=== PATIENT | female | born 1990 | race Caucasian/White ===

== ENCOUNTER → 2016-06-03 | Outpatient (CLI) | payer OTHER ==
--- NOTE | 2016-06-03 14:53 | US ---
Sonography Limited to the Right Upper Quadrant of the Abdomen Clinical History: 25-year-old female with right upper quadrant pain for 5 weeks, worsening after eati ng. The patient has a history of type 1 diabetes mellitus. ICD10 Diagnostic Code: R10.11. Technique: A curvilinear 5 MHz transducer was used to sonographically evaluate the right upper quadra nt of the abdomen. A linear 9 MHz transducer was used to evaluate the hepatic contour. A cine clip wa s acquired through the gallbladder, with the patient in a left lateral decubitus position. Color Dopp ler is used. Comparison study: None. Findings: The pancreas is seen in a limited fashion, and the visualized aspects appear normal. The ab dominal aorta is normal in size, and tapers normally. The visualized IVC is normal in caliber. The ma in portal vein is patent. There is no ascites or right pleural effusion. The liver measures 14.4 cm a long right midaxillary line. There is no focal hepatic mass. There is no intra- or extrahepatic bile duct dilatation. The common bile duct measures 2.9 mm. The gallbladder is moderately distended, with no stones, sludge, wall thickening, pericholecystic fluid, or sonographic Kim sign. The wall thick ness is 2.5 mm. The right kidney is at the lower limits of normal in size (given the patient's body h abitus), and measures 8.3 x 4.4 x 5.0 cm with a normal renal cortical thickness of 1.1 cm. There is n o hydronephrosis or focal renal mass. Impression: There is no sonographic explanation for the patient's postprandial right upper quadrant p ain. If there is further clinical concern regarding possible gallbladder dyskinesia, a nuclear medicine he patobiliary scan with gallbladder ejection fraction could be considered.
== END ==
LOC: BRMIMAGING 13:02
DX: R10.11 Right upper quadrant pain (principal)
CPT/HCPCS: 76705-PO

== ENCOUNTER → 2016-06-18 | Outpatient (CLI) | payer OTHER ==
[~2016-06-18] MED LIST: SINCALIDE 5 MCG VIAL IJ ONE
--- NOTE | 2016-06-18 11:40 | NM ---
Nuclear Medicine Hepatobiliary Scan with ejection fraction. Clinical Indications: Right upper quadrant pain. Comparison: Abdominal ultrasound June 03, 2016. Technique: The patient received 5.4 mCi technetium 99m Choletec intravenously and images of the abdo men were obtained immediately and then at 1 minute intervals through 30 minutes. Supplemental images were taken in multiple projections. At 30 minutes 50.7 grams of fat in Nepro was administered and dy namic imaging was performed over the gallbladder for 30 minutes. A time-activity curve was generated. Findings: Clearance of activity by the liver is normal. Activity promptly reaches the biliary ducts and duodenum. The gallbladder shows prompt uptake at 10 minutes, with no evidence of obstruction of the cystic duct. Activity is present in the small bowel. Following administration of fat and Nepro there is normal emptying of the gallbladder with the ejecti on fraction calculated at 69 % (normal is 35 to 75%). Impression: Normal study with no evidence for cystic or common duct obstruction.
== END ==
LOC: FIMAGING 08:15
DX: R10.11 Right upper quadrant pain (principal)
CPT/HCPCS: 78227; A9537

== ENCOUNTER 2017-11-28 13:34 | Inpatient (IN) | payer OTHER ==
--- NOTE | 2017-11-28 13:50 | EDPHY ---
H & P Stated Complaint: severe pain s/p port placement - Personal History LMP (Females 10-55): 1-7 Days Ago Current Tetanus Diphtheria and Acellular Pertussis (TDAP): Unsure - Medical/Surgical History Hx Asthma: No Hx Chronic Respiratory Disease: No Hx Diabetes: No Hx Cardiac Disease: No Hx Renal Disease: No Hx Cirrhosis: No Hx Alcoholism: No Hx HIV/AIDS: No Hx Splenectomy or Spleen Trauma: No Other PMH: DMI hypothyroid, stomach ca, chemo - Social History Smoking Status: Never smoked Time Seen by Provider: 11/28/17 13:49 Constitutional: Initial Vital Signs Temperature (C) 36.7 C 11/28/17 13:35 Respiratory Rate 18 11/28/17 13:35 Blood Pressure 106/69 11/28/17 13:35 O2 Delivery Mode Room Air Allergies/Adverse Reactions: ondansetron [From Zofran] Allergy (Verified 11/28/17 20:55) Other-Enter Comments Home Medications: Medication Instructions Recorded Control 1 tab PO HS 11/28/17 Chemo 1 dose IV Q14D 11/28/17 Citalopram [CeleXA] 20 mg PO HS 11/28/17 Insulin Pump, Patient Own 1 ea MISC AD 11/28/17 Levothyroxine [Synthroid 125 mcg 125 mcg PO DAILY06 11/28/17 (*)] Liothyronine Sodium [Cytomel 5 mcg 5 mcg PO DAILY 11/28/17 (*)] Melatonin [Melatonin 3 MG (*)] 3 mg PO HS 11/28/17 Medical Decision Making - Diagnostics Imaging Results: Imaging Impressions Extremity Venous Study 11/28/17 13:54 Impression: No evidence of vein thrombosis or loculated fluid collection in the right arm or neck. Results called and discussed with Mariano Cabello MD, at 11/28/2017 16:[address] 11/28/17 16:58 Impression: Negative targeted CT of the neck with attention to the tunneled catheter at the site of patient's symptomatology with no abscess or other abnormality identified. There is no evidence for vascular obstruction. Results called and discussed with Mariano Cabello MD on 11/28/2017 at 18:37. ED Course/Re-evaluation: CHIEF COMPLAINT: Port site pain HISTORY OF PRESENT ILLNESS: The patient is a 27 y/o female with a history of a right internal jugular power port placement and stomach cancer complaining of severe pain at the site where the incised the right IJ. On 11/17/17, 1.5 weeks ago, she had the right IJ power port placed. She initially had mild tenderness at the site of the port, but this was to be expected. 1 week ago she had another round of chemotherapy without complications. Over the last several days she developed pain at the site of the right IJ incision. She tried applying heat and taking pain medications, including Percocet, without relief of symptoms. Today the pain exacerbated, so she decided to present to the emergency department. Patient reports that Fentanyl and Dilaudid work well for her pain. Denies chest pain, shortness of breath, numbness, paresthesias, headache. REVIEW OF SYSTEMS: A 10 point review of systems was performed and is negative with the exception of the elements mentioned in the history of present illness. PHYSICAL EXAM: HR, BP, O2 Sat, RR. Temp noted General Appearance: Alert, well hydrated, appropriate, and non-toxic appearing. Head: Atraumatic without scalp tenderness or obvious injury Eyes: Pupils equal, round, reactive to light and accommodation, EOMI, no trauma , no injection. Ears: Clear bilaterally, no perforation, normal landmarks Nose: Atraumatic, no rhinorrhea, clear. Throat: There is no erythema or exudates, no lesions, normal tonsils, mucus membranes moist. Neck: Severe tenderness of the right internal jugular at site of incision to place the port. Supple, no lymphadenopathy. Respiratory: No retractions, no distress, no wheezes, and no accessory muscle use. Lungs are clear to auscultation bilaterally. Cardiovascular: Regular rate and rhythm, no murmurs, rubs, or gallops. Bilateral carotid, radial, dorsalis pedis, and posterior tibial pulses intact. Good capillary refill all extremities. Gastrointestinal: Abdomen is soft, nontender, non-distended, no masses, no rebound, no guarding, no peritoneal signs. Musculoskeletal: Normal active ROM of all extremities, atraumatic. Neurological: Alert, appropriate, and interactive. Non-focal neuro. Skin: No rashes, good turgor, no nodules on palpation. Past medical history: DMI, hypothyroid, stomach cancer on chemo Past surgical history: Right IJ power port placement Family history: Denies Social history: Mother at bedside, single, employed DIAGNOSTICS/PROCEDURES/CRITICAL CARE TIME: Soft tissue neck US: Pending at time of shift change DIFFERENTIAL DIAGNOSIS: The differential diagnosis for the patient's neck pain included but was not limited to power port placement complication, blood clot, fluid collection, musculoskeletal pain, abscess. MEDICAL DECISION MAKING: The patient is a 27 y/o female with a history of a right internal jugular power port placement and stomach cancer presenting with severe pain at the site where right IJ was incised. On exam she has severe tenderness of the right internal jugular at site of incision to place the port. Soft tissue neck US ordered; 1 mg IV Dilaudid and 4 mg IV Zofran given. Laboratory studies are not indicated at this time. 1500: Patient care turned over to Dr. Cabello at shift change. Ultrasound studies still pending. (Nayan Zuñiga) Other Provider: Received signout from Zara at 1500. Patient with pain in R neck after recent port placement. Plan to obtain US results and likely discharge home. 1550: US called to me as normal. On re-assessment of patient, she still complains of severe pain in to proximal right neck, no chest pain. I will expand workup to include labs and likely CT of neck as etiology of pain is unclear. 1815: Patient noted to be neutropenic and now spiking a fever. I have ordered lactate, blood cultures, empiric antibiotics. Clearly patient will need to be admitted - family is unsure if they want to be admitted here vs. transfer to [facility] where her oncologist is. I have asked doc line to be paged. 1835: Limited CT-chest called to me as negative for abnormality, per Dr. Kohli. 1900: Patient comfortable with admission here at [facility]. I spoke with [facility] oncologist on-call and they agree with plan. Venous lactate <2 so no signs of septic shock. Patient treated with IV cefepime after blood cultures drawn and IV NS. On re-evaluation she feels improved. Etiology of pain in right proximal neck currently unknown. (Mariano Cabello) - Data Points Laboratory Results: Laboratory Results 11/28/17 16:45 11/28/17 11/28/17 11/28/17 18:20 16:57 16:45 WBC 0.10 10^3/uL L* 10^3/uL (3.80-9.50) RBC 4.36 10^6/uL 10^6/uL (4.18-5.33) Hgb 13.2 g/dL g/dL (12.6-16.3) POC Hgb 13.9 gm/dL gm/dL (12.6-16.3) Hct 38.9 % % (38.0-47.0) POC Hct 41 % % (38-47) MCV 89.2 fL fL (81.5-99.8) MCH 30.3 pg pg (27.9-34.1) MCHC 33.9 g/dL g/dL (32.4-36.7) RDW 13.0 % % (11.5-15.2) Plt Count 121 10^3/uL L 10^3/uL (150-400) MPV 10.5 fL fL (8.7-11.7) Neut % (Auto) ARCHITECTURE INSTRUCTOR Lymph % (Auto) ARCHITECTURE INSTRUCTOR [place] % (Auto) ARCHITECTURE INSTRUCTOR Eos % (Auto) ARCHITECTURE INSTRUCTOR Baso % (Auto) ARCHITECTURE INSTRUCTOR Nucleat RBC Rel Count ARCHITECTURE INSTRUCTOR Absolute Neuts (auto) ARCHITECTURE INSTRUCTOR Absolute Lymphs (auto) ARCHITECTURE INSTRUCTOR Absolute Monos (auto) ARCHITECTURE INSTRUCTOR Absolute Eos (auto) ARCHITECTURE INSTRUCTOR Absolute Basos (auto) ARCHITECTURE INSTRUCTOR Absolute Nucleated RBC ARCHITECTURE INSTRUCTOR Immature Gran % ARCHITECTURE INSTRUCTOR Seg Neutrophils % 1 % % Band Neutrophils % 1 % % Lymphocytes % 91 % % Monocytes % 2 % % Eosinophils % 3 % % Basophils % 2 % % Immature Gran # ARCHITECTURE INSTRUCTOR RBC/WBC/PLT Morphology NORMAL (NORMAL) Platelet Estimate DECREASED L (ADEQ) Smear Review By Pending VBG Lactic Acid 1.7 mmol/L mmol/L (0.7-2.1) POC Sodium 137 mEq/L mEq/L (135-145) POC Potassium 4.3 mEq/L mEq/L (3.3-5.0) POC Chloride 101 mEq/L mEq/L (97-110) POC BUN 11 mg/dL mg/dL (7-23) POC Creatinine 0.7 mg/dL mg/dL (0.6-1.0) POC Glucose 235 mg/dL H mg/dL (70-100) Medications Given: Hydromorphone HCl (Dilaudid) 0.2 - 1 mg IVP Q2 PRN PRN Reason: Pain, Severe Unable to Take PO Stop: 12/08/17 19:25 Last Admin: 11/28/17 21:15 Dose: 1 mg Sodium Chloride (Ns) 1,000 mls @ 150 mls/hr IV CONT JLUIS Stop: 05/27/18 19:29 Last Admin: 11/28/17 20:58 Dose: 1,000 mls Discontinued Medications Acetaminophen (Tylenol Rectal) 650 mg OK EDNOW ONE Stop: 11/28/17 18:31 Last Admin: 11/28/17 18:39 Dose: 650 mg Hydromorphone HCl (Dilaudid) 1 mg IVP EDNOW ONE Stop: 11/28/17 13:54 Last Admin: 11/28/17 14:20 Dose: 1 mg Hydromorphone HCl (Dilaudid) 1 mg IVP EDNOW ONE Stop: 11/28/17 16:03 Last Admin: 11/28/17 16:05 Dose: 1 mg Hydromorphone HCl (Dilaudid) 1 mg IVP EDNOW ONE Stop: 11/28/17 18:32 Last Admin: 11/28/17 18:35 Dose: 1 mg Sodium Chloride (Ns) 1,000 mls @ 0 mls/hr IV EDNOW ONE; Wide Open PRN Reason: Protocol Stop: 11/28/17 18:16 Last Admin: 11/28/17 18:39 Dose: 1,000 mls Cefepime HCl 2 gm/ Sodium (Chloride) 100 mls @ 200 mls/hr IV EDNOW ONE PRN Reason: Protocol Stop: 11/28/17 19:06 Last Admin: 11/28/17 19:45 Dose: 100 mls Sodium Chloride (Ns) 2,900 mls @ 5,800 mls/hr 30 ml/kg infuse over 30 min ( 2900 ml) IV EDNOW ONE PRN Reason: Protocol Stop: 11/28/17 19:06 Last Admin: 11/28/17 19:46 Dose: 2,900 mls Promethazine HCl (Phenergan) 12.5 mg IVP ONCE ONE Stop: 11/28/17 14:15 Last Admin: 11/28/17 14:20 Dose: 12.5 mg Promethazine HCl (Phenergan) 12.5 mg IVP ONCE ONE Stop: 11/28/17 18:31 Last Admin: 11/28/17 18:34 Dose: 12.5 mg Point of Care Test Results: Chemistry 11/28/17 16:57 POC Sodium 137 mEq/L mEq/L (135-145) POC Potassium 4.3 mEq/L mEq/L (3.3-5.0) POC Chloride 101 mEq/L mEq/L (97-110) POC BUN 11 mg/dL mg/dL (7-23) POC Creatinine 0.7 mg/dL mg/dL (0.6-1.0) POC Glucose 235 mg/dL H mg/dL (70-100) ISTAT H&H 11/28/17 16:57 POC Hgb 13.9 gm/dL gm/dL (12.6-16.3) POC Hct 41 % % (38-47) Departure - Departure Disposition: [facility] In[facility] Acute Report Scribed for: Nayan Zuñiga Report Scribed by: Cokoie Stanton Date of Report: 11/28/17 Time of Report: 13:51
[2017-11-28] MEDS ORDERED: HYDROmorphONE/DILAUDID 2 MG/ML INJ IVP ONE ×3 (13:53→18:31)
[2017-11-28] MEDS ORDERED: ONDANSETRON 4 MG/2 ML VIAL IVP ONE (13:53)
[2017-11-28] MEDS ORDERED: PROMETHAZINE HCL 25 MG/ML INJ IVP ONE ×2 (14:14→18:30)
[2017-11-28] MEDS ORDERED: PROMETHAZINE HCL 25 MG/ML INJ ONE (14:15)
[2017-11-28] MEDS ORDERED: HYDROmorphONE/DILAUDID 1 MG/ML INJ ONE (16:03)
[2017-11-28] MEDS ORDERED: IOPAMIDOL (ISOVUE-300) 100 ML BTL ONE (17:14)
[2017-11-28 17:36] LABS: PLATELET COUNT 121 10^3/uL (150-400)
[2017-11-28] MEDS ORDERED: NS 1,000 ML IV ONE ×2 (18:15→22:08)
[2017-11-28] MEDS ORDERED: ACETAMINOPHEN 650 MG SUPP PR ONE (18:30)
[2017-11-28] MEDS ORDERED: CEFEPIME HCL 2 GM in NS 100 ML IV ONE (18:37)
[2017-11-28] MEDS ORDERED: NS 2,900 ML IV ONE (18:37)
[2017-11-28] MEDS ORDERED: ONDANSETRON DISINTEGRATING 4 MG TAB PO PRN (19:26)
[2017-11-28] MEDS ORDERED: ONDANSETRON 4 MG/2 ML VIAL IVP PRN (19:26)
[2017-11-28] MEDS: NS 1,000 ML IV SCH ×2 (20:58→23:01)
[2017-11-28] MEDS ORDERED: LOW OGESTREL PO SCH (21:00)
[2017-11-28] MEDS ORDERED: BIRTH CONTROL PO SCH (21:00)
[2017-11-28] MEDS: HYDROmorphONE/DILAUDID 1 MG/ML INJ IVP PRN (21:15)
[2017-11-28] MEDS ORDERED: NON-FORMULARY NEW DRUG (Insulin Pump, Patient Own 1 EA) MISC SCH (21:30)
[2017-11-28] MEDS ORDERED: D50W 25 GM/50 ML VIAL IVP PRN (21:42)
[2017-11-28] MEDS ORDERED: INSULIN PUMP, PATIENT OWN 1 EA MISC SCH (21:45)
[2017-11-28] MEDS: PROMETHAZINE HCL 25 MG/ML INJ IVP PRN (22:02)
[2017-11-28] MEDS: ACETAMINOPHEN 325 MG TAB PO PRN (22:06)
--- NOTE | 2017-11-28 22:13 | PDGENHP ---
History and Physical - Chief Complaint Acute neck pain - History of Present Illness Primary oncologist: Dr. Danny Roth at [facility] HPI: 27-year-old female presenting with acute neck pain characterized as an aching pain located in her right neck/right upper chest directly at the port cath incision site with associated fever, erythema, flushing, generalized fatigue. Patient reports the onset of the pain was several days prior, and duration has been persistent thereafter. The other symptoms including fever and fatigue began on the evening of presentation. Her pain has been somewhat alleviated by fentanyl and Dilaudid received in the emergency department. She otherwise denies any GI symptoms, reports that she has been eating and drinking normally, has been taking all of her home medications as prescribed. The patient received chemotherapy every 14 days, and her most recent dosage of Neulasta was 5 days prior. She reports that the Neulasta patch was leaking, they contacted the oncology coverage, and they were told that this was nothing to worry about. She subsequently received her most recent dosage of chemotherapy 1 day prior to this presentation. She reports that she has never experienced febrile neutropenia in the past. The patient also underwent right-sided IJ port placement on 11/17/2017, and at that time, the patient was experiencing what she felt was a URI. She was experiencing sore throat and sinus congestion. The port placement initially felt fine, but then several days prior to this presentation, the incision site in the right upper chest began to ache, as mentioned above. History Information - Allergies/Home Medication List Allergies/Adverse Reactions: ondansetron [From Zofran] Allergy (Verified 11/28/17 20:55) Other-Enter Comments Home Medications: Control 1 tab PO HS 11/28/17 [Last Taken 11/27/17 21:00] Chemo 1 dose IV Q14D 11/28/17 [Last Taken 11/21/17] Citalopram [CeleXA] 20 mg PO HS 11/28/17 [Last Taken 11/27/17 21:00] Insulin Pump, Patient Own 1 ea MISC AD 11/28/17 [Last Taken 11/28/17] Levothyroxine [Synthroid 125 mcg (*)] 125 mcg PO DAILY06 11/28/17 [Last Taken 08:00] Liothyronine Sodium [Cytomel 5 mcg (*)] 5 mcg PO DAILY 11/28/17 [Last Taken 07/17 08:00] Melatonin [Melatonin 3 MG (*)] 3 mg PO HS 11/28/17 [Last Taken 11/27/17 21:00] I have personally reviewed and updated: family history, medical history, social history, surgical history - Past Medical History Additional medical history: Rhabdomyosarcoma of the abdominal wall diagnosed in 2010, status post 11 months of treatment beginning at [facility], and then subsequent remission until September of 2017, when the area was noted in her right mid abdomen subcutaneous tissue, and she began receiving chemotherapy at [facility]. Retinopathy. Diabetes mellitus type 1. Hypothyroidism - Surgical History Additional surgical history: 11/17/2017 right IJ port placement. No previous bowel surgeries - Family History Additional family history: Sister with URI several days prior - Social History Smoking Status: Never smoked Alcohol Use: None Drug Use: None Additional social history: Independent in ADLs Review of Systems Review of Systems: ROS: 10pt was reviewed & negative except for what was stated in HPI & below Constitutional: Reports: fever, weakness EENMT: Reports: nose congestion, sore throat, other (Right neck pain) Physical Exam Physical Exam: Temp Pulse Resp BP Pulse Ox 38.6 C H 125 H 20 109/57 L 95 11/28/17 20:25 11/28/17 20:25 11/28/17 20:25 11/28/17 20:25 11/28/17 20:25 Constitutional: no apparent distress, chronically ill appearing, uncomfortable, No not in pain (Mild right neck pain) Eyes: PERRL, anicteric sclera, EOMI Ears, Nose, Mouth, Throat: hearing normal, other (Tacky mucous membranes) Cardiovascular: tachycardia, No systolic murmur, No irregularly irregular, No edema Respiratory: no respiratory distress, no rales or rhonchi, clear to auscultation Gastrointestinal: normoactive bowel sounds, soft, non-tender abdomen, no palpable masses, No distension Genitourinary: no bladder fullness, no bladder tenderness Skin: other (Blanchable erythema at the incision site along her lower right neck /right upper chest with a healed incision site, very mildly indurated, not fluctuant, port catheter is palpable in the subcutaneous tissue) Musculoskeletal: other (Painful antral flexion of the neck at the previous IJ site, but no meningismus) Neurologic: AAOx3, sensation intact bilaterally, No weakness Psychiatric: interacting appropriately, not anxious, not encephalopathic, thought process linear Lymph, Heme, Immunologic: other (No tender or enlarged submandibular or anterior cervical lymph nodes, mildly tender posterior cervical chain) Lab Data & Imaging Review 11/28/17 16:45 WBC 0.10 10^3/uL (3.80-9.50) L* 11/28/17 16:45 RBC 4.36 10^6/uL (4.18-5.33) 11/28/17 16:45 Hgb 13.2 g/dL (12.6-16.3) 11/28/17 16:45 POC Hgb 13.9 gm/dL (12.6-16.3) 11/28/17 16:57 Hct 38.9 % (38.0-47.0) 11/28/17 16:45 POC Hct 41 % (38-47) 11/28/17 16:57 MCV 89.2 fL (81.5-99.8) 11/28/17 16:45 MCH 30.3 pg (27.9-34.1) 11/28/17 16:45 MCHC 33.9 g/dL (32.4-36.7) 11/28/17 16:45 RDW 13.0 % (11.5-15.2) 11/28/17 16:45 Plt Count 121 10^3/uL (150-400) L 11/28/17 16:45 MPV 10.5 fL (8.7-11.7) 11/28/17 16:45 Neut % (Auto) HEAD START ASSISTANT TEACHER 11/28/17 16:45 Lymph % (Auto) HEAD START ASSISTANT TEACHER 11/28/17 16:45 [place] % (Auto) HEAD START ASSISTANT TEACHER 11/28/17 16:45 Eos % (Auto) HEAD START ASSISTANT TEACHER 11/28/17 16:45 Baso % (Auto) HEAD START ASSISTANT TEACHER 11/28/17 16:45 Nucleat RBC Rel Count HEAD START ASSISTANT TEACHER 11/28/17 16:45 Absolute Neuts (auto) HEAD START ASSISTANT TEACHER 11/28/17 16:45 Absolute Lymphs (auto) HEAD START ASSISTANT TEACHER 11/28/17 16:45 Absolute Monos (auto) HEAD START ASSISTANT TEACHER 11/28/17 16:45 Absolute Eos (auto) HEAD START ASSISTANT TEACHER 11/28/17 16:45 Absolute Basos (auto) HEAD START ASSISTANT TEACHER 11/28/17 16:45 Absolute Nucleated RBC HEAD START ASSISTANT TEACHER 11/28/17 16:45 Immature Gran % HEAD START ASSISTANT TEACHER 11/28/17 16:45 Seg Neutrophils % 1 % 11/28/17 16:45 Band Neutrophils % 1 % 11/28/17 16:45 Lymphocytes % 91 % 11/28/17 16:45 Monocytes % 2 % 11/28/17 16:45 Eosinophils % 3 % 11/28/17 16:45 Basophils % 2 % 11/28/17 16:45 Immature Gran # HEAD START ASSISTANT TEACHER 11/28/17 16:45 RBC/WBC/PLT Morphology NORMAL (NORMAL) 11/28/17 16:45 Platelet Estimate DECREASED (ADEQ) L 11/28/17 16:45 VBG Lactic Acid 1.7 mmol/L (0.7-2.1) 11/28/17 18:20 POC Sodium 137 mEq/L (135-145) 11/28/17 16:57 POC Potassium 4.3 mEq/L (3.3-5.0) 11/28/17 16:57 POC Chloride 101 mEq/L (97-110) 11/28/17 16:57 POC BUN 11 mg/dL (7-23) 11/28/17 16:57 POC Creatinine 0.7 mg/dL (0.6-1.0) 11/28/17 16:57 POC Glucose 235 mg/dL (70-100) H 11/28/17 16:57 Visualized and Interpreted Chest x-ray results: Yes Chest X-Ray results: no infiltrate Visualized and Interpreted imaging results: Yes Interpretation: CT of the neck without any pathologically enlarged lymph nodes, no abscess Assessment & Plan Assessment: 27-year-old female presents with neutropenic fever most likely secondary to surgical incision site cellulitis Plan: 1. Neutropenic fever. Acute, new problem this provider, further workup indicated. Evidenced by fever of 39.2 degrees F, heart rate in the 130s, currently not hypotensive, ANC undetectable with a total white blood cell count of 100 -suspect that her neutropenia may be secondary to poor absorption and uptake of Neulasta administered 5 days ago with ongoing chemotherapy -will get oncology consultation, order outside records from [facility] -I suspect that the site of infection is her incision site cellulitis, and will broaden antibiotics at this time with IV vancomycin, continue IV cefepime -check lactic acid level -give 1 L normal saline bolus given her ongoing tachycardia, and then normal saline 150 an hour maintenance -check respiratory viral panel, check urinalysis 2. Rhabdomyosarcoma. Recurrent September of 2017, currently receiving chemotherapy, will get the outside records from her primary oncology office 3. Pancytopenia secondary to chemotherapy. Continue monitor CBC 4. Diabetes mellitus type 1 with hyperglycemia. Continue home insulin pump, continue monitor electrolytes to ensure no development of DKA and will recheck at this time given worsening tachycardia Diet. Regular Prophylaxis. High risk patient, hold pharmacologic to ensure platelet count is not actively dropping, placed on SCDs, consider Lovenox 40 tomorrow depending on platelet count Code. Full Disposition. Anticipated discharge uncertain this time, anticipated length stay is greater than 48 hr for reasonable medical necessity including acute neutropenic fever which has yet to be clinically controlled with other high risk diabetes mellitus type 1 and pancytopenia. I have discussed patient's presentation with Dr. Mariano Cabello, he reports to me the patient's development of neutropenic fever since she has been in the emergency department, he relates to me the patient has had neck imaging demonstrating no evidence of underlying abscess or clot in the right IJ.
[2017-11-28] MEDS ORDERED: VANCOMYCIN 1.5 GM in D5W 250 ML IV SCH (22:30)
[2017-11-28] MEDS ORDERED: VANCOMYCIN 1.5 GM in NS 250 ML IV SCH (22:30)
[2017-11-28] MEDS: HYDROmorphONE/DILAUDID 2 MG TAB PO PRN (22:56)
[2017-11-28] MEDS: CITALOPRAM 20 MG TAB PO SCH (22:56)
[2017-11-28] MEDS: MELATONIN 3 MG TAB PO SCH (22:56)
[2017-11-28] MEDS: NORGESTREL ETHINYL ESTRADIOL PO SCH (23:00)
[2017-11-29] MEDS: ACETAMINOPHEN 325 MG TAB PO PRN ×4 (01:46→18:15)
[2017-11-29] MEDS: PROMETHAZINE HCL 25 MG TAB PO PRN ×2 (03:53→10:30)
[2017-11-29] MEDS: HYDROmorphONE/DILAUDID 2 MG TAB PO PRN ×2 (03:53→08:25)
[2017-11-29] MEDS ORDERED: CEFEPIME HCL 2 GM in NS 100 ML IV SCH (04:00)
[2017-11-29 05:03] LABS: PLATELET COUNT 59 10^3/uL (150-400)
[2017-11-29] MEDS: LEVOTHYROXINE 125 MCG TAB PO SCH (06:11)
[2017-11-29] MEDS: NS 1,000 ML IV SCH ×2 (08:21→18:07)
[2017-11-29] MEDS: LIOTHYRONINE SODIUM 5 MCG TAB PO SCH (08:31)
--- NOTE | 2017-11-29 08:47 | HOSPPROG ---
Hospitalist Progress Note Assessment/Plan: # neutropenic fever - d/t MSSA bacteremia - will d.w onc whether she will need neupogen # MSSA bacteremia - suspect source is recent port placement - cont abx, taper per ID - will need port removed # recurrent rhabdomyosarcoma s/p recent VAC/IE, had neupogen patch which may have been ineffective # pancytopenia d/t chemo # DM1 - continue home insulin pump Subjective: still with chills; slight cough Objective: Vital Signs Temp Pulse Resp BP Pulse Ox 36.6 C 106 H 16 119/69 98 11/29/17 08:00 11/29/17 08:00 11/29/17 08:00 11/29/17 08:00 11/29/17 08:00 Microbiology 11/28/17 22:28 Respiratory Panel (PCR) - Final Nasal, Sinus - Swab Human Rhinovirus/Enterovirus Laboratory Results 11/29/17 04:17 11/29/17 04:17 11/28/17 11/29/17 11/30/17 05:59 05:59 05:59 Intake Total 5487 Output Total 600 Balance 4887 PET IMPRESSION: 1. FDG-avid mass in the subcutaneous fat of the right anterior abdominal wall highly suspicious for metastatic rhabdomyosarcoma. 2. Right level 2A lymph node demonstrates low-level FDG uptake and is minimally increased in size when compared to 2011. Additionally, there is a mildly prominent left level 2A lymph node also with low-level FDG uptake. These are favored to be reactive given FDG uptake in the bilateral tonsils. Recommend attention at follow-up. 3. Focal increased FDG uptake within the left anterior tibialis muscle without CT correlate is likely physiologic and may be due to regional trauma/muscle strain. Recommend clinical correlation with patient's history and attention at follow-up. 4. Intense homogenous FDG uptake throughout the thyroid which may be due to patient's thyroid hormone medication. Correlate with thyroid function tests. If you are a health care provider and have any questions regarding this or any other Nuclear Medicine report please call: [phone]. The Nuclear Medicine reading room location is: [address] We are staffed 8 AM to 5 PM Tuesday through Tuesday. For urgent matters after hours or on weekends please call [phone]. If you are a patient and have questions about your report please contact your health care provider. ECHO The left ventricle is normal in size, thickness and function. No regional wall motion abnormalities noted. EF 60-65% The right ventricle is normal in size, thickness and function. The left atrium is normal in size. The right atrium is normal in size. The mitral valve leaflets appear normal. There is no evidence of stenosis or prolapse. The tricuspid valve leaflets are thin and pliable and the valve motion is normal. The aortic valve is tri-leaflet with thin, pliable leaflets that move normally. The aortic root is normal. The proximal ascending aorta is normal in size. There is no evidence of a pericardial effusion. There is no comparison study available. MR Face IMPRESSION: 1. Stable enhancing soft tissue within the left pterygopalatine fossa, extending into the pterygomaxillary fissure and foramen rotundum, unchanged since 10/06/2016 outside MRI of the face. Findings remain suggestive of treatment change; no evidence of locally recurrent tumor. 2. 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 Onc History ONCOLOGY HISTORY: 1m h/o left facial numbness ? seen by PCP who ordered CT scan which revealed a Left nasal cavity mass. 02/23/2011 ? MRI Inner auditory canals - hypoenhancing mass centered in left nasal cavity, erosion of left turbinate, extension into left pterygopalatine fossa, sphenoid sinus, left nasopharynx and ethmoid air cells. 03/01/2011 ? Biopsy of Left nasal mass (Dr. Wells, ENT) PATH : Rhabdomyosarcoma with FKHR rearrangement, + CD56 AND Myogen. 03/11/2011 ? PET CT - left nasal cavity mass with increased uptake- destruction of left maxillary sinus wall. No LAD, No lung nodules, No liver lesions. 03/19/2011 ? Started Chemotherapy Treatment - Cyclophosphamide/mesna, vincristine, and dactinomycin. Completed 40 weeks. 03/2011-04/2011 - Completed radiation therapy at [facility] 02/08/2012 - Consult Dr. Urbina (Opthomology) ? Radiation retinopathy. Avastin every 6 weeks. 01/2012-09/2016 ? Surveillance MRI face and Chest CT ? no evidence of recurrence 09/2017 ? Patient noted new pain in right abdomen, initially thought from insulin infusion site but didn?t improve 09/30/17 US umbilicus - 3.8 x 3.7 x 2.5cm heterogenous hypoechoic region in deep subcutaneous tissue right of midline. Also noted tiny fat only reducible hernia. 09/30/17 CT Abdomen ? 3.7 x 3.2cm multilobulated soft tissue mass within deep subcutaneous tissues near umbilicus. 10/11/[address] Samuel ([facility]) - periumbilical tenderness with fullness and pain just lateral to umbilicus. Recommend US drainage. 10/18/17 CT AP - 3.7 x 3.4cm abdominal wall mass right of midline. No liver lesions, bases of lungs normal. 10/18/17 ? US Biopsy Right abdominal Wall mass ([facility])? 3.1 x 2.8 x 4.4cm mass present just right of umbilicus. PATH: rhabdomyosarcoma likely embryonal 11/03/17 CT Chest ? 3mm nodule on Right middle lobe lung, 9mm lesion indeterminate lesion within left lobe of liver. Reviewed at [facility] 11/07/17 - nodule next to vessel, very small and indeterminate recommend monitoring during surveillance CTs. 11/03/17 MRI Face - Stable ill-defined enhancement in the left pterygopalatine fossa and soft tissue thickening extending through foramen rotundum and along pterygomaxillary fissure. No change from previous MRI. 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 Onc Plan: Rhabdomyosarcoma: Recurrent. Metastatic No disease outside her primary recurrence in her abdominal wall. I will plan to implement treatment with VAC/ IE ( Ewings regimen) a bit more aggressive than her primary therapy. Will go to surgery after 4 cycles of chemo. Depending on tolerance would then consider following up for total of 10 doses. There is also good data on continuation of therapy with low dose vinorelbine + oral CTX which improved long-term outcomes. We will discuss this with the patient. Admit today. Modified her nausea regimen as she was intolerant of Zofran previously. RTC in 2 weeks with admission for IE. Path: Comment: A history of prior Rhabdomyosarcoma was provided. Based on the history , this tumor is most-likely recurrent. Ancillary molecular testing was not performed for subclassification (and may not be necessary) in-view of the known histsory. Please contact the lab if molecular testing is indicated for treatment related reasons. The light microscopic (histologic) features favor Embryonal rhabdomyosarcoma. - Physical Exam Constitutional: uncomfortable (shivering) Cardiovascular: regular rate and rhythym, no murmur, rub, or gallop Respiratory: no respiratory distress, no rales or rhonchi, clear to auscultation Gastrointestinal: normoactive bowel sounds, soft, non-tender abdomen, other ( small subcutaneous mass RUQ) Musculoskeletal: other (R chest with port; some erythema at IJ insertion site, very TTP) ICD10 Worksheet Patient Problems: Problems Problem Status Onset Neutropenic fever Acute
[2017-11-29] MEDS: HYDROmorphONE/DILAUDID 1 MG/ML INJ IVP PRN ×8 (09:16→23:06)
--- NOTE | 2017-11-29 09:35 | PDMN ---
Medical Necessity Medical necessity: [facility] [place] M87: chemotherapy A-2 days; neutropenic fever with cellulitis at incision site of IJ port placement, pancytopenia, in pt with hx of rhabdomyosarcoma - recurrent -currently on chemo, DM1 with hyperglycemia, Onc. consult pending, anticipate > 2 midnights ongoing med nec care
--- NOTE | 2017-11-29 10:46 | GCON ---
[f rep st] CONSULTATION INFECTIOUS DISEASES CONSULTATION DATE OF CONSULTATION: 11/29/2017 REFERRING PHYSICIAN: Willie Owens MD REASON FOR CONSULTATION: Neutropenic fever with bacteremia. HISTORY OF PRESENT ILLNESS: The patient is a 27-year-old female with a past medical history of rhabdomyosarcoma, who recently re-initiated chemotherapy last week via a right sided port. The patient had her port placed at the [facility] on 11/17/2017, in anticipation of chemotherapy. She was initiated on treatment with vincristine, Adriamycin, and doxorubicin with use of transcutaneous Neulasta. The patient notes there was some leaking with use of her Neulasta. After port placement, she notes that she had discomfort in bilateral trapezius regions. Over the last 2 days, she developed pain in her right anterior chest and neck, which subsequently was followed by the development of fever and chills. She also was noted to have profound neutropenia. Her maximal temperature yesterday evening was 39.8. Blood cultures were obtained at the time of admission and both sets are now showing growth of MSSA. She was started on vancomycin and cefepime, based on her presentation. She also had recent contact with her sister, who had a respiratory illness and does [employer] for young children, also who had respiratory illness. Respiratory pathogen panel by PCR revealed positivity for human rhinovirus/enterovirus. The patient does not have significant respiratory symptoms, other than dyspnea with going up the stairs. As part of her evaluation, the patient underwent ultrasound of the right upper extremity, which showed no evidence of DVT with normally compressible internal jugular vein. Subsequently, CT scan of the neck was performed, which did not show evidence of venous obstruction or abscess. The patient does not have nausea, vomiting or diarrhea. She does not have arthralgias in other locations, other than her neck. She does describe having rigors overnight. No urinary symptoms other than mild dysuria, which she believes is chemotherapy associated. The patient did travel to [place] post port placement. She also obtained a new puppy which has been diagnosed with Giardia and is on therapy. She notes that she has maintained hand hygiene after handling the dog. Given the above findings, I am now asked to assist in her ongoing management. PAST MEDICAL HISTORY: Rhabdomyosarcoma as outlined above, type 1 diabetes with insulin pump, hypothyroidism, retinopathy associated with prior radiation. PAST SURGICAL HISTORY: Right IJ port placement on 11/17/2017, cataract surgery. CURRENT MEDICATIONS: Vancomycin 1.5 g IV q.12 hours, cefepime 2 g IV q.8 hours , Synthroid 125 mcg p.o. daily, Celexa 20 mg p.o. at bedtime, Dilaudid as needed for pain, Cytomel 5 mcg p.o. daily, melatonin 3 mg p.o. at bedtime, insulin pump, oral contraceptive daily. ALLERGIES: Zofran, associated with headache. SOCIAL HISTORY: Patient does not smoke or drink alcohol. Recent acquisition of new puppy who was positive for Giardia. 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 Ill contacts as outlined above. FAMILY HISTORY: Mother with asthma. REVIEW OF SYSTEMS: Outside that noted in the HPI, the remainder of 10-system review is unremarkable. PHYSICAL EXAMINATION: VITAL SIGNS: Temperature maximum 39.8, temperature current 36.6, heart rate 106, respiratory rate 16, blood pressure 119/69, oxygen saturation 98% on room air. GENERAL: Patient is an obese female in no acute distress. She appears nontoxic. She appears fatigued. HEENT: There is no scleral icterus, conjunctival injection, or conjunctival petechiae. Oropharynx shows dry mucous membranes. There are no other lesions noted. There is no nasal discharge. There is no tenderness over the frontal, maxillary , or mastoid area. NECK: There is tenderness anteriorly at site of prior puncture for port placement, with surrounding erythema; there is no palpable fluctuance or expressible drainage. There is no tenderness over the port itself , but erythema extends toward the port site and to the central chest. There are no areas of crepitus or fluctuance. There is no point tenderness over the cervical spine. CHEST: Clear to auscultation bilaterally without adventitious sounds. Respiratory effort is normal. CARDIOVASCULAR: Tachycardic, without murmurs, gallops, or rubs. ABDOMEN: Obese, nontender, nondistended. Subcutaneous insulin pump without surrounding erythema or tenderness. There is no palpable organomegaly. MUSCULOSKELETAL: There is no cyanosis, clubbing, or edema. SKIN: See neck exam for details. There are no stigmata of endocarditis. The skin is warm and dry to touch. NEUROLOGIC: The patient is alert and interacts appropriately with examiner. Cranial nerves 2-12 are grossly intact. Sensation is grossly intact. Muscle tone and bulk are normal. LYMPHATICS: No cervical or supraclavicular nodes noted. LABORATORY DATA: White blood cell count less than 0.1, hematocrit 30.7, platelets 59, neutrophils 0%. Serum creatinine is 0.7, glucose 246, AST 13, ALT 35, bilirubin 0.9, alkaline phosphatase 48, albumin 2.5. Venous lactate is 1.5. Urinalysis shows 1-3 red blood cells and 1-3 white blood cells. Blood cultures with 2 of 2 sets positive for gram-positive cocci in clusters, which by PCR are identified as MSSA. Respiratory panel by PCR shows positivity for rhinovirus/enterovirus. Chest x-ray shows no infiltrates. Ultrasound and neck CT as outlined above. IMPRESSION: 1. Neutropenic fever with methicillin-sensitive Staphylococcus aureus bacteremia associated with port infection: Clinical findings are compatible with port infection and concomitant MSSA bacteremia. This will necessitate removal of port as a component of her therapy. Will change vancomycin and cefepime to nafcillin for targeted therapy against MSSA, based on clinical findings and low likelihood that she would have other contributing bacterial pathogens typically associated with neutropenic fever. Will obtain transthoracic echocardiogram to assess for endocarditis. 2. Rhinovirus/enteroviral infection: No significant respiratory symptoms currently. Patients with neutropenia can shed for prolonged periods. No specific therapy available for treatment of this entity. Will require droplet precautions while hospitalized. 3. Giardia exposure: New puppy with Giardia. Observe for symptoms of Giardia. RECOMMENDATIONS: 1. Nafcillin 2 g IV q.4 hours until bacteremia clears, with anticipation of completing therapy with cefazolin based on improved side effect profile. 2. Discontinue vancomycin and cefepime. 3. Repeat blood cultures tomorrow to assess for clearing of bacteremia. 4. Surgical consultation for port removal. 5. Transthoracic echocardiogram. 6. Droplet precautions. Thank you for this consultation. We will continue to follow the patient with you. /[id number]/MODL MTDD
[2017-11-29] MEDS: NAFCILLIN SODIUM 2 GM in D5W 100 ML IV SCH ×4 (11:03→23:06)
[2017-11-29] MEDS: PROMETHAZINE HCL 25 MG/ML INJ IVP PRN ×2 (11:09→17:47)
--- NOTE | 2017-11-29 11:51 | GCON ---
[f rep st] CONSULTATION ONCOLOGY CONSULTATION REASON FOR CONSULTATION: Febrile neutropenia in patient with sarcoma. HISTORY OF PRESENT ILLNESS: The patient is a 27-year-old woman who is diagnosed with a left nasal ca vity rhabdomyosarcoma in 2010. She started on chemotherapy in February 2011, with cyclophosphamide, v incristine, and Adriamycin, and was treated for 40 weeks. She then underwent proton beam radiation t herapy actually in March through April 2011 at [facility]. She went into a complete remission , was doing well, although she does have radiation retinopathy and is followed by Ophthalmology. In September of this year, she noted new pain in the right abdomen, initially thought to be related to the ins ulin infusion site, but was not improving. An ultrasound revealed a 3.8 cm mass in the deep subcutan eous tissue at the right midline and this was confirmed on CT scan at 3.7 x 3.2 cm. A biopsy of the mass revealed a rhabdomyosarcoma. She had a couple of indeterminate small lesions in the lung and on e in the liver. She was reviewed at the [facility] in October and he plan was to treat her with neoadjuvant chemotherapy since there was not any obvious sites of disea se and then completely resect the mass. It was recommended by Dr. Roth to receive VAC/IE, whic h is more an Mercado's regimen, but treatment is given every 14 days with a plan to go to surgery after 4 total cycles. She started chemotherapy on November 21 with the vincristine, Adriamycin, cyclophosph amide portion. She had a Neulasta OnPro device placed on her arm the next day and injected. Injects over 45 minutes and she reports that during injection, there was a small amount of fluid that seeped out. It was enough to get the adhesive wet, but not enough to get her shirt wet. She had had growt h factor before with her previous chemotherapy, and typically had had body aches. She did not get conrad dy aches from the Neulasta. She had a port placed on November 17 prior to starting chemotherapy. She started noticing pain in her neck and upper right chest where the port is located since Tuesday. Roseann use of the pain, she came to the emergency room, and then, she developed chills and associated fever. Cultures were drawn and blood count revealed that she was severely neutropenic. She was started on antibiotics. The cultures have returned to methicillin sensitive Staph aureus and she has been eval uated by Infectious Disease who has recommended removal of the port. She had some chills this mornin g and she did have a temperature to 38 degrees at about 4 a.m. She is also having some soreness in he r mouth, but no ulcerative lesions. She denies any diarrhea or cough. ALLERGIES: She is allergic to ondansetron. HOME MEDICATION: Reported as EstroGel control, melatonin, Cytomel, levothyroxine, citalopram, and insulin pump. CHRONIC ILLNESSES: Include: 1. Rhabdomyosarcoma as per HPI. 2. Type 1 diabetes. 3. Retinopathy from previous radiation. 4. Hypothyroidism. PAST SURGICAL HISTORY: Really unremarkable. FAMILY HISTORY: Unremarkable. SOCIAL HISTORY: Nonsmoker, nondrinker. REVIEW OF SYSTEMS: 10-point review of systems performed. Pertinent positives as per HPI, otherwise negative. PHYSICAL EXAMINATION: VITAL SIGNS: Current temperature is 36.6, pulse 106, blood pressure is 119/69 . In the ER, she spiked a fever 39.2 with heart rate 131 and blood pressure 135/83. GENERAL: She i s ill-appearing, but in no distress. HEENT: Oral mucosa is dry, but no thrush or mucositis. LUNGS: Clear. CARDIAC: Tachycardic, but regular. ABDOMEN: Soft. I cannot really feel the mass at this time, but she feels like it is still present. LYMPHATIC: Elin exam reveals no peripheral lymphade nopathy. NEURO: Grossly intact. LABORATORY/IMAGING: Yesterday, white count 0.1, today, it is even lower, hemoglobin is 10.2, platele t count 59,000. ANC is 0. Lactic acid was normal. Chemistries: Albumin 2.5, sodium 134. UA showe d 2+ blood and some ketones and glucose. Cultures showing both human rhinovirus, enterovirus in resp iratory panel, as well as Staph aureus in blood cultures. Chest x-ray was unremarkable. CT of the neck did not show any abscess. Doppler ultrasound did not show a blood clot. IMPRESSION: 1. Febrile neutropenia. 2. Methicillin-resistant Staphylococcus aureus in blood cultures. 3. Rhabdomyosarcoma, currently on chemotherapy with vincristine, Adriamycin, and cyclophosphamide, a lternating with ifosfamide and etoposide. She is day 9 of cycle 1 of chemotherapy. It is unclear if she actually received an adequate dose of Neulasta, particularly since she did get t he body aches and there were some leakage; therefore, while there can be disagreement about the benef it of using short-acting growth factor, I recommend we do it since she is severely neutropenic and conte ving positive blood cultures. I have spoken with Dr. Kohli and Dr. Oliveros today. I agree with removing the port and continuing ant ibiotics. I am attempting to contact her primary oncologist, Dr. Roth at the [facility] to upd ate him on her current situation. We will follow along with you while in the hospital. /[id number]/MODL
[2017-11-29] MEDS ORDERED: BUPIVACAINE 0.25% 30 ML SDV ONE (14:34)
[2017-11-29] MEDS ORDERED: LIDOCAINE 1% 300 MG/30 ML SDV ONE (14:34)
[2017-11-29] MEDS ORDERED: LR 1,000 ML IV ONE (15:56)
[2017-11-29] MEDS ORDERED: MIDAZOLAM 2 MG/2 ML VIAL ONE (16:01)
[2017-11-29] MEDS ORDERED: MIDAZOLAM 2 MG/2 ML VIAL IVP ONE (16:02)
--- NOTE | 2017-11-29 16:02 | PDANEPAE ---
ANE History of Present Illness infected port ANE Past Medical History - Pulmonary History Hx Oxygen in Use at Home: No Hx Sleep Apnea: No Sleep Apnea Screening Result - Last Documented: Negative - Endocrine History Hx Diabetes: No ANE Review of Systems Review of Systems: ANE Patient History - Allergies Allergies/Adverse Reactions: ondansetron [From Zofran] Allergy (Verified 11/28/17 20:55) Other-Enter Comments - Home Medications Home Medications: Chemo 1 dose IV Q14D 11/28/17 [Last Taken 11/21/17] Citalopram [CeleXA] 20 mg PO HS 11/28/17 [Last Taken 11/27/17 21:00] Levothyroxine [Synthroid 125 mcg (*)] 125 mcg PO DAILY06 11/28/17 [Last Taken 08:00] Liothyronine Sodium [Cytomel 5 mcg (*)] 5 mcg PO DAILY 11/28/17 [Last Taken 07/17 08:00] Melatonin [Melatonin 3 MG (*)] 3 mg PO 11/28/17 [Last Taken 11/27/17 21:00] Norgestrel-Ethinyl Estradiol [Qwm-Lpzpixed-87 Tablet] 1 each PO DAILY 11/28/17 [ Last Taken 11/27/17 21:00] RX: Insulin Pump, Patient Own 1 ea MIS AD 11/28/17 [Last Taken 11/28/17] - NPO status NPO Since - Liquids (Date): 11/29/17 NPO Since - Liquids (Time): 11:30 - Smoking Hx Smoking Status: Never smoked - Alcohol Use Alcohol Use: None ANE Labs/Vital Signs - Labs Result Diagrams: 11/29/17 04:17 11/29/17 04:17 - Vital Signs Blood Pressure: 101/73 Heart Rate: 131 Respiratory Rate: 20 O2 Sat (%): 92 Height: 170.18 cm Weight: 95.254 kg ANE Physical Exam - Airway Neck exam: FROM Mallampati Score: Class 1 Mouth exam: normal dental/mouth exam - Pulmonary Pulmonary: no respiratory distress - Cardiovascular Cardiovascular: regular rate and rhythym - ASA Status ASA Status: III ANE Anesthesia Plan Anesthesia Plan: MAC
[2017-11-29] MEDS ORDERED: PROPOFOL 200 MG/20 ML VIAL ONE (16:09)
[2017-11-29] MEDS ORDERED: fentaNYL 100 MCG/2 ML INJ ONE ×2 (16:09→16:15)
--- NOTE | 2017-11-29 16:32 | ECHO ---
[email or web address] [address] [address] Main: [phone] Fax: Transthoracic Echocardiogram Name: JOHN BYRD MR#: [id number] Study Date: 11/29/2017 Study Time: 02:38 PM Date of : 1990 Age: 27 year(s) Height: 170.2 cm (67 in.) Weight: 95.26 kg (210 lb.) BSA: 2.06 m2 Gender: Female Examination: Echo Indication: Port associated with MSSA bacteremia/assess for endocarditis Image Quality: Contrast: Requested by: Titus Kohli BP: 101 mmHg/63 mmHg Heart Rate: Rhythm: Indication: Port associated with MSSA bacteremia/assess for endocarditis Procedure Staff Corporate Driver: Maira Flynn RD Reading Physician: Todd De La Paz MD Requesting Provider: Conclusions: Normal size left ventricle. Normal global systolic LV function. The ejection fraction is estimated to be 65-70 %. No regional wall motion abnormality. Trivial mitral valve regurgitation. Trivial tricuspid valve regurgitation. No obvious vegetations visualized. There are no significant valvular abnormalities. Measurements: Chambers Valvular Assessment AV/MV Valvular Assessment TV/PV Normal Normal Normal Name Value Range Name Value Range Name Value Range Ao Gissell (MM): 3.1 cm (2.2 cm-3.7 AV Vmax: 1.32 m/s (1 m/s-1.7 cm) m/s) IVSd (2D): 0.9 cm (0.6 cm-1.1 AV meanP mmHg ( - ) cm) MV E Vmax: 0.74 m/s ( - ) LVDd (2D): 4.4 cm (3.9 cm-5.3 MV A Vmax: 0.94 m/s ( - ) cm) MV E/A: 0.79 ( - ) LVDs (2D): 3.0 cm (2.1 cm-4 cm) LVPWd (2D): 0.8 cm ( - ) LVEF (MOD4): 68 % (>=55 %) EF Range: 65-70 % Continued Measurements: Chambers Valvular Assessment AV/MV Name Value Name Value Patient: JOHN BYRD Study Date: 11/29/2017 Page 1 of 2 02:38 PM LADs: 3.0 cm MV E' Septal: 0.09 m/s LADs Lon.9 cm MV E/E' Septal: 7.80 LA Area: 18.3 cm2 MV E/E' Lateral: 5.00 Findings: Left Ventricle: Normal size left ventricle. No LV hypertrophy. Normal global systolic LV function. The ejection fraction is estimated to be 65-70 %. No regional wall motion abnormality. Normal diastolic LV function. Right Ventricle: Normal size right ventricle. Left Atrium: The left atrium is normal in size. Right Atrium: The right atrium is normal in size. Mitral Valve: The mitral valve is normal in appearance and function. Trivial mitral valve regurgitation. Aortic Valve: The aortic valve is normal in appearance and function. The aortic valve is tri-leaflet. Tricuspid Valve: The tricuspid valve is normal in appearance and function. Trivial tricuspid valve regurgitation. Pulmonic Valve: The pulmonic valve is normal in appearance and function. Aorta: The aorta is normal. Pericardium: No pericardial effusion. Exam Comments: No obvious vegetations visualized. (No Signature Object) Patient: JOHN BYRD Study Date: 11/29/2017 Page 2 of 2 02:38 PM [id number]
[2017-11-29] MEDS ORDERED: fentaNYL 100 MCG/2 ML INJ IVP PRN (16:38)
[2017-11-29] MEDS ORDERED: NALOXONE HCL 0.4 MG/ML INJ IVP PRN (16:38)
[2017-11-29] MEDS ORDERED: HYDROmorphONE/DILAUDID 1 MG/ML INJ IVP PRN (16:38)
--- NOTE | 2017-11-29 16:41 | ASMTCMCOM ---
CM Note CM Note Notes: Pt admitted for neutropenic fever with bacteremia. Pt to have her port removed. Pt's DC needs unclear. CM to follow. Date Signed: 11/29/2017 04:40 PM Electronically Signed By:Toshia Sommer LCSW
--- NOTE | 2017-11-29 16:41 | POSTOPPROG ---
Post Op Note Date of Operation: 11/29/17 Surgeon: Mari Chowdary Anesthesiologist: loraine Anesthesia: IV Sedation Pre-op Diagnosis: bacteremia Post-op Diagnosis: same Indication: 27 yo with bacteremia Procedure: remove power port Inf/Abcess present in the surg proc area at time of surgery?: Yes Depth: Organ Space EBL: Minimal
--- NOTE | 2017-11-29 16:55 | POSTANESTH ---
Post Anesthetic Evaluation Cardiovascular Status: Normal, Stable Respiratory Status: Normal, Stable Level of Consciousness/Mental Status: Can Participate in Eval Pain Control: Adequate, Prn Tx Ordered Nausea/Vomiting Control: Adequate, Prn Tx Ordered Complications Possibly Related to Anesthesia: None Noted
[2017-11-29] MEDS: CITALOPRAM 20 MG TAB PO SCH (20:44)
[2017-11-29] MEDS: FILGRASTIM-SNDZ 480 MCG/0.8 ML SYR SC SCH (20:44)
[2017-11-29] MEDS: NORGESTREL ETHINYL ESTRADIOL PO SCH (20:45)
[2017-11-29] MEDS: LORazepam 0.5 MG TAB PO PRN (20:55)
[2017-11-29] MEDS ORDERED: NS 500 ML IV ONE (21:24)
[2017-11-29] MEDS: MELATONIN 3 MG TAB PO SCH (23:18)
[2017-11-30] MEDS: PROMETHAZINE HCL 25 MG/ML INJ IVP PRN (00:13)
[2017-11-30] MEDS: HYDROmorphONE/DILAUDID 1 MG/ML INJ IVP PRN ×7 (01:32→21:05)
--- NOTE | 2017-11-30 02:25 | GOP ---
[f rep st] OPERATIVE REPORT DATE OF OPERATION: 11/29/2017 SURGEON: Mari Chowdary MD ANESTHESIA: Monitored anesthesia care with IV sedation. ANESTHESIOLOGIST: Dr. Tolbert. PREOPERATIVE DIAGNOSIS: Bacteremia. POSTOPERATIVE DIAGNOSIS: Bacteremia. PROCEDURE PERFORMED: Removal of PowerPort. FINDINGS: No purulence SPECIMENS: None. ESTIMATED BLOOD LOSS: 5 cc. INDICATIONS: The patient is a 27-year-old woman with bacteremia. Removal of her PowerPort was indicated. DESCRIPTION OF PROCEDURE: Patient was brought into the operating room, placed supine on the table. Monitored anesthesia care with IV sedation was performed. Her right chest was prepped and draped in the usual sterile fashion. I infiltrated the area with 0.5% Marcaine mixed with 1% lidocaine. I made an incision over her previous scar. I dissected down to the level of the port. I excised this. There was no obvious purulent pocket. The wound was closed with 4-0 Monocryl and Allevyn dressing was applied. She was awakened in the operating room, transferred to PACU in stable condition. /[id number]/MODL MTDD
[2017-11-30] MEDS: NAFCILLIN SODIUM 2 GM in D5W 100 ML IV SCH ×6 (02:30→21:13)
--- NOTE | 2017-11-30 02:40 | GCON ---
[f rep st] CONSULTATION DATE OF CONSULTATION: 11/29/2017 REFERRING PHYSICIAN: Titus Kohli MD REASON FOR CONSULTATION: Neutropenic with bacteremia. HISTORY OF PRESENT ILLNESS: The patient is a 27-year-old woman with past medical history significant for rhabdomyosarcoma. She had a right-sided port placement on November 17, 2017. She started with vinc ristine, Adriamycin/doxorubicin. In the last 2 days, she developed pain over her right chest and nec k and developed fevers and chills. Blood culture showed MSSA. Due to the pain at her port site and bacteremia, I was consulted for port removal. PAST MEDICAL HISTORY: Rhabdomyosarcoma, type 1 diabetes, hypothyroidism, retinopathy. PAST SURGICAL HISTORY: Right port placement and cataract surgery. MEDICATIONS: Reviewed. ALLERGIES: Zofran causes headache. SOCIAL HISTORY: She denies tobacco or alcohol use. FAMILY HISTORY: Mom has asthma. REVIEW OF SYSTEMS: Significant for the side effects associated with chemo, fevers, chills, pain by p ort. PHYSICAL EXAM: VITALS: Reviewed with a T-max of 39.8. GENERAL: Obese, pleasant, well-groomed woma n in no acute distress. HEENT: Normocephalic. No gross hearing deficits. Mucous membranes moist. Pupils equal and round. No scleral icterus. LUNGS: Clear to auscultation bilaterally. No increas ed work of breathing. CARDIAC: Tachycardic. EXTREMITIES: No peripheral edema. CHEST: No erythem a by port; it is tender. MUSCULOSKELETAL: Normal nails. NEURO: Grossly intact. PSYCH: Mood and affect normal. RESULTS REVIEWED: I personally reviewed her laboratory data, which shows a white blood cell count le ss than 0.1, platelets 59. Blood cultures with 2 sets positive for MSSA. IMPRESSION AND PLAN: A 27-year-old woman with bacteremia, source likely port. I will take her to [facility] operating room to remove the port. Risks and benefits including, but not limited to, infection, bl eeding, poor intravenous access were discussed. Due to her platelets being low and her being neutrop enic, we will do this in the operating room. /[id number]/MODL
[2017-11-30] MEDS ORDERED: NS 1,000 ML IV ONE (02:48)
[2017-11-30] MEDS: ACETAMINOPHEN 325 MG TAB PO PRN ×4 (04:29→23:41)
[2017-11-30] MEDS: LEVOTHYROXINE 125 MCG TAB PO SCH (04:30)
[2017-11-30] MEDS: NS 1,000 ML IV SCH ×2 (05:58→16:12)
[2017-11-30 06:35] LABS: PLATELET COUNT 20 10^3/uL (150-400)
--- NOTE | 2017-11-30 08:33 | HOSPPROG ---
Hospitalist Progress Note Assessment/Plan: # neutropenic fever/sepsis (low WBC, tachy) - d/t MSSA bacteremia - received neupogen last night - i do not think at this point we need to move her to a higher level of care - cont IVF # MSSA bacteremia - suspect source is recent port placement, now removed - cont abx, taper per ID # recurrent rhabdomyosarcoma s/p recent VAC/IE, received neupogen yesterday # pancytopenia d/t chemo # DM1 - continue home insulin pump - some hyperglycemia Subjective: fever last night; overall feels well this morning Objective: Vital Signs Temp Pulse Resp BP Pulse Ox 37.2 C 108 H 18 92/70 L 92 11/30/17 07:31 11/30/17 07:31 11/30/17 07:31 11/30/17 05:51 11/30/17 07:31 Microbiology 11/28/17 22:28 Respiratory Panel (PCR) - Final Nasal, Sinus - Swab Human Rhinovirus/Enterovirus Laboratory Results 11/30/17 04:11 11/29/17 04:17 11/29/17 11/30/17 12/01/17 05:59 05:59 05:59 Intake Total 5487 3955 Output Total 600 1455 250 Balance 4887 2500 -250 high risk with ongoing fevers - Physical Exam Constitutional: no apparent distress, appears nourished Cardiovascular: no murmur, rub, or gallop, tachycardia Respiratory: no respiratory distress, no rales or rhonchi, clear to auscultation Gastrointestinal: soft, non-tender abdomen, no palpable masses, No guarding, No rebound, No distension Musculoskeletal: other (R port site with slight erythema, significantly less TTP today) ICD10 Worksheet Patient Problems: Problems Problem Status Onset Neutropenic fever Acute
--- NOTE | 2017-11-30 08:43 | SOAPPROG ---
SOAP Progress Note Assessment/Plan: Assessment: POD # 1 s/p port removal Doing well May remove dressing if bothersome Plan: 11/30/17 08:43 Objective: Vital Signs Temp Pulse Resp BP Pulse Ox 37.2 C 108 H 18 92/70 L 92 11/30/17 07:31 11/30/17 07:31 11/30/17 07:31 11/30/17 05:51 11/30/17 07:31 Microbiology 11/28/17 22:28 Respiratory Panel (PCR) - Final Nasal, Sinus - Swab Human Rhinovirus/Enterovirus Laboratory Results 11/30/17 04:11 11/29/17 04:17 11/29/17 11/30/17 12/01/17 05:59 05:59 05:59 Intake Total 5414 9272 Output Total 523 1197 250 Balance 4880 2500 -250 ICD10 Worksheet Patient Problems: Problems Problem Status Onset Neutropenic fever Acute
[2017-11-30] MEDS: LIOTHYRONINE SODIUM 5 MCG TAB PO SCH (09:16)
--- NOTE | 2017-11-30 10:16 | SOAPPROG ---
SOAP Progress Note Assessment/Plan: Assessment: 1. Recurrent rhabdomyosarcoma 2. Febrile neuropenia 3. MSSA Port infection and bacteremia Plan: - continue nafcillin - if remains febrile, will have to consider echo (to look for endocarditis) and empiric antifunal coverage - Zarxio - transfuse for plts<10 30 min spent w/ pt and in coordination of care. 11/30/17 10:15 Subjective: feels tired. much less pain at Port site since it was removed. Objective: exam: tired appearing bandage over Port site - no erythema Lungs CTAB CV RRR no MGR ABd: +BS NT ND Ext: no edema neuro: a+ox3 Vital Signs Temp Pulse Resp BP Pulse Ox 37.2 C 108 H 18 92/70 L 92 11/30/17 07:31 11/30/17 07:31 11/30/17 07:31 11/30/17 05:51 11/30/17 07:31 Microbiology 11/28/17 22:28 Respiratory Panel (PCR) - Final Nasal, Sinus - Swab Human Rhinovirus/Enterovirus Laboratory Results 11/30/17 04:11 11/30/17 09:04 11/29/17 11/30/17 12/01/17 05:59 05:59 05:59 Intake Total 5421 7062 Output Total 713 5624 250 Balance 4886 2500 -250 ICD10 Worksheet Patient Problems: Problems Problem Status Onset Neutropenic fever Acute
[2017-11-30] MEDS: HYDROmorphONE/DILAUDID 2 MG TAB PO PRN (11:54)
[2017-11-30] MEDS: LORazepam 0.5 MG TAB PO PRN ×3 (11:55→21:03)
[2017-11-30] MEDS: FILGRASTIM-SNDZ 480 MCG/0.8 ML SYR SC SCH (14:37)
--- NOTE | 2017-11-30 18:46 | PCMIDPN ---
Assessment/Plan: Assessment/Plan: * Neutropenic fever with MSSA bacteremia secondary to port infection status post port removal: Clinically improved today with persistent profound neutropenia and ongoing intermittent fever. Repeat blood cultures are pending to assess for clearing of bacteremia. Typically will take 3-5 days of antibiotic therapy to achieve clearing. Transthoracic echocardiogram shows normal valvular function without overt vegetation. Continue nafcillin 2 g IV q.4 hours. Follow up blood cultures and white blood cell count over time. * Rhinovirus/enterovirus: Respiratory symptoms resolving. May represent primarily prolonged shedding at this point in time. Continue droplet precautions. 11/30/17 18:42 11/30/17 18:45 Subjective: Patient feels better with decreased right anterior chest and neck pain. Port removed yesterday. Objective: Vital Signs Temp Pulse Resp BP Pulse Ox 36.9 C 115 H 20 106/70 91 L 11/30/17 16:00 11/30/17 16:00 11/30/17 16:00 11/30/17 16:00 11/30/17 16:00 Laboratory Results 11/30/17 04:11 11/30/17 09:04 11/29/17 11/30/17 12/01/17 05:59 05:59 05:59 Intake Total 5487 3955 850 Output Total 600 1455 1700 Balance 4887 2500 -850 Nafcillin # 2 Blood cultures 11/28/2017 MSSA Blood cultures 11/30/2017 pending Respiratory pathogen panel PCR positive for rhinovirus/enterovirus - Physical Exam General Appearance: alert, no apparent distress EENT: No scleral icterus, No thrush, No conjunctival petechiae Respiratory: lungs clear, No respiratory distress Cardiac/Chest: tachycardia, systolic murmur (2/6 left upper sternal border), other (Right upper chest with decreased erythema and tenderness; no palpable fluctuance) Extremities: No inflammation Abdomen: non-tender, No distended Skin: No embolic lesions ICD10 Worksheet Patient Problems: Problems Problem Status Onset Neutropenic fever Acute
[2017-11-30] MEDS ORDERED: diphenhydrAMINE 25 MG CAP PO ONE (20:57)
[2017-11-30] MEDS: CITALOPRAM 20 MG TAB PO SCH (21:02)
[2017-11-30] MEDS: MELATONIN 3 MG TAB PO SCH (21:04)
[2017-11-30] MEDS: NORGESTREL ETHINYL ESTRADIOL PO SCH (21:06)
[2017-11-30] MEDS: diphenhydrAMINE 25 MG CAP PO PRN ×2 (21:10→22:37)
[2017-12-01] MEDS: NAFCILLIN SODIUM 2 GM in D5W 100 ML IV SCH ×6 (01:56→22:40)
[2017-12-01] MEDS: HYDROmorphONE/DILAUDID 1 MG/ML INJ IVP PRN ×6 (02:03→20:27)
[2017-12-01] MEDS: LEVOTHYROXINE 125 MCG TAB PO SCH (05:18)
[2017-12-01 07:07] LABS: PLATELET COUNT 41 10^3/uL (150-400)
[2017-12-01] MEDS: LIOTHYRONINE SODIUM 5 MCG TAB PO SCH (08:27)
[2017-12-01] MEDS: NS 1,000 ML IV SCH (08:27)
[2017-12-01] MEDS: LORazepam 0.5 MG TAB PO PRN ×2 (08:27→14:34)
--- NOTE | 2017-12-01 10:24 | PCMIDPN ---
Assessment/Plan: Assessment/Plan: * Neutropenic fever with MSSA bacteremia secondary to port infection status post port removal: Repeat blood culture show no growth to date. Chest wall symptoms and findings continuing to improve. No further fever last 24 hr. If blood cultures remain negative today, will be able to place PICC line tomorrow. Anticipate changing nafcillin to cefazolin prior to discharge given less associated toxicity (for example neutropenia or AIN) once clearance of bacteremia confirmed. * Rhinovirus/enterovirus: Recurrent respiratory symptoms and hypoxia. Doubt related to ongoing viral infection. Continue droplet precautions * Chest discomfort/hypoxia: Will proceed with CT angiogram to assess for bland or septic pulmonary emboli (can be associated with port infection) versus pneumonia or other potential etiologies associated neutropenia. Clinical findings and plan discussed with patient, mother, Dr. Thompson, and Dr. Oliveros. 12/01/17 10:20 12/01/17 10:25 Subjective: Patient complains of difficulty taking a full breath with associated shortness of breath. Patient slept part of the night sitting up in a chair. Symptoms associated with decreased oxygen saturations. Objective: Vital Signs Temp Pulse Resp BP Pulse Ox 36.6 C 102 H 16 129/74 H 95 12/01/17 08:49 12/01/17 08:49 12/01/17 08:49 12/01/17 08:49 12/01/17 08:49 Laboratory Results 12/01/17 05:15 12/01/17 05:15 11/30/17 12/01/17 12/02/17 05:59 05:59 05:59 Intake Total 3955 1931 200 Output Total 1455 1700 300 Balance 2500 231 -100 Nafcillin # 3 Blood cultures 11/30/17 no growth to date ANC approximately 170 - Physical Exam General Appearance: alert, no apparent distress, non-toxic EENT: No scleral icterus, No conjunctival petechiae Respiratory: crackles (Bibasilar) Cardiac/Chest: tachycardia, other (Right upper chest with resolving erythema and marked decrease in tenderness; no fluctuance) Extremities: No inflammation Abdomen: non-tender, No distended Skin: No embolic lesions ICD10 Worksheet Patient Problems: Problems Problem Status Onset Neutropenic fever Acute
--- NOTE | 2017-12-01 10:39 | SOAPPROG ---
SOAP Progress Note Assessment/Plan: E&M rhabdomyosarcoma * Recurrent rhabdomyosarcoma: day 11, cycle 1 vincristine, doxorubicin and cyclophosphamide. * Febrile neuropenia: counts starting to recover and fever has resolved. Continue Zarxio * Thrombocytopenia and anemia: due to chemo; no need for transfusion today * MSSA Port infection and bacteremia: ID managing. Will need PICC and outpatient abx for 4 weeks * Dyspnea and hypoxia: d/w Dr. Kohli who is concerned about septic emboli. Agree with CT angio Subjective: Feeling dyspnic but no chest pain. Overall feeling better than admission. Objective: Vital Signs Temp Pulse Resp BP Pulse Ox 36.6 C 102 H 16 129/74 H 95 12/01/17 08:49 12/01/17 08:49 12/01/17 08:49 12/01/17 08:49 12/01/17 08:49 Laboratory Results 12/01/17 05:15 12/01/17 05:15 11/30/17 12/01/17 12/02/17 05:59 05:59 05:59 Intake Total 3955 1931 200 Output Total 1455 1700 300 Balance 2500 231 -100 Laboratory Tests 11/29/17 11/30/17 12/01/17 04:17 04:11 05:15 WBC < 0.10 L* < 0.10 L* 0.39 L* Hgb 10.2 L 15.5 10.2 L Plt Count 59 L 20 L* 41 L Absolute Seg Neuts 0.00 L 0.00 L 0.17 L Absolute Band Neuts 0.10 Physical Exam - Physical Exam General Appearance: no apparent distress Respiratory: crackles (bilateral bases) Cardiac/Chest: tachycardia Abdomen: non-tender, soft Skin: other (wound from port removal healing well) ICD10 Worksheet Patient Problems: Problems Problem Status Onset Neutropenic fever Acute
[2017-12-01] MEDS ORDERED: IOPAMIDOL (ISOVUE 370) 100 ML BTL IV ONE (10:45)
[2017-12-01] MEDS: PROMETHAZINE HCL 25 MG/ML INJ IVP PRN (10:50)
--- NOTE | 2017-12-01 11:24 | HOSPPROG ---
Hospitalist Progress Note Assessment/Plan: # neutropenic fever/sepsis (low WBC, tachy) - d/t MSSA bacteremia - received neupogen last night - cont IVF, lower rate # hypoxia - suspect atelectasis or pulm edema, although PE and septic emboli are possible - agree with CTA; anticoagulation would be difficult - cont IS # MSSA bacteremia - suspect source is recent port placement, now removed - cont nafcillin # recurrent rhabdomyosarcoma s/p recent VAC/IE, received neupogen here # pancytopenia d/t chemo - counts slowly improving # DM1 - continue home insulin pump - glucs labile Subjective: some pleuritic chest pain; hypoxic today Objective: Vital Signs Temp Pulse Resp BP Pulse Ox 36.6 C 102 H 16 129/74 H 95 12/01/17 08:49 12/01/17 08:49 12/01/17 08:49 12/01/17 08:49 12/01/17 08:49 Laboratory Results 12/01/17 05:15 12/01/17 05:15 11/30/17 12/01/17 12/02/17 05:59 05:59 05:59 Intake Total 3955 1931 200 Output Total 1455 1700 300 Balance 2500 231 -100 high risk with neutropenic fever - Physical Exam Constitutional: no apparent distress Cardiovascular: regular rate and rhythym, no murmur, rub, or gallop Respiratory: no respiratory distress, reduced air movement (bilat bases), inspiratory crackles (bilat bases) Gastrointestinal: normoactive bowel sounds, soft, non-tender abdomen, no palpable masses ICD10 Worksheet Patient Problems: Problems Problem Status Onset Neutropenic fever Acute
[2017-12-01] MEDS ORDERED: NS W/ 20 KCl/L 1,000 ML IV SCH (11:30)
[2017-12-01] MEDS: FILGRASTIM-SNDZ 480 MCG/0.8 ML SYR SC SCH (14:25)
[2017-12-01] MEDS: ACETAMINOPHEN 325 MG TAB PO PRN ×2 (14:34→22:44)
[2017-12-01] MEDS: CITALOPRAM 20 MG TAB PO SCH (20:28)
[2017-12-01] MEDS: NORGESTREL ETHINYL ESTRADIOL PO SCH (20:29)
[2017-12-01] MEDS: MELATONIN 3 MG TAB PO SCH (22:48)
[2017-12-02] MEDS: HYDROmorphONE/DILAUDID 1 MG/ML INJ IVP PRN ×6 (00:31→23:07)
[2017-12-02] MEDS: NAFCILLIN SODIUM 2 GM in D5W 100 ML IV SCH ×6 (02:27→21:56)
[2017-12-02] MEDS: LEVOTHYROXINE 125 MCG TAB PO SCH (06:00)
[2017-12-02] MEDS: HYDROmorphONE/DILAUDID 2 MG TAB PO PRN (06:09)
[2017-12-02 07:07] LABS: PLATELET COUNT 41 10^3/uL (150-400)
[2017-12-02] MEDS: LIOTHYRONINE SODIUM 5 MCG TAB PO SCH (07:55)
[2017-12-02] MEDS: LORazepam 0.5 MG TAB PO PRN (09:00)
--- NOTE | 2017-12-02 10:03 | HOSPPROG ---
Hospitalist Progress Note Assessment/Plan: # neutropenic fever/sepsis (low WBC, tachy) - d/t MSSA bacteremia - afebrile x 24 hours - counts recovering # MSSA bacteremia - suspect source is recent port placement, now removed - cont nafcillin - PICC soon per ID # hypoxia - likely d/t pulm edema and atelectasis - cont IS - stop IVF - consider lasix tomorrow if taking enough PO # recurrent rhabdomyosarcoma s/p recent VAC/IE, received neupogen here # pancytopenia d/t chemo - improving # DM1 - continue home insulin pump - glucs labile Subjective: feels stronger today; sitting in the chair Objective: Vital Signs Temp Pulse Resp BP Pulse Ox 36.8 C 103 H 18 133/86 H 92 12/02/17 07:39 12/02/17 07:39 12/02/17 07:39 12/02/17 07:39 12/02/17 07:39 Laboratory Results 12/02/17 04:26 12/01/17 05:15 12/01/17 12/02/17 12/03/17 05:59 05:59 05:59 Intake Total 1931 2200 617 Output Total 1700 3100 Balance 231 -900 617 high risk with bacteremia on chemo - Physical Exam Constitutional: other (fatigued) Cardiovascular: regular rate and rhythym, no murmur, rub, or gallop Respiratory: no respiratory distress, other (diminished bilt basilar BS with rales) Gastrointestinal: soft, non-tender abdomen, no palpable masses, No guarding, No rebound, No other ICD10 Worksheet Patient Problems: Problems Problem Status Onset Neutropenic fever Acute
[2017-12-02] MEDS: OXYCODONE/APAP 5/325 TAB PO PRN ×2 (11:49→15:47)
--- NOTE | 2017-12-02 12:23 | SOAPPROG ---
SOAP Progress Note Assessment/Plan: E&M rhabdomyosarcoma * Recurrent rhabdomyosarcoma: day 12, cycle 1 vincristine, doxorubicin and cyclophosphamide. * Febrile neuropenia: counts starting to recover and fever has resolved. Continue Zarxio daily * Thrombocytopenia and anemia: due to chemo; no need for transfusion today * MSSA Port infection and bacteremia: ID managing. Will need PICC and outpatient abx for 4 weeks * Dyspnea and hypoxia: No PE. Probably due to enteroviral infection. Subjective: Feeling better although still with dyspnea and cough. Appetite decreased. Objective: Vital Signs Temp Pulse Resp BP Pulse Ox 36.3 C 105 H 18 137/87 H 95 12/02/17 12:00 12/02/17 12:00 12/02/17 12:00 12/02/17 12:00 12/02/17 12:00 Laboratory Results 12/02/17 04:26 12/01/17 12/02/17 12/03/17 05:59 05:59 05:59 Intake Total 1931 2200 617 Output Total 1700 3100 Balance 231 -900 617 Laboratory Tests 11/30/17 12/01/17 12/02/17 04:11 05:15 04:26 WBC < 0.10 L* 0.39 L* 1.19 L Hgb 15.5 10.2 L 8.6 L Plt Count 20 L* 41 L 41 L Absolute Neuts (auto) 0.75 L Absolute Seg Neuts 0.[address] Chest Angiogram Indication: Chest pain, hypoxia; port infection; assess for septic pulmonary emboli, PE, or pneumonia. Impression: 1. No evidence of pulmonary thromboembolic disease. 2. No evidence of acute septic pulmonary embolic disease. 3. Mild interstitial edema and bibasilar pneumonia. 4. Small bilateral layering pleural effusions. 5. Two hypervascular lesions in the left lobe of the liver may represent focal nodular hyperplasia versus adenomas. Recommend MRI of the abdomen, without and with IV contrast, utilizing Eovist ( hepatobiliary specific contrast) to optimally characterize. Comment: The results regarding the chest were discussed with Dr. Titus Kohli. Dictated By: Daniel Storm MD Physical Exam - Physical Exam General Appearance: no apparent distress EENT: pharynx normal Respiratory: rhonchi (improved) Cardiac/Chest: tachycardia Abdomen: non-tender, soft ICD10 Worksheet Patient Problems: Problems Problem Status Onset Neutropenic fever Acute
[2017-12-02] MEDS ORDERED: ALTEPLASE 2 MG VIAL IVP PRN (15:27)
--- NOTE | 2017-12-02 15:29 | PCMIDPN ---
Assessment/Plan: # MSSA bacteremia and port infection s/p port removal, blood cultures are negative since 11/30. no residual chest wall cellulitis. No fever since 11/30. --okay to place a PICC line today --patient will need 2-4 weeks of anti-Staph coverage. Weighing the side of shorter course is that it is source removal and rapid clearance of blood cx, on the side of longer course, her immune compromised state. --will discharge on cefazolin due to less toxicity over time --check LFTs tomorrow # neutropenic fever due to MSSA bacteremia: ANC 750, fever resolved # hypoxic, tachycardia: Suspect due to viral pneumonia. Hopeful this will improve quickly with recovery of ANC. Hospitalist service is also considering some mild volume overload Microbiology 11/28 blood cultures (2/2) MSSA 11/30 blood cultures (2) NGTD Medication Nafcillin 2 g IV Q 4, # 3 (Cr nl) Subjective: Patient is feeling better. Does describe some mild bone pain and shortness of breath. Objective: Vital Signs Temp Pulse Resp BP Pulse Ox 36.3 C 105 H 18 137/87 H 95 12/02/17 12:00 12/02/17 12:00 12/02/17 12:00 12/02/17 12:00 12/02/17 12:00 Laboratory Results 12/02/17 04:26 12/02/17 11:42 12/01/17 12/02/17 12/03/17 05:59 05:59 05:59 Intake Total 1931 2200 617 Output Total 1700 3100 Balance 231 -900 617 - Physical Exam General Appearance: alert, no apparent distress EENT: pale conjunctiva, other (Good dentition), No thrush Respiratory: other (Bibasilar crackles), No accessory muscle use Cardiac/Chest: tachycardia, other (Right chest wall: Port site incision is healing well, no residual cellulitis) Extremities: No pedal edema Abdomen: non-tender, soft Pelvic Exam: No hdez Skin: pallor, No rash Neuro/Psych: alert, normal mood/affect, oriented x 3 - Time Spent With Patient Time Spent with Patient: greater than 35 minutes (Care coordinated with Dr. Héctor Oliveros) Time Spent with Patient: Greater than 35 minutes spent on this patients care, greater than 50% of time spent counseling, educating, and coordinating care regarding the above mentioned plan. ICD10 Worksheet Patient Problems: Problems Problem Status Onset Neutropenic fever Acute
[2017-12-02] MEDS: FILGRASTIM-SNDZ 480 MCG/0.8 ML SYR SC SCH (15:31)
--- NOTE | 2017-12-02 16:03 | ASMTCMCOM ---
CM Note CM Note Notes: Pt remains in need of medical treatment. She has a mother who lives in [facility] # [phone]. CM will follow. D/C Plan: TBD Date Signed: 12/02/2017 04:02 PM Electronically Signed By:Cary Rowley
[2017-12-02] MEDS: CITALOPRAM 20 MG TAB PO SCH (21:57)
[2017-12-02] MEDS: MELATONIN 3 MG TAB PO SCH (21:58)
[2017-12-02] MEDS: NORGESTREL ETHINYL ESTRADIOL PO SCH (21:58)
[2017-12-02] MEDS: ACETAMINOPHEN 325 MG TAB PO PRN (23:45)
[2017-12-03] MEDS: HYDROmorphONE/DILAUDID 1 MG/ML INJ IVP PRN ×5 (01:36→12:05)
[2017-12-03] MEDS: NAFCILLIN SODIUM 2 GM in D5W 100 ML IV SCH ×4 (01:41→15:00)
[2017-12-03 06:14] LABS: PLATELET COUNT 65 10^3/uL (150-400)
[2017-12-03] MEDS: LORazepam 0.5 MG TAB PO PRN (06:18)
[2017-12-03] MEDS: LEVOTHYROXINE 125 MCG TAB PO SCH (06:18)
[2017-12-03] MEDS: LIOTHYRONINE SODIUM 5 MCG TAB PO SCH (08:27)
--- NOTE | 2017-12-03 09:55 | HOSPPROG ---
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 Evaluation has revealed a MSSA bacteremia likely secondary to a port infection as well as a viral pneumonitis. Main issue currently is pain control. # neutropenic fever/sepsis (low WBC, tachy) - d/t MSSA bacteremia * Fever resolved and no longer neutropenic * Will need 4 weeks of antibiotics per ID. * PICC line today # acute hypoxic respiratory failure likely due to viral pneumonitis and mild fluid overload. Patient has normal echocardiogram and slight improvement oxygen today * Room air challenge * IS * Home O2 if needed. Patient's admits to having oxygen already at home # pain: Patient complains of severe body aches and bone aches likely due to the Neulasta * Try to wean off IV Dilaudid * Add p.o. Oxycodone * Likely can DC when pain controlled on oral medications * DC G-CSF * Add IV Toradol since platelet count is improved, discussed with Dr. Chinchilla # recurrent rhabdomyosarcoma s/p recent VAC/IE, received neupogen here # pancytopenia d/t chemo # DM1 - continue home insulin pump - glucs labile Subjective: Patient new to me and chart reviewed complains of all body pain and bone pain is quite severe. She uses IV Dilaudid currently and pain issue is pain Objective: Vital Signs Temp Pulse Resp BP Pulse Ox 36.5 C 106 H 17 127/87 H 100 12/03/17 08:20 12/03/17 08:20 12/03/17 08:20 12/03/17 08:20 12/03/17 08:20 Laboratory Results 12/03/17 05:36 12/03/17 05:17 12/02/17 12/03/17 12/04/17 05:59 05:59 05:59 Intake Total 2200 2117 Output Total 3100 1700 Balance -900 417 - Physical Exam Constitutional: uncomfortable Eyes: PERRL Ears, Nose, Mouth, Throat: moist mucous membranes, hearing normal Cardiovascular: regular rate and rhythym Respiratory: no respiratory distress, clear to auscultation Gastrointestinal: soft, non-tender abdomen Genitourinary: no bladder fullness Skin: warm Neurologic: AAOx3 Psychiatric: interacting appropriately ICD10 Worksheet Patient Problems: Problems Problem Status Onset Neutropenic fever Acute
[2017-12-03] MEDS: KETOROLAC 15 MG/1 ML SDV IVP SCH ×3 (12:10→23:48)
[2017-12-03] MEDS: PANTOPRAZOLE SODIUM 40 MG TAB PO SCH (14:27)
[2017-12-03] MEDS: oxyCODONE IR 5 MG TAB PO PRN ×3 (14:31→22:33)
--- NOTE | 2017-12-03 15:25 | SOAPPROG ---
SOAP Progress Note Assessment/Plan: Assessment: E&M rhabdomyosarcoma * Recurrent rhabdomyosarcoma: day 13, cycle 1 vincristine, doxorubicin and cyclophosphamide. * Febrile neuropenia: counts are recovering and fever has resolved. She is no longer neutropenic. Zarxio discontinued. * Thrombocytopenia and anemia: due to chemo; no need for transfusion today * MSSA Port infection and bacteremia: ID managing. PICC placed today * Dyspnea and hypoxia: No PE. Probably due to enteroviral infection. * Pain - total body. Related to marrow cavity expansion due to Zarxio. This will likely respond better to NSAIDs than narcotics. Agree with Toradol. I would try to minimize IV dilaudid since this is very short acting and is more likely to cause tachyphylaxis. The pain associated with Zarxio usually improves in 24-48 hours. Plan: - Toradol - D/C Zarxio - monitor counts Subjective: C/O total body pain starting after Zarxio. Also has nausea. Objective: Vital Signs Temp Pulse Resp BP Pulse Ox 36.5 C 106 H 17 127/87 H 100 12/03/17 08:20 12/03/17 08:20 12/03/17 08:20 12/03/17 08:20 12/03/17 08:20 Laboratory Results 12/03/17 05:36 12/03/17 05:17 12/01/17 12/02/17 12/03/17 23:59 23:59 23:59 Intake Total 9941 1767 850 Output Total 2100 1900 800 Balance 681 -133 50 Physical Exam - Physical Exam General Appearance: moderate distress Skin: pallor Neuro/Psych: depressed affect ICD10 Worksheet Patient Problems: Problems Problem Status Onset Neutropenic fever Acute
--- NOTE | 2017-12-03 15:31 | PCMIDPN ---
Assessment/Plan: # MSSA bacteremia and port infection s/p port removal, blood cultures are negative since 11/30. no residual chest wall cellulitis. No fever since 11/30. Creatinine and LFTs are normal today --PICC line --change to ancef today for plans for discharge the outpatient. Ancef 6 g IV continuous infusion as an outpatient, 12/14/2017 is stop date # neutropenic fever due to MSSA bacteremia: ANC greater than 2000, no fever # enterovirus, possible mild pneumonia: Droplet precaution. CT scan on 2017 showed no pulmonary emboli Microbiology 11/28 blood cultures (2/2) MSSA 11/30 blood cultures (2) NGTD Medication Nafcillin 2 g IV Q 4, # 4 (Cr nl) Subjective: Patient was weaned off oxygen today. Still a significant amount of bone pain occurring. Worried about recurrent infection in her PICC line Objective: Vital Signs Temp Pulse Resp BP Pulse Ox 36.5 C 106 H 17 127/87 H 100 12/03/17 08:20 12/03/17 08:20 12/03/17 08:20 12/03/17 08:20 12/03/17 08:20 Laboratory Results 12/03/17 05:36 12/03/17 05:17 12/02/17 12/03/17 12/04/17 05:59 05:59 05:59 Intake Total 2200 2117 Output Total 3100 1700 Balance -900 417 - Physical Exam General Appearance: alert, no apparent distress EENT: pale conjunctiva, No thrush Respiratory: No accessory muscle use, No wheezing Cardiac/Chest: tachycardia, other (Right chest wall incision healing well. [place] discoloration of the area most consistent with skin irritation as opposed to cellulitis) Abdomen: non-tender, soft Skin: pallor Neuro/Psych: alert, oriented x 3, depressed affect - Line/s RUE PICC Lines: No drainage, No erythema - Time Spent With Patient Time Spent with Patient: greater than 35 minutes (Care was coordinated with Oncology. Reviewed care plan with patient and her mother) Time Spent with Patient: Greater than 35 minutes spent on this patients care, greater than 50% of time spent counseling, educating, and coordinating care regarding the above mentioned plan. ICD10 Worksheet Patient Problems: Problems Problem Status Onset Neutropenic fever Acute
[2017-12-03] MEDS: ACETAMINOPHEN 325 MG TAB PO PRN (16:49)
[2017-12-03] MEDS: PROMETHAZINE HCL 25 MG/ML INJ IVP PRN ×2 (17:15→22:47)
[2017-12-03] MEDS: CITALOPRAM 20 MG TAB PO SCH (21:41)
[2017-12-03] MEDS: ceFAZolin 2 GM/DEXTROSE 100 ML IV SCH (21:42)
[2017-12-03] MEDS: NORGESTREL ETHINYL ESTRADIOL PO SCH (21:42)
[2017-12-03] MEDS: MELATONIN 3 MG TAB PO SCH (21:42)
[2017-12-04] MEDS ORDERED: ACETAMINOPHEN 650 MG SUPP PR PRN (00:14)
[2017-12-04] MEDS: LORazepam 0.5 MG TAB PO PRN ×3 (00:31→17:58)
[2017-12-04] MEDS: KETOROLAC 15 MG/1 ML SDV IVP SCH ×2 (06:15→13:06)
[2017-12-04] MEDS: LEVOTHYROXINE 125 MCG TAB PO SCH (06:16)
[2017-12-04] MEDS: ceFAZolin 2 GM/DEXTROSE 100 ML IV SCH ×3 (06:17→21:57)
--- NOTE | 2017-12-04 07:25 | SOAPPROG ---
SOAP Progress Note Assessment/Plan: Assessment: s/p port removal Doing well Some purulent drainage from neck incision Will follow Chest incision cdi Plan: 11/30/17 08:43 12/04/17 07:24 Objective: Vital Signs Temp Pulse Resp BP Pulse Ox 37.3 C 97 14 136/83 H 96 12/04/17 06:18 12/04/17 03:25 12/04/17 03:25 12/04/17 03:25 12/04/17 03:25 Laboratory Results 12/03/17 05:17 12/03/17 12/04/17 12/05/17 05:59 05:59 05:59 Intake Total 2117 1600 Output Total 1700 1000 Balance 417 600 ICD10 Worksheet Patient Problems: Problems Problem Status Onset Neutropenic fever Acute
[2017-12-04 08:01] LABS: PLATELET COUNT 126 10^3/uL (150-400)
[2017-12-04] MEDS: LIOTHYRONINE SODIUM 5 MCG TAB PO SCH (08:52)
[2017-12-04] MEDS: PANTOPRAZOLE SODIUM 40 MG TAB PO SCH (08:52)
[2017-12-04] MEDS: CALCIUM CARBONATE 500 MG CHEWABLE TAB PO PRN ×2 (10:23→15:38)
[2017-12-04] MEDS: OXYCODONE/APAP 5/325 TAB PO PRN ×4 (10:23→21:56)
--- NOTE | 2017-12-04 10:55 | ASMTCMCOM ---
CM Note CM Note Notes: CM spoke with Cyndee with [facility], RN care not available today, she shared if discharged this evening after evening dose they could start tomorrow morning though ensuring supplies are delivered today would be necessary. If patient discharged tomorrow, [facility] is available to start. CM to follow. Discharge Plan: Home with [facility] Date Signed: 12/04/2017 10:54 AM Electronically Signed By:Lilo Martinez
--- NOTE | 2017-12-04 12:33 | SOAPPROG ---
SOAP Progress Note Assessment/Plan: Assessment: s/p port removal Doing well No purulent drainage from neck incision Chest incision cdi I will sign off, please call me if you have any additional questions or concerns. Plan: 11/30/17 08:43 12/04/17 07:24 12/04/17 12:31 Objective: Vital Signs Temp Pulse Resp BP Pulse Ox 36.8 C 119 H 19 128/84 H 93 12/04/17 11:42 12/04/17 11:42 12/04/17 11:42 12/04/17 11:42 12/04/17 11:42 Laboratory Results 12/04/17 06:15 12/03/17 05:17 12/03/17 12/04/17 12/05/17 05:59 05:59 05:59 Intake Total 2117 1600 Output Total 1700 1000 Balance 417 600 ICD10 Worksheet Patient Problems: Problems Problem Status Onset Neutropenic fever Acute
--- NOTE | 2017-12-04 12:46 | HOSPPROG ---
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 Evaluation has revealed a MSSA bacteremia likely secondary to a port infection as well as a viral pneumonitis. The pain is better today however she did have a fever last night. No obvious source noted today. Cultures drawn and are pending # fever, patient not neutropenic no obvious source noted. Blood cultures drawn last night. She is draining a slight amount of pus from her previous line on her right anterior chest wall she has little bit of tenderness but no significant erythema. * Follow up on cultures * Consider ultrasound chest wall if she continues to drain and have fevers overnight * No urinary symptoms * Cough is unchanged likely viral, will consider recheck CXR 2/2 fever. # neutropenic fever/sepsis (low WBC, tachy) - d/t MSSA bacteremia * Will need 4 weeks of antibiotics per ID. * PICC line placed yesterday, site looks good # acute hypoxic respiratory failure likely due to viral pneumonitis and mild fluid overload. Patient has normal echocardiogram and slight improvement oxygen today * Room air challenge * IS * Home O2 if needed. Patient's admits to having oxygen already at home # pain: Patient complains of severe body aches and bone aches likely due to the Neulasta much improved today * Try to wean off IV Dilaudid * Add p.o. Oxycodone * Likely can DC when pain controlled on oral medications * DC G-CSF * Add IV Toradol since platelet count is improved, discussed with Dr. Chinchilla # recurrent rhabdomyosarcoma s/p recent VAC/IE, received neupogen here # pancytopenia d/t chemo # DM1 - continue home insulin pump - glucs labile Subjective: Pain is much improved today per patient. However she did have a fever last night. She denies any significant cough or urinary symptoms. Objective: Vital Signs Temp Pulse Resp BP Pulse Ox 36.8 C 119 H 19 128/84 H 93 12/04/17 11:42 12/04/17 11:42 12/04/17 11:42 12/04/17 11:42 12/04/17 11:42 Laboratory Results 12/04/17 06:15 12/03/17 05:17 12/03/17 12/04/17 12/05/17 05:59 05:59 05:59 Intake Total 6757 1600 Output Total 1700 1000 Balance 417 600 - Physical Exam Constitutional: no apparent distress Eyes: PERRL Ears, Nose, Mouth, Throat: moist mucous membranes Cardiovascular: regular rate and rhythym Respiratory: no respiratory distress, clear to auscultation Gastrointestinal: normoactive bowel sounds, soft, non-tender abdomen Skin: warm, other (Right anterior chest wall with a small amount of pus draining from her previous line site.) Musculoskeletal: No muscular tenderness Neurologic: AAOx3 Psychiatric: interacting appropriately ICD10 Worksheet Patient Problems: Problems Problem Status Onset Neutropenic fever Acute
--- NOTE | 2017-12-04 13:10 | SOAPPROG ---
SOAP Progress Note Assessment/Plan: Assessment: E&M rhabdomyosarcoma * Recurrent rhabdomyosarcoma: day 14, cycle 1 vincristine, doxorubicin and cyclophosphamide. * Febrile neuropenia: counts are recovering and fever has resolved. She is no longer neutropenic. Zarxio discontinued. * Thrombocytopenia and anemia: both are improving. No transfusions today * * MSSA Port infection and bacteremia: ID managing. PICC placed today * Dyspnea and hypoxia: No PE. Probably due to enteroviral infection. * Pain - markedly better today. Her port site is quite indurated. Dr. Spears was able to express some purulent material. I suspect that now that her ANC has improved, she will develop an abscess that will require drainage. Plan: - D/C Toradol - Port site management per Dr. Chowdary - monitor counts - hopefully will be able to go home in 1-2 days Subjective: Feels much better. Pain markedly improved. Objective: Vital Signs Temp Pulse Resp BP Pulse Ox 36.8 C 119 H 19 128/84 H 93 12/04/17 11:42 12/04/17 11:42 12/04/17 11:42 12/04/17 11:42 12/04/17 11:42 Laboratory Results 12/04/17 06:15 12/03/17 05:17 12/02/17 12/03/17 12/04/17 23:59 23:59 23:59 Intake Total 1767 1950 500 Output Total 1900 1600 200 Balance -133 350 300 Physical Exam - Physical Exam General Appearance: alert, mild distress Skin: other (induration at port site. still red.) Neuro/Psych: alert, normal mood/affect, oriented x 3 ICD10 Worksheet Patient Problems: Problems Problem Status Onset Neutropenic fever Acute
[2017-12-04] MEDS: oxyCODONE IR 5 MG TAB PO PRN (16:16)
--- NOTE | 2017-12-04 16:39 | PCMIDPN ---
Assessment/Plan: # MSSA bacteremia and port infection s/p port removal, blood cultures are negative since 11/30. Focal area of erythema evolve immediately above chest wall incision with purulent drainage through tract site --Dr. Mari Chowdary to re-evaluate site to try to open up the area --plan total of 2 weeks Ancef 6 g IV continuous infusion as an outpatient, following complete drainage of port site and/or negative blood culture, may extend stop date a bit if surgery needs to open up wound bit more # neutropenia has resolved but patient with fever overnight. Clinically patient is much improved today, much more active no new symptoms. Query if fever due to neutrophil recovery and response to port site infection and possible need for a bit more drainage --repeated blood cultures last night # enterovirus, possible mild pneumonia: Droplet precaution. Off O2, mild productive cough persists Microbiology 11/28 blood cultures (2/2) MSSA 11/30 blood cultures (2) NGTD 12/03 blood culture (2) pending Medication, antibiotics, #5 Cefazolin 2 g IV Q 8, # 1 Subjective: Patient reports feeling a lot better today. Some mild discomfort at the ports and notes a small amount purulent drainage Objective: Vital Signs Temp Pulse Resp BP Pulse Ox 36.6 C 101 H 17 129/65 H 95 12/04/17 15:19 12/04/17 15:19 12/04/17 15:19 12/04/17 15:19 12/04/17 15:19 Laboratory Results 12/04/17 06:15 12/03/17 05:17 12/03/17 12/04/17 12/05/17 05:59 05:59 05:59 Intake Total 2117 1600 Output Total 1700 1000 Balance 417 600 - Physical Exam General Appearance: alert, no apparent distress, obese, other (Appears much more vigorous today) Respiratory: lungs clear, No accessory muscle use Cardiac/Chest: regular rate, rhythm (Borderline tachycardia), other (Silver dollar size area of focal erythema above port site incision, mild tenderness and fluctuance, when press on this area purulence comes out hole associated with prior track site) Extremities: No pedal edema Abdomen: non-tender, soft Skin: pallor, No rash Neuro/Psych: alert, normal mood/affect, oriented x 3 - Line/s RUE PICC Lines: No drainage, No erythema - Time Spent With Patient Time Spent with Patient: greater than 35 minutes (Care coordinated with Dr. Mari Chowdary) Time Spent with Patient: Greater than 35 minutes spent on this patients care, greater than 50% of time spent counseling, educating, and coordinating care regarding the above mentioned plan. ICD10 Worksheet Patient Problems: Problems Problem Status Onset Neutropenic fever Acute
--- NOTE | 2017-12-04 19:35 | GPN ---
[f rep st] PROCEDURE NOTE DATE OF PROCEDURE: 12/03/2017 ANESTHESIA: Lidocaine. PREPROCEDURE DIAGNOSIS: Chest wall abscess. POSTPROCEDURE DIAGNOSIS: Chest wall abscess. PROCEDURE PERFORMED: Incision and drainage. SPECIMENS: None. ESTIMATED BLOOD LOSS: 3 cc. INDICATIONS: The patient is a 27-year-old who had an infected port. She had a fluctuant area on her chest. When it was pressed on, purulent material came out of the insertion site. DESCRIPTION OF PROCEDURE: Patient was verbally consented. I prepped her chest with Betadine. I inj ected it with 2 cc of 1% lidocaine I made a cruciate incision. I continued to press on the chest wal l until there was no additional pus removed from the neck incision. I irrigated it with lidocaine. Hemostasis achieved. A dressing was applied. /[id number]/MODL
[2017-12-04] MEDS: MELATONIN 3 MG TAB PO SCH (21:56)
[2017-12-04] MEDS: CITALOPRAM 20 MG TAB PO SCH (21:56)
[2017-12-04] MEDS: NORGESTREL ETHINYL ESTRADIOL PO SCH (21:57)
[2017-12-05] MEDS: OXYCODONE/APAP 5/325 TAB PO PRN ×3 (04:23→13:46)
[2017-12-05] MEDS: LEVOTHYROXINE 125 MCG TAB PO SCH (05:13)
[2017-12-05] MEDS: ceFAZolin 2 GM/DEXTROSE 100 ML IV SCH ×2 (05:13→13:38)
[2017-12-05 06:39] LABS: PLATELET COUNT 180 10^3/uL (150-400)
[2017-12-05] MEDS: LIOTHYRONINE SODIUM 5 MCG TAB PO SCH (09:12)
[2017-12-05] MEDS: PANTOPRAZOLE SODIUM 40 MG TAB PO SCH (09:14)
--- NOTE | 2017-12-05 09:41 | HOSPPROG ---
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 Evaluation has revealed a MSSA bacteremia likely secondary to a port infection as well as a viral pneumonitis. The pain is better today. Fevers probably from chest wall abscess s/p I&D last night. # fever, patient not neutropenic no obvious source noted. Blood cultures drawn last night. She is draining a slight amount of pus from her previous line on her right anterior chest wall she has little bit of tenderness but no significant erythema. * Follow up on cultures * Consider ultrasound chest wall if she continues to drain and have fevers overnight * No urinary symptoms . # neutropenic fever/sepsis (low WBC, tachy) - d/t MSSA bacteremia. No longer neutropenic. * Will need 4 weeks of antibiotics per ID. * PICC line placed yesterday, site looks good # acute hypoxic respiratory failure likely due to viral pneumonitis and mild fluid overload. Patient has normal echocardiogram and slight improvement oxygen today * Room air challenge * IS * Home O2 if needed. Patient's admits to having oxygen already at home # pain: Patient complains of severe body aches and bone aches likely due to the Neulasta much improved today * Needing occasional percocet, primarily for pain at abscess site. # recurrent rhabdomyosarcoma s/p recent VAC/IE, received neupogen here # pancytopenia d/t chemo, resolving # DM1 - continue home insulin pump - glucs labile Subjective: feels better, wants to go home. minimal cough. line site sore Objective: Vital Signs Temp Pulse Resp BP Pulse Ox 37.2 C 88 14 138/84 H 93 12/05/17 07:22 12/05/17 07:22 12/05/17 07:22 12/05/17 07:22 12/05/17 07:22 Microbiology 11/30/17 04:25 Blood Culture - Final Blood 11/30/17 04:11 Blood Culture - Final Blood 12/03/17 18:30 Blood Panel (PCR) - Final Blood No Organism Detected Laboratory Results 12/05/17 05:15 12/03/17 05:17 12/04/17 12/05/17 12/06/17 05:59 05:59 05:59 Intake Total 1600 750 Output Total 1000 Balance 600 750 - Physical Exam Constitutional: obese, uncomfortable Eyes: PERRL Ears, Nose, Mouth, Throat: moist mucous membranes Cardiovascular: regular rate and rhythym Respiratory: no respiratory distress, clear to auscultation Gastrointestinal: normoactive bowel sounds, soft, non-tender abdomen Skin: other (bruising over previous port, 2 openings where I&D done, clean) Neurologic: AAOx3 Psychiatric: interacting appropriately ICD10 Worksheet Patient Problems: Problems Problem Status Onset Neutropenic fever Acute
--- NOTE | 2017-12-05 10:02 | SOAPPROG ---
SOAP Progress Note Assessment/Plan: Assessment: 27 y/o F with rhabdomyosarcoma s/p port removal S: Port site chemicals distiller, but improving. O: Alert No increased WOB Neck: Port site appears clean, mild swelling remains, but there is no erythema or induration. Site was "milked" and serosanguinous drainage was expressed out of superior most incision. Plan: Will continue to follow. 12/05/17 09:59 Objective: Vital Signs Temp Pulse Resp BP Pulse Ox 37.2 C 88 14 138/84 H 93 12/05/17 07:22 12/05/17 07:22 12/05/17 07:22 12/05/17 07:22 12/05/17 07:22 Microbiology 11/30/17 04:25 Blood Culture - Final Blood 11/30/17 04:11 Blood Culture - Final Blood 12/03/17 18:30 Blood Panel (PCR) - Final Blood No Organism Detected Laboratory Results 12/05/17 05:15 12/03/17 05:17 12/04/17 12/05/17 12/06/17 05:59 05:59 05:59 Intake Total 1600 750 Output Total 1000 Balance 600 750 ICD10 Worksheet Patient Problems: Problems Problem Status Onset Neutropenic fever Acute
[2017-12-05 11:37] VITALS: BP 123/81
--- NOTE | 2017-12-05 14:25 | PDIAF ---
- Diagnosis Diagnosis: MSSA bacteremia/port infection Code Status: Full Code - Medication Management Discharge Medications: Medications to Continue on Transfer Chemo 1 dose IV Q14D 11/28/17 [Last Taken 11/21/17] Citalopram [CeleXA] 20 mg PO HS 11/28/17 [Last Taken 11/27/17 21:00] Insulin Pump, Patient Own 1 ea MIS AD 11/28/17 [Last Taken 11/28/17] Levothyroxine [Synthroid 125 mcg (*)] 125 mcg PO DAILY06 11/28/17 [Last Taken 08:00] Liothyronine Sodium [Cytomel 5 mcg (*)] 5 mcg PO DAILY 11/28/17 [Last Taken 07/17 08:00] Melatonin [Melatonin 3 MG (*)] 3 mg PO HS 11/28/17 [Last Taken 11/27/17 21:00] Norgestrel-Ethinyl Estradiol [Tlj-[id number]-32 Tablet] 1 each PO DAILY 11/28/17 [ Last Taken 11/27/17 21:00] Residential Antibiotics: Cefazolin 2 g IV q.8 hours Residential Antibiotic Stop Date: 12/28/17 Discharge Medications: Refer to the Discharge Home Medication list for PRN reason. PICC Care - Routine: Yes - Orders Services needed: Home [facility] Care Face to Face: I certify that this patient was under my care and that I had the required [id number] encounter meeting the encounter requirements on the discharge day. My findings support the fact that the patient is homebound as defined in Home Care Face to Face Continued: CMS Chapter 7 Medicare Benefits Manual 30.1.1 , The condition of the patient is such that there exists a normal inability to leave home and consequently, leaving home would require a considerable and taxing effort. Isolation Type: Droplet Isolation, Neutropenic Isolation - Labs/Radiology CBC w/diff Date: 12/07/17 (Weekly Q Tuesday) CMP Date: 12/07/17 (Weekly Q Tuesday) Call or Fax Lab and Imaging Results to: Dr. Kohli, - Follow Up Care Current Providers and Referrals: NONE *PRIMARY CARE P,. [Primary Care Provider] - As per Instructions Titus Kohli MD [Medical Doctor] - 12/08/17 3:15 pm
--- NOTE | 2017-12-05 14:29 | PCMIDPN ---
Assessment/Plan: Assessment/Plan: * Neutropenic fever with MSSA bacteremia secondary to port infection status post port removal: Marked clinical improvement. Developed purulent fluid along prior port tract with recovery of ANC which is now status post incision and drainage. Plan 4 weeks of cefazolin with weekly laboratory monitoring. Favor 4 week duration over 2 weeks given need for ongoing chemotherapy as well as need for incision and drainage of prior port site. * Rhinovirus/enterovirus: Continued clinical improvement. * Blood cultures positive for gram-positive kyle: Suspect this may represent skin contaminant. Await formal identification. No modification of antibiotics in interim. Clinical findings and plan discussed with patient, mother, and Dr. Spears. 12/05/17 14:26 12/05/17 14:29 Subjective: Patient feels significantly improved. No sense of fever or chills. Pain over right chest decreased. Operative findings of Dr. Chowdary yesterday noted. Objective: Vital Signs Temp Pulse Resp BP Pulse Ox 36.4 C 91 16 123/81 H 93 12/05/17 11:34 12/05/17 11:34 12/05/17 11:34 12/05/17 11:34 12/05/17 11:34 Microbiology 12/03/17 18:30 Blood Panel (PCR) - Final Blood No Organism Detected 11/30/17 04:25 Blood Culture - Final Blood 11/30/17 04:11 Blood Culture - Final Blood Laboratory Results 12/05/17 05:15 12/03/17 05:17 12/04/17 12/05/17 12/06/17 05:59 05:59 05:59 Intake Total 1600 750 Output Total 1000 Balance 600 750 Cefazolin # 2, antibiotics # 6 Blood cultures 11/30/2017 no growth Blood cultures 12/04/2017 1/2 sets gram-positive kyle - Physical Exam General Appearance: alert, no apparent distress EENT: No scleral icterus, No conjunctival petechiae Respiratory: lungs clear, No respiratory distress Cardiac/Chest: regular rate, rhythm, other (Small amount of seropurulent drainage expressed from upper chest; no residual fluctuance or erythema) Abdomen: non-tender, No distended Skin: No embolic lesions - Time Spent With Patient Time Spent with Patient: greater than 35 minutes Time Spent with Patient: Greater than 35 minutes spent on this patients care, greater than 50% of time spent counseling, educating, and coordinating care regarding the above mentioned plan. ICD10 Worksheet Patient Problems: Problems Problem Status Onset Neutropenic fever Acute
--- NOTE | 2017-12-05 14:36 | PDIAF ---
- Diagnosis Diagnosis: MSSA bacteremia/port infection Code Status: Full Code - Medication Management Discharge Medications: Medications to Continue on Transfer Chemo 1 dose IV Q14D 11/28/17 [Last Taken 11/21/17] Citalopram [CeleXA 20 MG] 20 mg PO HS 11/28/17 [Last Taken 11/27/17 21:00] Insulin Pump, Patient Own 1 ea MISC AD 11/28/17 [Last Taken 11/28/17] Levothyroxine [Synthroid 125 mcg (*)] 125 mcg PO DAILY06 11/28/17 [Last Taken 08:00] Liothyronine Sodium [Cytomel 5 mcg (*)] 5 mcg PO DAILY 11/28/17 [Last Taken 07/17 08:00] Melatonin [Melatonin 3 MG (*)] 3 mg PO HS 11/28/17 [Last Taken 11/27/17 21:00] Norgestrel-Ethinyl Estradiol [Yav-Jmbpufhd-61 Tablet] 1 each PO DAILY 11/28/17 [ Last Taken 11/27/17 21:00] Calcium Carbonate [Tums 500MG (*)] 500 mg PO Q4H PRN tab.chew 12/05/17 [Last Taken Unknown] ceFAZolin 2 GM/DEXTROSE [Ancef 2 gm] 2 gm IV Q8HRS bag 12/05/17 [Last Taken Unknown] oxyCODONE/APAP 5/325 [Percocet 5/325 (*)] 1 - 2 tab PO Q4HRS PRN #15 tab [Last Taken Unknown] Detention Antibiotics: Cefazolin 2 g IV q.8 hours Detention Antibiotic Stop Date: 12/28/17 Discharge Medications: Refer to the Discharge Home Medication list for PRN reason. PICC Care - Routine: Yes - Orders Services needed: Home Care, Registered Nurse Home Care Face to Face: I certify that this patient was under my care and that I had the required [id number] encounter meeting the encounter requirements on the discharge day. My findings support the fact that the patient is homebound as defined in Home Care Face to Face Continued: CMS Chapter 7 Medicare Benefits Manual 30.1.1 , The condition of the patient is such that there exists a normal inability to leave home and consequently, leaving home would require a considerable and taxing effort. Diet Recommendation: no restrictions on diet Diet Texture: Regular Texture Diet - Labs/Radiology CBC w/diff Date: 12/07/17 (Weekly Q Tuesday) CMP Date: 12/07/17 (Weekly Q Tuesday) Call or Fax Lab and Imaging Results to: Dr. Kohli, - Follow Up Care Current Providers and Referrals: Titus Kohli MD [Medical Doctor] - 12/08/17 3:15 pm NONE *PRIMARY CARE P,. [Primary Care Provider] - As per Instructions
--- NOTE | 2017-12-05 15:04 | GDS ---
[f rep st] DISCHARGE SUMMARY DIAGNOSES: 1. Neutropenic fever, sepsis secondary to methicillin-sensitive Staphylococcus aureus bacteremia sec ondary to port. Port removed. 2. Viral pneumonitis with acute hypoxic respiratory failure, improved. 3. Pancytopenia with body aches secondary to Neulasta, improving. 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 CONSULTATIONS: Include Infectious Disease, Oncology, Hematology, General Surgery. PROCEDURES DONE: 1. Neck CT. 2. Extremity venous study. 3. Echocardiogram, no vegetations. 4. Port removal. 5. CT angiogram of the chest negative for PE. 6. PICC line insertion. HOSPITAL COURSE: The patient is a 27-year-old with a rhabdomyosarcoma who was admitted with a fever. She was neutropenic from chemotherapy and evaluation included blood cultures which revealed MSSA. It was thought secondary to her port, so Surgery was consulted and they removed her port on 8. Her neutropenia eventually resolved and her counts all came back up. She has done well except de veloped a small abscess at the site of her previous port. This was I and D'd by Dr. Chowdary on , after presenting with a mild fever. Since then, she has been afebrile, and she still has tender ness at the port site, but otherwise is doing well. Plan will be to go home and complete 4 weeks of nafcillin per Infectious Disease to treat her MSSA bacteremia. She did have a PICC line placed while she was here. CONDITION ON DISCHARGE: Good. PHYSICAL EXAMINATION: VITAL SIGNS: Stable. She is afebrile. Pain is well controlled. DISCHARGE MEDICATIONS: Please see discharge medicine reconciliation. FOLLOWUP INSTRUCTIONS: She needs to follow up with Dr. Chowdary on . Follow up with Infectious Disease as scheduled. Total time spent on day of discharge and coordination of care is 35 minutes. /[id number]/MODL
--- NOTE | 2017-12-05 15:24 | ASMTLACE ---
LACE Length of stay for Answers: 4-6 days current admission Acuity / Level of Answers: Yes Care: Did the patient have an inpatient admission? Comorbidities - select Answers: Any tumor (including all that apply lymphoma or leukemia) Diabetes (uncontrolled or controlled) # of Emergency department Answers: 1-2 visits in the last 6 months Score: 11 Date Signed: 12/05/2017 03:23 PM Electronically Signed By:Cary Rowley
--- NOTE | 2017-12-05 16:22 | ASMTCMCOM ---
CM Note CM Note Notes: Both [facility] and [facility] understood that they were to provide Pt with home care. [facility] has been contacted and told of situation and asked not to go to Pt's home tonight. Date Signed: 12/05/2017 04:21 PM Electronically Signed By:Cary Rowley
--- NOTE | 2017-12-12 14:29 | PQFORM ---
PHYSICIAN QUERY FORM Needs Your Response This query form is being sent to you to assure this patient record is coded properly. Please respond to the question below: WICKER WORKER QUESTION: Dr. Chowdary, Documentation in the operative note for this inpatient registration dated 2017 indicates an incision and drainage was performed on a chest wall abscess. Can the depth of the chest wall abscess be further specified as: skin subcutaneous tissue__yes muscle and/or fascia some other level of debridement undetermined Many thanks, ALIE Brooks Brake Rep[employer]r [employer]/[facility] INSTRUCTIONS FOR RESPONSE: Answer question by clicking on the "Edit Document" button. Move cursor to area below the stars. When complete, hit "Save." Click on the "Sign" button, then click "Sign" again. Type in your PIN and hit "Enter." MTDD
== END 2017-12-05 15:58 | disposition home health service (06) | DRG 987 ==
LOC: OBSVTOIN 19:09 → F1N 20:36
PROVIDERS: ADMIT Internal Medicine; ATTEND Internal Medicine
PROC: 0JPT03Z Removal of Infusion Device from Trunk Subcutaneous Tissue and Fascia, Open Approach (ICD-10-PCS; principal; 2017-11-29 15:45)
PROC: 0J960ZZ Drainage of Chest Subcutaneous Tissue and Fascia, Open Approach (ICD-10-PCS; 2017-12-03)
PROC: 02HV33Z Insertion of Infusion Device into Superior Vena Cava, Percutaneous Approach (ICD-10-PCS; 2017-12-03)
DX: T82.7XXA Infection and inflammatory reaction due to other cardiac and vascular devices, implants and grafts, initial encounter (principal); A41.01 Sepsis due to Methicillin susceptible Staphylococcus aureus; J12.9 Viral pneumonia, unspecified; D70.9 Neutropenia, unspecified; R50.81 Fever presenting with conditions classified elsewhere; L03.313 Cellulitis of chest wall; J96.01 Acute respiratory failure with hypoxia; D61.810 Antineoplastic chemotherapy induced pancytopenia; C79.89 Secondary malignant neoplasm of other specified sites; T82.848A Pain due to vascular prosthetic devices, implants and grafts, initial encounter; T45.8X5A Adverse effect of other primarily systemic and hematological agents, initial encounter; E10.65 Type 1 diabetes mellitus with hyperglycemia; E10.319 Type 1 diabetes mellitus with unspecified diabetic retinopathy without macular edema; M54.2 Cervicalgia; E03.9 Hypothyroidism, unspecified; B34.8 Other viral infections of unspecified site; B34.1 Enterovirus infection, unspecified; K76.9 Liver disease, unspecified
CPT/HCPCS: 82435-PO; 82565-PO; 82947-PO; 84132-PO; 84295-PO; 84520-PO; 85014-PO; 96374; C1751; J0690; J0692; J1170; J1885; J2250; J2405; J2550; J2704; J3010; J3370; Q5101; Q9967

== ENCOUNTER → 2017-12-08 | Outpatient (CLI) | payer OTHER | LOC: FIMAGING 08:15 | PROVIDERS: ATTEND Surgery | DX: L02.213 Cutaneous abscess of chest wall (principal) ==

== ENCOUNTER 2017-12-11 19:58 | Inpatient (IN) | payer OTHER ==
[2017-12-11] MEDS ORDERED: NS 1,000 ML IV ONE (20:20)
--- NOTE | 2017-12-11 20:35 | EDPHY ---
H & P Stated Complaint: tachycardia,fever,bladder discomfort Time Seen by Provider: 12/11/17 20:00 HPI/ROS: Chief Complaint: Fever, burning with urination HPI: 27-year-old woman with a complex medical history including type 1 diabetes , active treatment for rhabdomyosarcoma in her abdomen. She was recently admitted and discharged a week ago for bacteremia and sepsis secondary to a Port -A-Cath site infection and abscess. She currently has a PICC line and is receiving cefazolin 2 g every 8 hr. She has been having intermittent fevers for the last few days and today has been having more frequent alternating fevers and chills. She is also having increasing urination and burning with urination. Her blood sugars have been running in the 130s. She spoke with the on-call infectious disease doctor who instructed her to come in to have her urine and blood work checked. She says her last chemotherapy was over 20 days ago and her white blood cell counts have been normal. No nausea or vomiting. No cough or shortness of breath. ROS: 10 point Review of Systems is negative except as noted in the HPI. PMH: Type 1 diabetes on insulin pump, rhabdomyosarcoma, Port-A-Cath infection with abscess and sepsis Social History: No smoking, no alcohol, no recreational drug use Family History: non-contributory Physical Exam: Gen: Awake, Alert, No Distress HEENT: Nose: no rhinorrhea Eyes: PERRLA, EOMI Mouth: Moist mucosa Neck: Supple, no JVD Chest: nontender, lungs clear to auscultation, Port-A-Cath site on the right is pack, there is no erythema, there is no discharge, is nontender, there is no fluctuance Heart: S1, S2 normal, no murmur Abd: Soft, non-tender, no guarding Back: no CVA tenderness, no midline tenderness Ext: no edema, non-tender Skin: no rash Neuro: CN II-XII intact, Sensation grossly intact, Strength 5/5 in bilateral upper and lower extremities - Personal History LMP (Females 10-55): 15-21 Days Ago Current Tetanus Diphtheria and Acellular Pertussis (TDAP): Yes - Medical/Surgical History Hx Asthma: No Hx Chronic Respiratory Disease: No Hx Diabetes: Yes Hx Cardiac Disease: No Hx Renal Disease: No Hx Cirrhosis: No Hx Alcoholism: No Hx HIV/AIDS: No Hx Splenectomy or Spleen Trauma: No Other PMH: hypothyroid, stomach cancer, chemo,diabetes - Social History Smoking Status: Never smoked Constitutional: Initial Vital Signs Temperature (C) 38.6 C H 12/11/17 20:08 Heart Rate 129 H 12/11/17 20:08 Respiratory Rate 16 12/11/17 20:08 Blood Pressure 122/86 H 12/11/17 20:08 O2 Sat (%) 96 12/11/17 20:08 O2 Delivery Mode Room Air Allergies/Adverse Reactions: ondansetron Allergy (Unknown, Verified 12/11/17 20:06) Other-Enter Comments Home Medications: Medication Instructions Recorded Chemo 1 dose IV Q14D 11/28/17 Citalopram [CeleXA 20 MG] 20 mg PO HS 11/28/17 Insulin Pump, Patient Own 1 ea MISC AD 11/28/17 Levothyroxine [Synthroid 125 mcg 125 mcg PO DAILY06 11/28/17 (*)] Liothyronine Sodium [Cytomel 5 mcg 5 mcg PO DAILY 11/28/17 (*)] Melatonin [Melatonin 3 MG (*)] 3 mg PO HS 11/28/17 Norgestrel-Ethinyl Estradiol 1 each PO DAILY 11/28/17 [Ilv-Hfeuknsg-24 Tablet] Calcium Carbonate [Tums 500MG (*)] 500 mg PO Q4H PRN tab.chew 12/05/17 ceFAZolin 2 GM/DEXTROSE [Ancef 2 2 gm IV Q8HRS bag 12/05/17 gm] oxyCODONE/APAP 5/325 [Percocet 1 - 2 tab PO Q4HRS PRN #15 tab 12/05/17 5/325 (*)] Medical Decision Making - Diagnostics Imaging Results: Imaging Impressions Chest X-Ray 12/11/17 20:19 Impression: Negative chest. ED Course/Re-evaluation: 27-year-old woman presenting with fevers chills tachycardia. She meets SIRS criteria. Peripheral IV is been placed. B bloods and urinalysis have been drawn. 1 L normal saline IV bolus has been ordered. Her oxygenation is appropriate. Blood pressure is okay. Urine dip here is unremarkable, no signs of infection. Awaiting other blood work. [address] Nayan Jo, infectious Disease. He is recommending IV vancomycin and IV ertapenem now for broad coverage into hold her cefazolin. And continue weight her blood test results. She is at x-ray now. Will anticipate discussion with hospitalist. I have discussed the patient with Dr. Owens, hospitalist. He will admit to his service for further care. - Data Points Laboratory Results: 12/11/17 12/11/17 20:43 20:42 POC Sodium 132 mEq/L L mEq/L (135-145) POC Potassium 4.6 mEq/L mEq/L (3.3-5.0) POC Chloride 104.0 mEq/L mEq/L (97-110) POC Total CO2 25 mEq/L mEq/L (22-31) POC BUN 6 mg/dL L mg/dL (7-23) POC Creatinine 1.0 mg/dL mg/dL (0.6-1.0) POC Glucose 140 mg/dL H mg/dL (70-100) POC Lactic Acid Manohar 1.1 mmol/L mmol/L (0.7-2.1) POC Calcium 9.1 mg/dL mg/dL (8.5-10.4) Medications Given: Vancomycin HCl 1 gm/ Sodium (Chloride) 250 mls @ 250 mls/hr IV EDNOW ONE PRN Reason: Protocol Stop: 12/11/17 21:47 Last Admin: 12/11/17 21:15 Dose: 250 mls Discontinued Medications Sodium Chloride (Ns) 1,000 mls @ 0 mls/hr IV ONCE ONE; Wide Open PRN Reason: Protocol Stop: 12/11/17 20:21 Last Admin: 12/11/17 20:50 Dose: 1,000 mls Ertapenem 1 gm/ Sodium (Chloride) 100 mls @ 200 mls/hr IV EDNOW ONE PRN Reason: Protocol Stop: 12/11/17 21:17 Last Admin: 12/11/17 21:10 Dose: 100 mls Point of Care Test Results: CBC CBC Collection Date 12/11/17 CBC Collection Time 20:30 WBC 4.9 RBC 3.51 HGB 10 HCT 31.1 PLT 443 Neut # 4.2 Neut 85.7 LYMPH # 0.4 LYMPH 7.4 Other WBC # 0.3 Other WBC 6.9 MCV 88.6 Chemistry 12/11/17 20:43 POC Sodium 132 mEq/L L mEq/L (135-145) POC Potassium 4.6 mEq/L mEq/L (3.3-5.0) POC Chloride 104.0 mEq/L mEq/L (97-110) POC Total CO2 25 mEq/L mEq/L (22-31) POC BUN 6 mg/dL L mg/dL (7-23) POC Creatinine 1.0 mg/dL mg/dL (0.6-1.0) POC Glucose 140 mg/dL H mg/dL (70-100) POC Calcium 9.1 mg/dL mg/dL (8.5-10.4) Blood Gas/Lactic Acid-Venous 12/11/17 20:42 POC Lactic Acid Manohar 1.1 mmol/L mmol/L (0.7-2.1) Urine Dip Collection Date 12/11/17 Collection Time 20:30 Specific [place] (1.002-1.030) 1.015 PH (5.0-7.5) 7.0 Leukocytes (Negative) Negative Nitrites (Negative) Negative Protein (Negative) Trace Glucose (Negative) Negative Ketones (Negative) Negative Urobilnogen (0.2-1.0 EU) 0.2 Bilirubin (Negative) Negative Blood (Negative) Negative Departure - Departure Disposition: [facility] Inpatient Acute Clinical Impression: Fever, Tachycardia, Dehydration Condition: Fair Referrals: Nayan Jo MD [Primary Care Provider] - As per Instructions
[2017-12-11] MEDS ORDERED: ERTAPENEM 1 GM in NS 100 ML IV ONE (20:48)
[2017-12-11] MEDS ORDERED: VANCOMYCIN 1 GM in NS 250 ML IV ONE (20:48)
[2017-12-11] MEDS ORDERED: PROMETHAZINE HCL 25 MG/ML INJ ONE (20:57)
[2017-12-11 21:38] LABS: PLATELET COUNT 409 10^3/uL (150-400)
[2017-12-11] MEDS ORDERED: PROMETHAZINE HCL 25 MG/ML INJ IVP ONE (21:44)
[2017-12-11] MEDS: NS 1,000 ML IV ONE (22:10)
[2017-12-11] MEDS ORDERED: ACETAMINOPHEN 120 MG SUPP PR ONE (22:30)
[2017-12-11] MEDS ORDERED: ACETAMINOPHEN 500 MG TAB ONE (22:53)
[2017-12-11] MEDS ORDERED: ACETAMINOPHEN 650 MG SUPP PR ONE (22:57)
[2017-12-11] MEDS ORDERED: ONDANSETRON DISINTEGRATING 4 MG TAB PO PRN (23:15)
[2017-12-11] MEDS ORDERED: ONDANSETRON 4 MG/2 ML VIAL IVP PRN (23:15)
[2017-12-11] MEDS ORDERED: D50W 25 GM/50 ML SYR IVP PRN (23:17)
[2017-12-11] MEDS ORDERED: INSULIN PUMP, PATIENT OWN 1 EA MISC SCH (23:30)
[2017-12-11 23:45] LABS: INR 1.25 (0.83-1.16); PROTIME(PATIENT) 15.9 SEC (12.0-15.0)
[2017-12-12] MEDS ORDERED: ACETAMINOPHEN 650 MG SUPP PR ONE ×2 (00:04→00:30)
[2017-12-12] MEDS ORDERED: D50W 25 GM/50 ML VIAL IVP PRN (01:16)
[2017-12-12] MEDS ORDERED: INSULIN PUMP, PATIENT OWN 1 EA MISC SCH ×2 (01:30→08:30)
[2017-12-12] MEDS ORDERED: VANCOMYCIN 1.5 GM in NS 250 ML IV ONE (01:30)
--- NOTE | 2017-12-12 02:31 | PDGENHP ---
History and Physical - Chief Complaint Fever, chills - History of Present Illness 27 yo F w/ hx of recurrent rhabdomyosarcoma, IDDM, and recent admission for neutropenic fever 2/2 MSSA bacteremia presents with fever and chills. The patient was discharged from the hospital on 12/05 with ongoing Nafcillin treatment for port infection. Port was removed and a small abscess was I&D'd by Dr. Chowdary on 12/04. She tells me that she has been having chills since leaving the hospital. Today, however, she had a fever; measured as 38.6 at the [facility]. She also complains o foul smelling urine and frequency. She denies other infectious symptoms such as cough, abdominal pain, and diarrhea. Of note, Dr. Jordan's note states that urine dipstick at the [facility] was normal and not consistent with infection. I am not sure why this is not available for review in the EMR. Case was discussed with Dr. Owens. Previous records reviewed including D/C summary by Dr. Spears dated 12/05 detailing her recent admission for treatment of bacteremia. History Information - Allergies/Home Medication List Allergies/Adverse Reactions: ondansetron Allergy (Unknown, Verified 12/11/17 20:06) Other-Enter Comments Home Medications: Chemo 1 dose IV Q14D 11/28/17 [Last Taken 11/21/17] Citalopram [CeleXA 20 MG] 20 mg PO 11/28/17 [Last Taken 11/27/17 21:00] Insulin Pump, Patient Own 1 ea [facility] AD 11/28/17 [Last Taken 11/28/17] Levothyroxine [Synthroid 125 mcg (*)] 125 mcg PO DAILY06 11/28/17 [Last Taken 08:00] Liothyronine Sodium [Cytomel 5 mcg (*)] 5 mcg PO DAILY 11/28/17 [Last Taken 07/17 08:00] Melatonin [Melatonin 3 MG (*)] 3 mg PO 11/28/17 [Last Taken 11/27/17 21:00] Norgestrel-Ethinyl Estradiol [Tem-Lpithfei-83 Tablet] 1 each PO DAILY 11/28/17 [ Last Taken 11/27/17 21:00] I have personally reviewed and updated: family history, medical history - Past Medical History Additional medical history: Rhabdomyosarcoma of the abdominal wall diagnosed in 2010, status post 11 months of treatment beginning at [facility], and then subsequent remission until September of 2017, when the area was noted in her right mid abdomen subcutaneous tissue, and she began receiving chemotherapy at [facility]. Retinopathy. Diabetes mellitus type 1. Hypothyroidism - Surgical History Additional surgical history: 11/17/2017 right IJ port placement. No previous bowel surgeries - Family History Additional family history: Mother is healthy at bedside - Social History Smoking Status: Never smoked Additional social history: Independent in ADLs Review of Systems Review of Systems: ROS: 10pt was reviewed & negative except for what was stated in HPI & below Physical Exam Physical Exam: Temp Pulse Resp BP Pulse Ox 37.2 C 94 12 107/56 L 96 12/12/17 00:49 12/12/17 00:49 12/12/17 00:49 12/12/17 00:49 12/12/17 00:49 O2 (L/minute) 1 Constitutional: no apparent distress, not in pain Eyes: PERRL, EOMI Ears, Nose, Mouth, Throat: moist mucous membranes, no oral mucosal ulcers Cardiovascular: regular rate and rhythym, no murmur, rub, or gallop, other ( Previous port site R upper chest with dressing c/d/i; non-tender) Respiratory: no respiratory distress, no rales or rhonchi Gastrointestinal: normoactive bowel sounds, soft, non-tender abdomen Skin: warm, normal color, other (Previous port site R upper chest with dressing c/d/i; non-tender) Neurologic: AAOx3, CN II-XII Intact Psychiatric: interacting appropriately, not anxious Lab Data & Imaging Review 12/11/17 20:35 12/11/17 20:35 WBC 5.12 10^3/uL (3.80-9.50) 12/11/17 20:35 RBC 3.41 10^6/uL (4.18-5.33) L 12/11/17 20:35 Hgb 10.0 g/dL (12.6-16.3) L 12/11/17 20:35 Hct 29.4 % (38.0-47.0) L 12/11/17 20:35 MCV 86.2 fL (81.5-99.8) 12/11/17 20:35 MCH 29.3 pg (27.9-34.1) 12/11/17 20:35 MCHC 34.0 g/dL (32.4-36.7) 12/11/17 20:35 RDW 14.6 % (11.5-15.2) 12/11/17 20:35 Plt Count 409 10^3/uL (150-400) H 12/11/17 20:35 MPV 10.2 fL (8.7-11.7) 12/11/17 20:35 Neut % (Auto) Not Reported 12/11/17 20:35 Lymph % (Auto) Not Reported 12/11/17 20:35 [place] % (Auto) Not Reported 12/11/17 20:35 Eos % (Auto) Not Reported 12/11/17 20:35 Baso % (Auto) Not Reported 12/11/17 20:35 Nucleat RBC Rel Count Not Reported 12/11/17 20:35 Absolute Neuts (auto) Not Reported 12/11/17 20:35 Absolute Lymphs (auto) Not Reported 12/11/17 20:35 Absolute Monos (auto) Not Reported 12/11/17 20:35 Absolute Eos (auto) Not Reported 12/11/17 20:35 Absolute Basos (auto) Not Reported 12/11/17 20:35 Absolute Nucleated RBC Not Reported 12/11/17 20:35 Immature Gran % Not Reported 12/11/17 20:35 Seg Neutrophils % 82.0 % 12/11/17 20:35 Band Neutrophils % 5.0 % 12/11/17 20:35 Lymphocytes % 7.0 % 12/11/17 20:35 Monocytes % 5.0 % 12/11/17 20:35 Eosinophils % 0 % 12/11/17 20:35 Basophils % 0 % 12/11/17 20:35 Metamyelocytes % 1.0 % 12/11/17 20:35 Myelocytes % 0 % 12/11/17 20:35 Promyelocytes % 0 % 12/11/17 20:35 Blast Cells % 0 % 12/11/17 20:35 Immature Gran # Not Reported 12/11/17 20:35 Absolute Seg Neuts 4.20 10^/uL (1.70-6.50) 12/11/17 20:35 Absolute Band Neuts 0.26 10^3/uL (0.00-0.70) 12/11/17 20:35 Absolute Lymphocytes 0.36 10^3/uL (1.00-3.00) L 12/11/17 20:35 Absolute Monocytes 0.26 10^3/uL (0.30-0.80) L 12/11/17 20:35 Absolute Eosinophils 0.00 10^3/uL (0.03-0.40) L 12/11/17 20:35 Absolute Basophils 0.00 10^3/uL (0.02-0.10) L 12/11/17 20:35 Absolute Metamyelocyte 0.05 10^3/mL (0.00-0.00) H 12/11/17 20:35 Absolute Myelocytes 0.00 10^3/mL (0.00-0.00) 12/11/17 20:35 Absolute Promyelocytes 0.00 10^3/uL (0.00-0.00) 12/11/17 20:35 Absolute Plasma Cells 0.00 10^3/uL (0.00-0.00) 12/11/17 20:35 Nucleated RBCs 0 /100 WBC (0-0) 12/11/17 20:35 Absolute Blast Cells 0.00 10^3/uL (0.00-0.00) 12/11/17 20:35 Plasma Cells % 0 % 12/11/17 20:35 Platelet Estimate INCREASED (ADEQ) H 12/11/17 20:35 Polychromasia 1+ H 12/11/17 20:35 Microcytic Cells 1+ H 12/11/17 20:35 PT 15.9 SEC (12.0-15.0) H 12/11/17 22:25 INR 1.25 (0.83-1.16) H 12/11/17 22:25 APTT 32.2 SEC (23.0-38.0) 12/11/17 22:25 POC Sodium 132 mEq/L (135-145) L 12/11/17 20:43 Sodium 134 mEq/L (135-145) L 12/11/17 20:35 POC Potassium 4.6 mEq/L (3.3-5.0) 12/11/17 20:43 Potassium 4.6 mEq/L (3.3-5.0) 12/11/17 20:35 POC Chloride 104.0 mEq/L (97-110) 12/11/17 20:43 Chloride 100 mEq/L (97-110) 12/11/17 20:35 Carbon Dioxide 23 mEq/l (22-31) 12/11/17 20:35 POC Total CO2 25 mEq/L (22-31) 12/11/17 20:43 Anion Gap 11 mEq/L (8-16) 12/11/17 20:35 POC BUN 6 mg/dL (7-23) L 12/11/17 20:43 BUN 7 mg/dL (7-23) 12/11/17 20:35 Creatinine 0.8 mg/dL (0.6-1.0) 12/11/17 20:35 POC Creatinine 1.0 mg/dL (0.6-1.0) 12/11/17 20:43 Estimated GFR > 60 12/11/17 20:35 Glucose 132 mg/dL (70-100) H 12/11/17 20:35 POC Glucose 140 mg/dL (70-100) H 12/11/17 20:43 POC Lactic Acid Manohar 1.1 mmol/L (0.7-2.1) 12/11/17 20:42 POC Calcium 9.1 mg/dL (8.5-10.4) 12/11/17 20:43 Calcium 8.8 mg/dL (8.5-10.4) 12/11/17 20:35 Total Bilirubin 0.8 mg/dL (0.1-1.4) 12/11/17 20:35 Imaging Review: Imaging Impressions Chest X-Ray 12/11/17 20:19 Impression: Negative chest. Visualized and Interpreted Chest x-ray results: Yes Chest X-Ray results: normal Assessment & Plan Assessment: 27 yo F w/ hx of recurrent rhabdomyosarcoma, IDDM, and recent admission for neutropenic fever 2/2 MSSA bacteremia presents with fever and chills. Plan: 1. Fever - Patient complaining of urinary symptoms; however, per report, urine dipstick at [facility] was unremarkable. I am not sure why this is not available in the EMR. She is currently on 4 week course of Nafcillin for recent MSSA bacteremia. CXR unremarkable(personally interpreted), she denies other symptoms. WBC only 5 on admission and hemodynamically stable. - Repeat UA (although now after antibiotics) - Blood cultures pending - Vancomycin and Ertapenem per ID recs - ID consulted, appreciate assistance 2. MSSA bacteremia - Recently admitted for this; now on 4 week Nafcillin course. - Hold Nafcillin for now 3. IDDM - Will continue patient's insulin pump. - BG ACHS, D50 IV PRN for hypoglycemia ordered 4. Recurrent rhabdomyosarcoma - Undergoing treatment at [facility]. Diet - Regular Code - Full Ppx - Low risk, ambulate TID Dispo - Admit under observation status
[2017-12-12] MEDS ORDERED: VANCOMYCIN 1.25 GM in NS 250 ML IV SCH (05:00)
[2017-12-12 06:31] LABS: PLATELET COUNT 321 10^3/uL (150-400)
[2017-12-12] MEDS ORDERED: D50W 25 GM/50 ML SYR IVP PRN (08:29)
--- NOTE | 2017-12-12 10:10 | PDMN ---
Medical Necessity Medical necessity: MCG: M160 sepsis and other febrile illness without focal infection A-3 days: pt with recurrent rhabdomyosarcoma, IDDM, MSSA bacteremia - presents with fever and chills, foul smelling urine, pt recently DC 12/05 for port infection, recent neutropenic fever, > 2 MN anticipated for med nec eval and tx of above with cultures pending,
--- NOTE | 2017-12-12 12:11 | PCMIDPN ---
Assessment/Plan: Assessment/Plan: * Fever: Patient with persistent fever in the setting of recent drainage of residual abscess at prior port site associated with MSSA bacteremia. Chest wall exam shows improvement versus when seen last week without residual purulence. Patient now has diarrhea raising possibility of C difficile colitis as etiology for her fever. PICC associated bacteremia or fungemia would also be of consideration. Did have recent neutropenia after chemotherapy as well. Drug fever related to cefazolin also a possibility. Will continue empiric antibiotic therapy with vancomycin and meropenem pending additional blood culture data. Agree with checking for C difficile with diarrhea and antibiotic exposure. Will check urine culture although symptoms atypical. If above unrevealing, will repeat chest/neck ultrasound to ensure no evidence of DVT which also could be associated with fever. * Diarrhea: See above discussion regarding C difficile testing. Agree with use of GI pathogen panel given exposure to Giardia in her new dog as well. Giardia however would not be associated with fever. * MSSA bacteremia due to port infection: Will be covered by above antibiotic therapy in interim. Currently completing a 4 week course of treatment. 12/12/17 12:01 12/12/17 12:19 Subjective: Patient readmitted with fever and shaking chills. Please see my office note in [place] dated 11/08/2017 for details. Patient also notes new onset watery diarrhea. Also describes foul smell to urine with mild dysuria on occasion. Mild nausea but no vomiting. No significant abdominal pain. Right upper chest wall improved with less tenderness and no further drainage. No problems with use of PICC line. No PICC associated swelling, redness or drainage. Was on cefazolin for recent port associated MSSA bacteremia which she had been tolerating well. Local incision and drainage on 11/08/[address] Chowdary for residual abscess at port site. Objective: Vital Signs Temp Pulse Resp BP Pulse Ox 36.6 C 70 16 105/64 97 12/12/17 11:36 12/12/17 11:36 12/12/17 11:36 12/12/17 11:36 12/12/17 11:36 Laboratory Results 12/12/17 05:05 12/12/17 05:05 12/11/17 12/12/17 12/13/17 05:59 05:59 05:59 Intake Total 1500 360 Output Total 700 400 Balance 800 -40 Vancomycin # 1 Ertapenem # 1 Blood cultures x2 pending - Physical Exam General Appearance: alert, no apparent distress EENT: No scleral icterus, No thrush, No conjunctival petechiae Cardiac/Chest: regular rate, rhythm, other (Right upper chest significantly improved versus prior exam without significant tenderness and no further purulent drainage) Extremities: No inflammation Abdomen: non-tender, No distended Skin: No rash, No embolic lesions - Line/s RUE PICC Lines: No drainage, No erythema - Time Spent With Patient Time Spent with Patient: greater than 35 minutes Time Spent with Patient: Greater than 35 minutes spent on this patients care, greater than 50% of time spent counseling, educating, and coordinating care regarding the above mentioned plan. ICD10 Worksheet Patient Problems: Problems Problem Status Onset Dehydration Acute Fever Acute Tachycardia Acute Neutropenic fever Acute
[2017-12-12] MEDS ORDERED: MEROPENEM 1 GM in NS 100 ML IV SCH (14:00)
--- NOTE | 2017-12-12 16:59 | WOCRNPDOC ---
WOCRN Advanced Assessment Note - Skin Integrity Problem, Advanced Assess Right Chest Surgical Wound/Incision Dressing Type: Allevyn Life Dressing Description: Clean/Dry, Intact Exudate Amount: Scant Exudate Characteristic(s): Purulent, Serosanguinous Integumentary Issue Intervention: Visualized Under Dressing Terrence Wound Tissue: Erythema Wound Bed Color: Red, Yellow Wound Bed Constitution: Red/[place] - Non Granular Tissue, Undermining (from 12-2 oclock 4-4.5 cm ), Subcutaneous Fat Site Measurement - Head-to-Toe Length X Width X Depth (cm): 1x2.3x0.5 Skin Integrity Problem Comment: No drainage on Allevyn life, however there is some purulent drainage in wound bed that was observed on Q tip when undermining area was explored. The undermining connects to small wound located on right inferior neck. Area was flushed extensively with pressurized NS. Wound care will change order from hydrofera blue to Cutimed as the wide Cutimed packing is thinner. Abeba WILKINSON in room for care. Right Lower Neck Surgical Wound/Incision Dressing Type: Open to Air Exudate Amount: Moderate Exudate Characteristic(s): Purulent Terrence Wound Tissue: Erythema (to 1 cm terrence wound) Wound Bed Constitution: Scab Site Measurement - Head-to-Toe Length X Width X Depth (cm): 0.2x0.3xscab Skin Integrity Problem Comment: Patient reported that this wound has purulent drainage and is/was connected to right chest surgical site wound. As area was palpated purulence was expressed from 10 oclock underneath the scab. This area was left open to air. Will paint with betadine. Wound care will round later this week.
[2017-12-12] MEDS ORDERED: VANCOMYCIN 1.5 GM in D5W 250 ML IV SCH (17:00)
--- NOTE | 2017-12-12 17:12 | ASMTCMCOM ---
CM Note CM Note Notes: Chart reviewed. Patient admitted for ongoing chills and symptoms of UTI and diarrhea, Sje is s/p mediport removal. Ultrasound of right arm pending. Mom at bedside. Current with [facility]. Plan TBD. Plan: Home with [facility] when medically cleared for discharge. Date Signed: 12/12/2017 05:11 PM Electronically Signed By:Virginia Rich RN
[2017-12-12] MEDS ORDERED: OXYCODONE/APAP 5/325 TAB PO PRN (17:50)
[2017-12-12] MEDS ORDERED: PROCHLORPERAZINE MALEATE 10 MG TAB PO PRN (17:50)
[2017-12-12] MEDS ORDERED: CALCIUM CARBONATE 500 MG CHEWABLE TAB PO PRN (17:50)
--- NOTE | 2017-12-12 17:54 | HOSPPROG ---
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 Objective: Vital Signs Temp Pulse Resp BP Pulse Ox 36.6 C 95 16 108/77 99 12/12/17 16:20 12/12/17 16:20 12/12/17 16:20 12/12/17 16:20 12/12/17 16:20 Laboratory Results 12/12/17 05:05 12/12/17 05:05 12/11/17 12/12/17 12/13/17 05:59 05:59 05:59 Intake Total 1500 360 Output Total 700 400 Balance 800 -40 PT 15.9 SEC (12.0-15.0) H 12/11/17 22:25 INR 1.25 (0.83-1.16) H 12/11/17 22:25 d/w DR. stephenson regarding treatment plan CXR - negative - Physical Exam Constitutional: no apparent distress, appears nourished, not in pain Cardiovascular: regular rate and rhythym, no murmur, rub, or gallop Respiratory: no respiratory distress, no rales or rhonchi, clear to auscultation Gastrointestinal: normoactive bowel sounds, soft, non-tender abdomen, no palpable masses Skin: no rashes or abrasions, no fluctuance, no induration Neurologic: AAOx3, sensation intact bilaterally Psychiatric: interacting appropriately, not anxious, not encephalopathic, thought process linear ICD10 Worksheet Patient Problems: Problems Problem Status Onset Dehydration Acute Fever Acute Tachycardia Acute Neutropenic fever Acute
[2017-12-12] MEDS: NAFCILLIN SODIUM 2 GM in D5W 100 ML IV SCH ×2 (18:38→22:11)
[2017-12-12] MEDS: ACETAMINOPHEN 325 MG TAB PO PRN (20:35)
[2017-12-12] MEDS: CITALOPRAM 20 MG TAB PO SCH (20:36)
[2017-12-12] MEDS ORDERED: ERTAPENEM 0.5 GM in NS 50 ML IV SCH (21:00)
[2017-12-12] MEDS: ENOXAPARIN 100 MG/ML SYR SC SCH (21:04)
[2017-12-12] MEDS: LORazepam 1 MG TAB PO PRN (21:11)
[2017-12-12] MEDS: MELATONIN 3 MG TAB PO SCH (22:12)
[2017-12-12] MEDS: NS 1,000 ML IV ONE (22:18)
[2017-12-12] MEDS: Norgestrel-Ethinyl Estradiol [Low-Ogestrel-28 Tablet] 1 EACH PO SCH (23:02)
[2017-12-13] MEDS: NAFCILLIN SODIUM 2 GM in D5W 100 ML IV SCH ×6 (02:35→22:59)
[2017-12-13] MEDS: LEVOTHYROXINE 125 MCG TAB PO SCH (05:29)
[2017-12-13 05:56] LABS: PLATELET COUNT 363 10^3/uL (150-400)
--- NOTE | 2017-12-13 08:41 | PCMIDPN ---
Assessment/Plan: Assessment/Plan: * Fever with recurrent MSSA bacteremia: Repeat blood cultures reveal recurrent MSSA bacteremia despite cefazolin therapy. Likely associated with septic thrombophlebitis based on ultrasound findings yesterday. Suspect presence of chest wall abscess (resolved by ultrasound assessment) led to increased inflammatory response with subsequent development of septic thrombophlebitis. Patient has now been initiated on Lovenox. Continue nafcillin. Repeat blood cultures today to assess for clearing of bacteremia. Likely will need repeat ultrasound later this week to ensure no evidence of clot propagation/SVC involvement. Will have Oncology assist with ongoing management. * Diarrhea: Overall improved although recurrent this a.m.. Await stool pathogen PCR testing as outlined on 12/12/2017. 12/13/17 08:38 12/13/17 08:41 Subjective: Patient feels improved this a.m.. No significant chills overnight. Less diarrhea yesterday but 1 episode this a.m.. Objective: Vital Signs Temp Pulse Resp BP Pulse Ox 36.4 C 87 18 113/60 94 12/13/17 08:10 12/13/17 08:10 12/13/17 08:10 12/13/17 08:10 12/13/17 08:10 Laboratory Results 12/13/17 05:27 12/12/17 05:05 12/12/17 12/13/17 12/14/17 05:59 05:59 05:59 Intake Total 1500 1610 Output Total 700 400 Balance 800 1210 Nafcillin # 1 Blood cultures 2/2 MSSA Ultrasound shows evidence of DVT in the low right IJ and innominate vein without extension to SVC; no thrombus along PICC; chest wall abscess resolved - Physical Exam General Appearance: alert, no apparent distress EENT: No scleral icterus, No thrush, No conjunctival petechiae Respiratory: lungs clear, No respiratory distress Cardiac/Chest: regular rate, rhythm, other (Chest wall without inflammatory findings; no residual fluctuance or purulent drainage; no tenderness in right anterior neck), No systolic murmur Extremities: No inflammation Abdomen: non-tender, No distended Skin: No embolic lesions - Line/s RUE PICC Lines: No drainage, No erythema ICD10 Worksheet Patient Problems: Problems Problem Status Onset Dehydration Acute Fever Acute Tachycardia Acute Neutropenic fever Acute
[2017-12-13] MEDS ORDERED: LIOTHYRONINE SODIUM 5 MCG TAB PO SCH (09:00)
[2017-12-13] MEDS: ENOXAPARIN 100 MG/ML SYR SC SCH ×2 (09:40→21:37)
--- NOTE | 2017-12-13 15:55 | HOSPPROG ---
Hospitalist Progress Note Assessment/Plan: * Recurrent MSSA bacteremia -IV Nafcillin -suspect septic thrombophlebitis as source of recurrent infection * PICC line associated DVT - septic thrombophlebitis -Lovenox -change PICC once f/u BC negative * Recurrent rhabdomyosarcoma -tx at [facility] * Recent port infection with abscess s/p removal/I&D -wound care -US negative for residual abscess * DM 1 -insulin pump Subjective: No new complaints. Objective: Vital Signs Temp Pulse Resp BP Pulse Ox 37.0 C 84 15 107/70 96 12/13/17 15:42 12/13/17 15:42 12/13/17 15:42 12/13/17 15:42 12/13/17 15:42 Microbiology 12/12/17 08:42 Gastrointestinal Tract Panel (PCR) - Final Stool No Organism Detected Laboratory Results 12/13/17 05:27 12/12/17 05:05 12/12/17 12/13/17 12/14/17 05:59 05:59 05:59 Intake Total 1500 1610 Output Total 700 400 300 Balance 800 1210 -300 PT 15.9 SEC (12.0-15.0) H 12/11/17 22:25 INR 1.25 (0.83-1.16) H 12/11/17 22:25 - Physical Exam Constitutional: no apparent distress, appears nourished, not in pain Cardiovascular: regular rate and rhythym, no murmur, rub, or gallop Respiratory: no respiratory distress, no rales or rhonchi, clear to auscultation Gastrointestinal: normoactive bowel sounds, soft, non-tender abdomen, no palpable masses Skin: no rashes or abrasions, no fluctuance, no induration Neurologic: AAOx3, sensation intact bilaterally Psychiatric: interacting appropriately, not anxious, not encephalopathic, thought process linear ICD10 Worksheet Patient Problems: Problems Problem Status Onset Dehydration Acute Fever Acute Tachycardia Acute Neutropenic fever Acute
--- NOTE | 2017-12-13 21:05 | GCON ---
[f rep st] CONSULTATION ONCOLOGY CONSULTATION REASON FOR CONSULTATION: Staph bacteremia with history of recurrent rhabdomyosarcoma. HPI: The patient is a very pleasant 27-year-old female who is admitted with recurrent methicillin se nsitive Staph bacteremia occurring in the midst of treatment for recurrent rhabdomyosarcoma. 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 She was initially treated with cyclophosphamide, vincristine, Adriamycin for a total of 40 weeks. She then underwent proton beam radiation therapy at [facility]. She was then in a complete remission. 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 In September of this year, she noted new pain in the right abdomen, initially thought to be related to her insulin infusion site. Ultraso und revealed a 3.8 cm mass in the subcutaneous tissue at the right midline and a biopsy of the mass w as consistent with a rhabdomyosarcoma. CT scan identified some indeterminate small lesions in the joann ng and 1 in the liver. She was seen at the sarcoma multidisciplinary Clinic at [place] in October the plan was to treat her with neoadjuvant chemotherapy with anticipation of ultimate resection of the mass. She is followed by Dr. Danny Roth at [facility]. The recommended chemotherapy regime n was VAC/IE. This regimen is given every 14 days and alternates with vincristine, Adriamycin and cy clophosphamide, then followed by 2 weeks later with ifosfamide and etoposide. She received her 1st c ycle of chemotherapy with VAC on November 21. She did receive Neulasta; however, there was some questi on as to whether or not the auto injection worked completely. A port was placed on November 17 prior t o starting chemotherapy. She developed pain in her neck and right upper chest approximately 1 week a fter placement of the port. This was associated with fevers. She was admitted to the hospital in november with neutropenic fever with cultures demonstrating methicillin sensitive Staph aureus. She was seen in consultation by Infectious Disease and the MediPort was removed. She was treated with na fcillin. She developed a small abscess at the site of the previous port, which was drained at the ti me of the removal of the port. A PICC line was placed for the administration of the nafcillin. More recently, the patient was admitted yesterday with symptoms of recurrent fever despite ongoing na fcillin treatments. Repeat blood cultures identified persistent methicillin sensitive Staph bacterem ia. Ultrasound of the right internal jugular vein identified an acute DVT in the lower right interna l jugular vein and right innominate vein. There was no evidence of SVC thrombosis. She is being fol lowed by Infectious Disease who feels that most likely she has a septic thrombophlebitis. She has be en started on Lovenox and is continuing with nafcillin. Currently, the patient is feeling better. She denies any neck pain. She was having diarrhea but willow t has improved. She has only received the 1 cycle of chemotherapy in late October and chemotherapy is c urrently being delayed until her infectious complications have resolved. She denies any other new sy mptoms. 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 PAST SURGICAL HISTORY: Unremarkable. REVIEW OF SYSTEMS: A 10-point review of systems is negative other than noted in HPI. SOCIAL HISTORY: She is a nonsmoker and nondrinker. PHYSICAL EXAM: GENERALLY: She is comfortable, nontoxic appearing young woman, sitting in a chair. VITAL SIGNS: Stable. She is afebrile. HEENT: Pupils are equal. Sclerae anicteric. She has total alopecia. LUNGS: Clear to auscultation. Right previous port site is bandaged. NECK: Nontender w ithout any palpable cords. ABDOMEN: Soft and nontender. EXTREMITIES: PICC line in place in the rig ht arm. LABORATORY DATA: White blood cell count 5.0, hematocrit 26.7, platelets 363. IMPRESSION: This is a 27-year-old female with recurrent rhabdomyosarcoma, now with persistent bacter emia with methicillin sensitive Staph aureus. The initial infection was felt to be related to the po rt with a port associated abscess and now in the setting of ongoing bacteremia despite nafcillin ther apy, she is felt to likely have a septic thrombophlebitis. She is being treated with therapeutic Anna enox. She received her 1st cycle of chemotherapy in late October and any additional chemotherapy is on hold for now. We will make an effort to contact Dr. Roth at [facility] to update him on her situ ation. She is past the matthew from her initial chemotherapy and therefore I would not expect any neut ropenia to developed in the near future. We will continue to follow along with you. /[id number]/MODL
[2017-12-13] MEDS: CITALOPRAM 20 MG TAB PO SCH (21:36)
[2017-12-13] MEDS: MELATONIN 3 MG TAB PO SCH (21:37)
[2017-12-13] MEDS: Norgestrel-Ethinyl Estradiol [Low-Ogestrel-28 Tablet] 1 EACH PO SCH (21:37)
[2017-12-13] MEDS: LORazepam 1 MG TAB PO PRN (21:37)
[2017-12-14] MEDS: NAFCILLIN SODIUM 2 GM in D5W 100 ML IV SCH ×6 (02:25→21:30)
[2017-12-14] MEDS: LIOTHYRONINE SODIUM 5 MCG TAB PO SCH (06:00)
[2017-12-14] MEDS: LEVOTHYROXINE 125 MCG TAB PO SCH (06:00)
[2017-12-14 06:13] LABS: PLATELET COUNT 378 10^3/uL (150-400)
--- NOTE | 2017-12-14 11:21 | PCMIDPN ---
Assessment/Plan: Assessment/Plan: * Fever with recurrent MSSA bacteremia: Persistently positive blood cultures on nafcillin. Likely related to septic thrombophlebitis as reason for persistent high-grade bacteremia. Will remove PICC line to ensure this is not residual focus for infection. Given recurrent and high-grade nature of bacteremia, think she should undergo transesophageal echocardiogram to further assess for endocarditis (initial TTE negative on initial hospitalization). Will plan repeat ultrasound tomorrow to ensure no evidence of DVT propagation. Continue nafcillin. Repeat blood cultures in a.m. To assess for clearing of bacteremia. * Diarrhea: GI pathogen panel PCR negative. Diarrhea has now resolved. 12/14/17 11:17 Subjective: Patient feels about the same. No chest wall tenderness. No further diarrhea. Objective: Vital Signs Temp Pulse Resp BP Pulse Ox 36.8 C 83 16 107/67 95 12/14/17 07:45 12/14/17 07:45 12/14/17 07:45 12/14/17 07:45 12/14/17 07:45 Microbiology 12/12/17 08:42 Gastrointestinal Tract Panel (PCR) - Final Stool No Organism Detected Laboratory Results 12/14/17 05:55 12/12/17 05:05 12/13/17 12/14/17 12/15/17 05:59 05:59 05:59 Intake Total 1610 420 Output Total 400 1600 Balance 1210 -1180 Nafcillin # 2 Blood cultures 12/13/2017 1/2 sets GPCs in clusters - Physical Exam General Appearance: alert, no apparent distress EENT: No scleral icterus Respiratory: lungs clear, No respiratory distress Cardiac/Chest: regular rate, rhythm, other (Chest wall without residual erythema or tenderness; no palpable fluctuance or expressible drainage), No systolic murmur Extremities: No inflammation Abdomen: non-tender, No distended Skin: No rash, No embolic lesions - Line/s RUE PICC Lines: No drainage, No erythema - Time Spent With Patient Time Spent with Patient: greater than 35 minutes Time Spent with Patient: Greater than 35 minutes spent on this patients care, greater than 50% of time spent counseling, educating, and coordinating care regarding the above mentioned plan. ICD10 Worksheet Patient Problems: Problems Problem Status Onset Dehydration Acute Fever Acute Tachycardia Acute Neutropenic fever Acute
[2017-12-14] MEDS: ENOXAPARIN 100 MG/ML SYR SC SCH ×2 (11:40→21:30)
--- NOTE | 2017-12-14 16:02 | HOSPPROG ---
Hospitalist Progress Note Assessment/Plan: * Recurrent MSSA bacteremia -IV Nafcillin -suspect septic thrombophlebitis as source of recurrent infection -check MITCH in am * Septic thrombophlebitis - at site of recent infected port removal -Lovenox * Recurrent rhabdomyosarcoma -tx at [facility] * Recent port infection with abscess s/p removal/I&D -wound care -US negative for residual abscess * DM 1 -insulin pump Subjective: no new complaints Objective: Vital Signs Temp Pulse Resp BP Pulse Ox 36.4 C 86 16 118/79 96 12/14/17 15:44 12/14/17 15:44 12/14/17 15:44 12/14/17 15:44 12/14/17 15:44 Microbiology 12/12/17 14:40 Urine Culture - Final Urine,Clean Catch 12/12/17 08:42 Gastrointestinal Tract Panel (PCR) - Final Stool No Organism Detected Laboratory Results 12/14/17 05:55 12/12/17 05:05 12/13/17 12/14/17 12/15/17 05:59 05:59 05:59 Intake Total 1610 420 Output Total 400 1600 Balance 1210 -1180 PT 15.9 SEC (12.0-15.0) H 12/11/17 22:25 INR 1.25 (0.83-1.16) H 12/11/17 22:[address] Kohli regarding treatment plan - Physical Exam Constitutional: no apparent distress, appears nourished, not in pain Cardiovascular: regular rate and rhythym, no murmur, rub, or gallop Respiratory: no respiratory distress, no rales or rhonchi, clear to auscultation Gastrointestinal: normoactive bowel sounds, soft, non-tender abdomen, no palpable masses Skin: no rashes or abrasions, no fluctuance, no induration Neurologic: AAOx3, sensation intact bilaterally Psychiatric: interacting appropriately, not anxious, not encephalopathic, thought process linear ICD10 Worksheet Patient Problems: Problems Problem Status Onset Dehydration Acute Fever Acute Tachycardia Acute Neutropenic fever Acute
--- NOTE | 2017-12-14 16:49 | SOAPPROG ---
SOAP Progress Note Assessment/Plan: A/P: * MSSA bacteremia, prior port infection. - IV abx * Likely septic thrombophlebitis RIJ (central line associated). 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 - counts adequate - followed by Dr. Roth at [facility] 12/14/17 16:47 Subjective: No concerns. Prior PICC site nontender. Mother present. O: VS reviewed. Gen: NAD, A&O, alopecia. Lungs: breathing comfortably. Skin: RUE PICC site and prior R port site dressed. Laboratory Tests 12/14/17 05:55 WBC 4.23 Hgb 9.4 L Plt Count 378 Absolute Seg Neuts 3.15 Objective: Vital Signs Temp Pulse Resp BP Pulse Ox 36.4 C 86 16 118/79 96 12/14/17 15:44 12/14/17 15:44 12/14/17 15:44 12/14/17 15:44 12/14/17 15:44 Microbiology 12/12/17 14:40 Urine Culture - Final Urine,Clean Catch 12/12/17 08:42 Gastrointestinal Tract Panel (PCR) - Final Stool No Organism Detected Laboratory Results 12/14/17 05:55 12/12/17 05:05 12/13/17 12/14/17 12/15/17 05:59 05:59 05:59 Intake Total 1610 420 Output Total 400 1600 Balance 1210 -1180 PT 15.9 SEC (12.0-15.0) H 12/11/17 22:25 INR 1.25 (0.83-1.16) H 12/11/17 22:25 ICD10 Worksheet Patient Problems: Problems Problem Status Onset Dehydration Acute Fever Acute Tachycardia Acute Neutropenic fever Acute
[2017-12-14] MEDS ORDERED: NS 1,000 ML IV ONE (16:54)
[2017-12-14] MEDS: LORazepam 1 MG TAB PO PRN (21:30)
[2017-12-14] MEDS: Norgestrel-Ethinyl Estradiol [Low-Ogestrel-28 Tablet] 1 EACH PO SCH (21:31)
[2017-12-14] MEDS: MELATONIN 3 MG TAB PO SCH (21:31)
[2017-12-14] MEDS: CITALOPRAM 20 MG TAB PO SCH (21:31)
[2017-12-15] MEDS: NAFCILLIN SODIUM 2 GM in D5W 100 ML IV SCH ×6 (02:06→21:29)
[2017-12-15] MEDS ORDERED: NS 1,000 ML IV ONE (06:00)
[2017-12-15] MEDS: LEVOTHYROXINE 125 MCG TAB PO SCH (06:04)
[2017-12-15] MEDS: LIOTHYRONINE SODIUM 5 MCG TAB PO SCH (06:04)
[2017-12-15] MEDS ORDERED: MIDAZOLAM 2 MG/2 ML VIAL ONE (07:59)
[2017-12-15] MEDS ORDERED: fentaNYL 100 MCG/2 ML INJ ONE (08:00)
--- NOTE | 2017-12-15 08:49 | PDHPUP ---
History & Physical Update H&P update statement: This history and physical update is based on an assessment of the patient which was completed after admission or registration (within 24 hours), but prior to the surgery/procedure. H&P update: H&P reviewed & patient examined, no change in patient's condition since H&P completed H&P changes: Cardiology is looking for either/or thrombus or vegetation
--- NOTE | 2017-12-15 09:30 | PDCARTEE ---
CAR MITCH CAR MITCH: PROCEDURE: MITCH INDICATION: Assessment for thrombus and/or vegetation DETAILS: Patient was positioned on gurney in the left lateral position to facilitate ease of MITCH probe placement. Standard views were obtained and preliminary report as below: (1) Normal LVEF (2) Normal wall motion (3) No LVH (4) Normal atrial dimensions (5) Trivial MR (6) Trileaflet aortic valve without sclerosis or insufficiency (7) Grossly normal tricuspid valve (8) Grossly normal pulmonic valve (9) No thrombus to the SABI (10) No "smoke" in atria (11) Bubble contrast injection without right to left passage (12) No vegetations were appreciated No complications Patient tolerated the procedure well
[2017-12-15] MEDS: ENOXAPARIN 100 MG/ML SYR SC SCH ×2 (10:28→21:26)
--- NOTE | 2017-12-15 11:50 | PCMIDPN ---
Assessment/Plan: Assessment/Plan: * Fever with recurrent MSSA bacteremia: MITCH without evidence of vegetation or significant valvular dysfunction. Repeat blood cultures pending to assess for clearing of bacteremia. Plan repeat ultrasound of right IJ/innominate tomorrow to assess for any clot propagation/extension. Continue nafcillin. Hold off on new PICC line until bacteremia clears. * Diarrhea: Resolved. Clinical findings and plan discussed with patient and father as well as nursing staff. 12/15/17 11:46 Subjective: Patient tired after MITCH. No recurrent diarrhea. Neck and chest wall tenderness resolved. PICC line removed yesterday with peripheral IV in place. Objective: Vital Signs Temp Pulse Resp BP Pulse Ox 36.5 C 76 16 98/53 L 96 12/15/17 11:04 12/15/17 11:04 12/15/17 11:04 12/15/17 11:04 12/15/17 11:04 Microbiology 12/12/17 14:40 Urine Culture - Final Urine,Clean Catch Laboratory Results 12/14/17 05:55 12/15/17 10:37 12/14/17 12/15/17 12/16/17 05:59 05:59 05:59 Intake Total 420 350 Output Total 1600 Balance -1180 350 Nafcillin # 3 Blood cultures 12/11/2017 2/2 MSSA, 1/2 sets gram-positive kyle not further identified by BCID Blood cultures 12/13/2017 1/2 sets MSSA Blood cultures 12/15/2017 pending MITCH no vegetation, no significant valve dysfunction - Physical Exam General Appearance: alert, no apparent distress, non-toxic EENT: No scleral icterus, No thrush, No conjunctival petechiae Respiratory: lungs clear, No respiratory distress Cardiac/Chest: regular rate, rhythm, other (Chest wall and right anterior neck without residual erythema, tenderness, induration or fluctuance), No systolic murmur Extremities: No inflammation Abdomen: non-tender, No distended Skin: No embolic lesions ICD10 Worksheet Patient Problems: Problems Problem Status Onset Dehydration Acute Fever Acute Tachycardia Acute Neutropenic fever Acute
--- NOTE | 2017-12-15 13:53 | SOAPPROG ---
SOAP Progress Note Assessment/Plan: Assessment: SOAP Progress Note Assessment/Plan: A/P: * MSSA bacteremia, prior port infection. - IV abx * Likely septic thrombophlebitis RIJ (central line associated). 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 - counts adequate - followed by Dr. Roth at [facility]. He is aware of admission. Subjective: tired, no new symptoms Objective: Vital Signs Temp Pulse Resp BP Pulse Ox 36.6 C 77 16 103/60 96 12/15/17 11:58 12/15/17 11:58 12/15/17 11:58 12/15/17 11:58 12/15/17 11:58 Microbiology 12/12/17 14:40 Urine Culture - Final Urine,Clean Catch Laboratory Results 12/14/17 05:55 12/15/17 10:37 12/14/17 12/15/17 12/16/17 05:59 05:59 05:59 Intake Total 420 350 Output Total 1600 Balance -1180 350 PT 15.9 SEC (12.0-15.0) H 12/11/17 22:25 INR 1.25 (0.83-1.16) H 12/11/17 22:25 Physical Exam - Physical Exam General Appearance: alert, no apparent distress Neck: non-tender, supple Respiratory: lungs clear Abdomen: soft ICD10 Worksheet Patient Problems: Problems Problem Status Onset Dehydration Acute Fever Acute Tachycardia Acute Neutropenic fever Acute
--- NOTE | 2017-12-15 14:00 | ASMTCMCOM ---
CM Note CM Note Notes: CM reviewed chart for D/C planning. Pt continues with her treatment; a cardiology intervention assessed for thrombus and/or vegetation. CM will follow. D/C Plan: Anticipate home with home care. Date Signed: 12/15/2017 01:59 PM Electronically Signed By:Cary Rowley
--- NOTE | 2017-12-15 15:43 | HOSPPROG ---
Hospitalist Progress Note Assessment/Plan: * Recurrent MSSA bacteremia -IV Nafcillin -suspect septic thrombophlebitis as source of recurrent infection -MITCH negative -repeat BC pending to assess for clearance * Septic thrombophlebitis - at site of recent infected port removal -Lovenox -check repeat US * Recurrent rhabdomyosarcoma -tx at [facility] * Recent port infection with abscess s/p removal/I&D -wound care -US negative for residual abscess * DM 1 -insulin pump Subjective: no new complaints. Objective: Vital Signs Temp Pulse Resp BP Pulse Ox 36.2 C 79 16 98/76 L 98 12/15/17 15:02 12/15/17 15:02 12/15/17 15:02 12/15/17 15:02 12/15/17 15:02 Microbiology 12/12/17 14:40 Urine Culture - Final Urine,Clean Catch Laboratory Results 12/14/17 05:55 12/15/17 10:37 12/14/17 12/15/17 12/16/17 05:59 05:59 05:59 Intake Total 420 350 Output Total 1600 Balance -1180 350 PT 15.9 SEC (12.0-15.0) H 12/11/17 22:25 INR 1.25 (0.83-1.16) H 12/11/17 22:25 d/w Dr. Kohli - repeat US MITCH - negative - Physical Exam Constitutional: no apparent distress, appears nourished, not in pain Cardiovascular: regular rate and rhythym, no murmur, rub, or gallop Respiratory: no respiratory distress, no rales or rhonchi, clear to auscultation Gastrointestinal: normoactive bowel sounds, soft, non-tender abdomen, no palpable masses Skin: no rashes or abrasions, no fluctuance, no induration Neurologic: AAOx3, sensation intact bilaterally Psychiatric: interacting appropriately, not anxious, not encephalopathic, thought process linear ICD10 Worksheet Patient Problems: Problems Problem Status Onset Dehydration Acute Fever Acute Tachycardia Acute Neutropenic fever Acute
[2017-12-15] MEDS: Norgestrel-Ethinyl Estradiol [Low-Ogestrel-28 Tablet] 1 EACH PO SCH (21:25)
[2017-12-15] MEDS: MELATONIN 3 MG TAB PO SCH (21:25)
[2017-12-15] MEDS: CITALOPRAM 20 MG TAB PO SCH (21:26)
[2017-12-16] MEDS: NAFCILLIN SODIUM 2 GM in D5W 100 ML IV SCH ×6 (01:51→21:28)
[2017-12-16] MEDS: LEVOTHYROXINE 125 MCG TAB PO SCH (05:36)
[2017-12-16] MEDS: LIOTHYRONINE SODIUM 5 MCG TAB PO SCH (05:37)
[2017-12-16] MEDS: ENOXAPARIN 100 MG/ML SYR SC SCH ×2 (09:55→21:28)
--- NOTE | 2017-12-16 10:08 | WOCRNPDOC ---
GHAN[facility] Advanced Assessment Note - Skin Integrity Problem, Advanced Assess Right Chest Surgical Wound/Incision Dressing Type: Allevyn Life, Packing (cutimed) Dressing Description: Clean/Dry, Intact Exudate Amount: Minimal Exudate Color: Reddish/Yellow Exudate Characteristic(s): Serosanguinous Integumentary Issue Intervention: Visualized Under Dressing Amy Wound Tissue: Blanching Wound Bed Color: Red Wound Bed Constitution: Granulation Tissue (50%), Red/[place] - Non Granular Tissue (50%), Tunneling (12 to 2 o'clock, 4cm) Wound Edges: Attached, Not Attached (12-2 o'clock) Site Odor: None Site Measurement - Head-to-Toe Length X Width X Depth (cm): 1x2.5x0.3 Skin Integrity Problem Comment: Wound cleansed with NS. Tunneling at 12 o'clock to 4 cm and decreasing to 3cm at 2 o'clock. Spoke with Cornelia WILKINSON in room and let her know that wound care wound send down more Cutimed packing and that the patient only had an Allevyn covering the wound when wound care left the room. Wound care will round again next week.
--- NOTE | 2017-12-16 10:48 | ASMTCMCOM ---
CM Note CM Note Notes: Pt is current with [facility] for IV ABX as well as [facility] for RN. Pt's PICC removed due to infection. It will be replaced once bacteremia clears. [facility] will need the new PICC line report. CM to follow. Date Signed: 12/16/2017 10:47 AM Electronically Signed By:Toshia Sommer LCSW
--- NOTE | 2017-12-16 13:17 | PCMIDPN ---
Assessment/Plan: Assessment: MSSA bacteremia after drainage of a port site abscess. Patient developed recurrent bacteremia while on cefazolin. Patient was changed to IV nafcillin. Transesophageal echocardiogram did not reveal any signs of vegetation. Blood cultures from yesterday are not growing Staph aureus currently. Patient is resting comfortably. Ultrasound of the jugular area revealed a probable septic thrombosis earlier. Plan: 1. Continue IV nafcillin. 2. Continue Lovenox. 3. Follow up on repeat blood cultures. 12/16/17 12:58 12/16/17 13:17 Subjective: Patient is resting soundly in her bed. Her mother is in her room. States she is doing somewhat better. No new issues. Objective: Nafcillin # 4 Vital Signs Temp Pulse Resp BP Pulse Ox 36.8 C 85 16 99/59 L 96 12/16/17 08:30 12/16/17 08:30 12/16/17 08:30 12/16/17 08:30 12/16/17 08:30 Laboratory Results 12/14/17 05:55 12/15/17 10:37 12/15/17 12/16/17 12/17/17 05:59 05:59 05:59 Intake Total 350 2588 200 Balance 350 2588 200 - Physical Exam General Appearance: WD/WN, no apparent distress, non-toxic Respiratory: lungs clear, No respiratory distress Cardiac/Chest: regular rate, rhythm, No tachycardia Skin: normal color, warm/dry, No rash ICD10 Worksheet Patient Problems: Problems Problem Status Onset Dehydration Acute Fever Acute Tachycardia Acute Neutropenic fever Acute
--- NOTE | 2017-12-16 17:03 | SOAPPROG ---
SOAP Progress Note Assessment/Plan: A/P: * MSSA bacteremia, prior port infection. - IV abx * Likely septic thrombophlebitis RIJ (central line associated). 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 - counts adequate - followed by Dr. Roth at [facility] 12/16/17 17:02 Subjective: Pt not in room. O: VS reviewed. Laboratory Tests 12/14/17 05:55 WBC 4.23 Hgb 9.4 L Plt Count 378 Seg Neutrophils % 74.5 Band Neutrophils % 0 Absolute Seg Neuts 3.15 Repeat upper extremity ultrasound - improved. Objective: Vital Signs Temp Pulse Resp BP Pulse Ox 36.8 C 85 16 99/59 L 96 12/16/17 08:30 12/16/17 08:30 12/16/17 08:30 12/16/17 08:30 12/16/17 08:30 Laboratory Results 12/14/17 05:55 12/15/17 10:37 12/15/17 12/16/17 12/17/17 05:59 05:59 05:59 Intake Total 350 2588 200 Balance 350 2588 200 PT 15.9 SEC (12.0-15.0) H 12/11/17 22:25 INR 1.25 (0.83-1.16) H 12/11/17 22:25 ICD10 Worksheet Patient Problems: Problems Problem Status Onset Dehydration Acute Fever Acute Tachycardia Acute Neutropenic fever Acute
--- NOTE | 2017-12-16 17:06 | HOSPPROG ---
Hospitalist Progress Note Assessment/Plan: * Recurrent MSSA bacteremia -IV Nafcillin -suspect septic thrombophlebitis as source of recurrent infection -MITCH negative -repeat BC pending to assess for clearance * Septic thrombophlebitis - at site of recent infected port removal -Lovenox * Recurrent rhabdomyosarcoma -tx at [facility] * Recent port infection with abscess s/p removal/I&D -wound care -US negative for residual abscess * DM 1 -insulin pump Subjective: No new complaints. Objective: Vital Signs Temp Pulse Resp BP Pulse Ox 36.8 C 85 16 99/59 L 96 12/16/17 08:30 12/16/17 08:30 12/16/17 08:30 12/16/17 08:30 12/16/17 08:30 Laboratory Results 12/14/17 05:55 12/15/17 10:37 12/15/17 12/16/17 12/17/17 05:59 05:59 05:59 Intake Total 350 2588 200 Balance 350 2588 200 PT 15.9 SEC (12.0-15.0) H 12/11/17 22:25 INR 1.25 (0.83-1.16) H 12/11/17 22:25 US - clot same to improved - Physical Exam Constitutional: no apparent distress, appears nourished, not in pain Cardiovascular: regular rate and rhythym, no murmur, rub, or gallop Respiratory: no respiratory distress, no rales or rhonchi, clear to auscultation Gastrointestinal: normoactive bowel sounds, soft, non-tender abdomen, no palpable masses Skin: no rashes or abrasions, no fluctuance, no induration Neurologic: AAOx3, sensation intact bilaterally Psychiatric: interacting appropriately, not anxious, not encephalopathic, thought process linear ICD10 Worksheet Patient Problems: Problems Problem Status Onset Dehydration Acute Fever Acute Tachycardia Acute Neutropenic fever Acute
[2017-12-16] MEDS: CITALOPRAM 20 MG TAB PO SCH (21:28)
[2017-12-16] MEDS: MELATONIN 3 MG TAB PO SCH (21:28)
[2017-12-16] MEDS: Norgestrel-Ethinyl Estradiol [Low-Ogestrel-28 Tablet] 1 EACH PO SCH (21:28)
[2017-12-17] MEDS: NAFCILLIN SODIUM 2 GM in D5W 100 ML IV SCH ×6 (01:41→22:15)
[2017-12-17] MEDS: LEVOTHYROXINE 125 MCG TAB PO SCH (05:33)
[2017-12-17] MEDS: LIOTHYRONINE SODIUM 5 MCG TAB PO SCH (05:33)
[2017-12-17] MEDS: ENOXAPARIN 100 MG/ML SYR SC SCH ×2 (10:00→21:22)
--- NOTE | 2017-12-17 12:11 | SOAPPROG ---
SOAP Progress Note Assessment/Plan: Assessment: 1. Recurrent rhabdomyosarcoma 2. MSSA sepsis 3. R IJ septic thrombophlebitis Persistent +BCx despite antibiotic therapy. Plan: - continue abx; appreciate ID recs - continue lovenox to help resolve thrombophlebitis - no further chemo until this is resolved. She is followed at [facility]. 12/17/17 12:10 Subjective: feeling physically well but bored. Objective: exam: NAD Lungs CTAB cV RRR no MGr Abd: +BS NT ND Ext: no edema Vital Signs Temp Pulse Resp BP Pulse Ox 36.6 C 86 15 128/93 H 96 12/17/17 11:16 12/17/17 11:16 12/17/17 11:16 12/17/17 11:16 12/17/17 11:16 Laboratory Results 12/14/17 05:55 12/15/17 10:37 12/16/17 12/17/17 12/18/17 05:59 05:59 05:59 Intake Total 2588 1628 Balance 2588 1628 PT 15.9 SEC (12.0-15.0) H 12/11/17 22:25 INR 1.25 (0.83-1.16) H 12/11/17 22:25 ICD10 Worksheet Patient Problems: Problems Problem Status Onset Dehydration Acute Fever Acute Tachycardia Acute Neutropenic fever Acute
--- NOTE | 2017-12-17 14:28 | PCMIDPN ---
Assessment/Plan: Assessment: MSSA bacteremia after drainage of a port site abscess. Patient developed recurrent bacteremia while on cefazolin. Patient was changed to IV nafcillin. Transesophageal echocardiogram did not reveal any signs of vegetation. Blood cultures from 12/15 are now growing Staph aureus again. Clinically however the patient feels well. Ultrasound of the jugular area revealed a probable septic thrombosis earlier in her stay and she has been receiving anticoagulation with Lovenox plus the antibiotic for the last few days. I am somewhat concerned that she continues to be bacteremic. We will repeat blood cultures today. In preparation for the possibility that the hypothetically infected clot may not be the cause of persistent bacteremia, will obtain a CT scan with contrast of her chest abdomen and pelvis. Plan: 1. Continue IV nafcillin. 2. Continue Lovenox. 3. Repeat blood cultures. 4. CT scan with contrast of chest abdomen and pelvis. Subjective: Patient is sitting up in her chair. Her mother is present in the room as well. Patient relates that she feels pretty well. Denies any new complaint. Denies any pain at the former port site. Denies any fevers or chills. Objective: Nafcillin # 5 Vital Signs Temp Pulse Resp BP Pulse Ox 36.6 C 86 15 128/93 H 96 12/17/17 11:16 12/17/17 11:16 12/17/17 11:16 12/17/17 11:16 12/17/17 11:16 Laboratory Results 12/14/17 05:55 12/15/17 10:37 12/16/17 12/17/17 12/18/17 05:59 05:59 05:59 Intake Total 2588 1628 Balance 2588 1628 - Physical Exam General Appearance: WD/WN, alert, no apparent distress, non-toxic Respiratory: lungs clear, normal breath sounds, No respiratory distress Cardiac/Chest: regular rate, rhythm, No tachycardia Extremities: non-tender, normal inspection Skin: normal color, warm/dry, No rash Neuro/Psych: alert, normal mood/affect, oriented x 3 ICD10 Worksheet Patient Problems: Problems Problem Status Onset Dehydration Acute Fever Acute Tachycardia Acute Neutropenic fever Acute
--- NOTE | 2017-12-17 16:38 | HOSPPROG ---
Hospitalist Progress Note Assessment/Plan: Assessment: 27-year-old female presents with recurrent MSSA bacteremia secondary to suspected septic thrombophlebitis Plan: * Recurrent MSSA bacteremia. 12/15 BCx remain positive, unclear whether 2/2 suspected septic thrombophlebitis as source vs. other cause -d/w Dr. Jo, he recommends CT of c/a/p to further evaluate as well as repeat BCx now -cont IV Nafcillin -MITCH negative * Septic thrombophlebitis. Suspected, at site of recent infected port removal, repeat US demonstrating interval improvement in R innominate v. w/ partial occlusion, no change in distal R IJ, other veins clear of clot -cont therapeutic Lovenox * Recurrent rhabdomyosarcoma -tx at [facility], patient and mother anticipating restarting tx once infxn cleared * Recent port infection with abscess s/p removal/I&D -wound care -US negative for residual abscess, CXR w/o air space disease (personally interpreted) * DM 1 w/ hyperglycemia. Cont home insulin pump Diet. Regular PPx. High risk, therapeutic lovenox Code. Full Dispo. ADD uncertain, pending clearance of bacteremia Subjective: patient's energy improved, ambulating Objective: Vital Signs Temp Pulse Resp BP Pulse Ox 36.6 C 86 15 128/93 H 96 12/17/17 11:16 12/17/17 11:16 12/17/17 11:16 12/17/17 11:16 12/17/17 11:16 Laboratory Results 12/14/17 05:55 12/15/17 10:37 12/16/17 12/17/17 12/18/17 05:59 05:59 05:59 Intake Total 2588 1628 Balance 2588 1628 PT 15.9 SEC (12.0-15.0) H 12/11/17 22:25 INR 1.25 (0.83-1.16) H 12/11/17 22:25 - Physical Exam Constitutional: no apparent distress, not in pain, chronically ill appearing, No uncomfortable Cardiovascular: regular rate and rhythym, no murmur, rub, or gallop, No edema Respiratory: no respiratory distress, no rales or rhonchi, clear to auscultation Gastrointestinal: normoactive bowel sounds, soft, non-tender abdomen, no palpable masses, No distension Skin: other (firm, mildly tender area R lower neck w/o erythema/induration/ fluctuance) Neurologic: AAOx3 Psychiatric: interacting appropriately, not anxious, not encephalopathic, thought process linear ICD10 Worksheet Patient Problems: Problems Problem Status Onset Dehydration Acute Fever Acute Tachycardia Acute Neutropenic fever Acute
[2017-12-17] MEDS ORDERED: IOPAMIDOL (ISOVUE-300) 100 ML BTL ONE (16:39)
[2017-12-17] MEDS: MELATONIN 3 MG TAB PO SCH (21:23)
[2017-12-17] MEDS: Norgestrel-Ethinyl Estradiol [Low-Ogestrel-28 Tablet] 1 EACH PO SCH (21:23)
[2017-12-17] MEDS: CITALOPRAM 20 MG TAB PO SCH (21:23)
[2017-12-18] MEDS: NAFCILLIN SODIUM 2 GM in D5W 100 ML IV SCH ×6 (02:00→21:33)
[2017-12-18 04:43] LABS: PLATELET COUNT 376 10^3/uL (150-400)
[2017-12-18] MEDS: LIOTHYRONINE SODIUM 5 MCG TAB PO SCH (06:09)
[2017-12-18] MEDS: LEVOTHYROXINE 125 MCG TAB PO SCH (06:09)
[2017-12-18] MEDS: ENOXAPARIN 100 MG/ML SYR SC SCH ×2 (10:08→21:33)
--- NOTE | 2017-12-18 12:26 | PCMIDPN ---
Assessment/Plan: 1. History of fever with recurrent MSSA bacteremia: Patient remains bacteremic. CT scans of the chest/abdomen and pelvis negative for source. (I reviewed CT scans and recent ultrasound with Dr. Giovanny Kohli today ) Suspect that clots in her internal jugular and brachiocephalic veins are the culprit, and patient may need thrombectomy. Gómez has been negative. Careful physical exam today did not reveal evidence of infection elsewhere. Continue nafcillin. Case discussed with Dr. Owens, who will speak with Dr. Bales. Plan reviewed with the patient today, who will convey this to her parents who are actively involved in her care. 2. History of port infection/abscess: Port has been removed. The patient has a peripheral IV in place. Over 25 min spent with this patient today. 12/18/17 12:23 Subjective: Patient has multiple questions about why she continues to have bacteremia. No shaking chills. No nausea or vomiting. No pain in any of her joints or back. CT scans and recent ultrasound reviewed with Dr. Kohli. Objective: Nafcillin 2 g IV q. 4 hr day 6 No fevers Vital Signs Temp Pulse Resp BP Pulse Ox 36.8 C 78 12 114/69 95 12/18/17 07:49 12/18/17 07:49 12/18/17 07:49 12/18/17 07:49 12/18/17 07:49 Laboratory Results 12/18/17 04:14 12/18/17 04:14 12/17/17 12/18/17 12/19/17 05:59 05:59 05:59 Intake Total 1628 460 Balance 1628 460 Blood cultures 721 with gram-positive cocci in clusters 719 blood cultures with Staph aureus, methicillin-susceptible - Physical Exam General Appearance: no apparent distress, obese EENT: No scleral icterus, No thrush Respiratory: lungs clear Neck: other (Patient's right internal jugular at the base of her neck feels "tight"I touch it, but states that it is not painful, per se. No overlying skin changes.) Cardiac/Chest: regular rate, rhythm, other (Site of port removal is packed, open wound is approximately nickel sized in nature. No surrounding erythema or tenderness.) Extremities: other (Peripheral IV left arm looks fine) Abdomen: non-tender, soft Back: normal inspection, No spine tenderness Skin: No rash, No embolic lesions ICD10 Worksheet Patient Problems: Problems Problem Status Onset Dehydration Acute Fever Acute Tachycardia Acute Neutropenic fever Acute
--- NOTE | 2017-12-18 13:23 | HOSPPROG ---
Hospitalist Progress Note Assessment/Plan: Assessment: 27-year-old female presents with recurrent MSSA bacteremia secondary to suspected septic thrombophlebitis Plan: * Recurrent MSSA bacteremia. 12/17 BCx remain positive, suspect 2/2 septic thrombophlebitis RIJ and brachiocephalic -d/w Dr. Gr, she recommends CT Surg consultation for thrombectomy, d/w Ilsa Timmons, service will see patient -cont IV Nafcillin -MITCH negative * Septic thrombophlebitis. Suspected, at site of recent infected port removal, repeat US demonstrating interval improvement in R innominate v. w/ partial occlusion, no change in distal R IJ, other veins clear of clot -cont therapeutic Lovenox -CT surg consult for possible thrombectomy * Recurrent rhabdomyosarcoma -tx at [facility], patient and mother anticipating restarting tx once infxn cleared -patient reports tumor is in the umbilicus area, seen on CT (personally interpreted) * Recent port infection with abscess s/p removal/I&D -wound care -US negative for residual abscess * DM 1 w/ hyperglycemia. Cont home insulin pump Diet. Regular PPx. High risk, therapeutic lovenox Code. Full Dispo. ADD uncertain, pending clearance of bacteremia High level of medical complexity, high risk of worsening morbidity/mortality 2/ 2 issues outlined above Subjective: denies abd or neck pain Objective: Vital Signs Temp Pulse Resp BP Pulse Ox 36.8 C 78 12 114/69 95 12/18/17 07:49 12/18/17 07:49 12/18/17 07:49 12/18/17 07:49 12/18/17 07:49 Laboratory Results 12/18/17 04:14 12/18/17 04:14 12/17/17 12/18/17 12/19/17 05:59 05:59 05:59 Intake Total 1628 460 Balance 1628 460 PT 15.9 SEC (12.0-15.0) H 12/11/17 22:25 INR 1.25 (0.83-1.16) H 12/11/17 22:25 - Physical Exam Constitutional: no apparent distress, not in pain, chronically ill appearing, obese, No uncomfortable Cardiovascular: regular rate and rhythym, no murmur, rub, or gallop, edema ( trace bilat LE) Respiratory: no respiratory distress, no rales or rhonchi, clear to auscultation Gastrointestinal: normoactive bowel sounds, soft, non-tender abdomen, No no palpable masses (smal mass non-tender at umbilicus) Skin: other (firm but non-tender R IJ area, no erythema around port pocket, good granulation tissue under packing (removed), no pus) Neurologic: AAOx3 Psychiatric: interacting appropriately, not anxious, not encephalopathic, thought process linear ICD10 Worksheet Patient Problems: Problems Problem Status Onset Fever Acute Tachycardia Acute Dehydration Acute Neutropenic fever Acute
[2017-12-18] MEDS: LORazepam 1 MG TAB PO PRN (15:51)
[2017-12-18] MEDS: Norgestrel-Ethinyl Estradiol [Low-Ogestrel-28 Tablet] 1 EACH PO SCH (21:30)
[2017-12-18] MEDS: MELATONIN 3 MG TAB PO SCH (21:32)
[2017-12-18] MEDS: CITALOPRAM 20 MG TAB PO SCH (21:32)
[2017-12-19] MEDS: NAFCILLIN SODIUM 2 GM in D5W 100 ML IV SCH ×6 (01:35→23:08)
[2017-12-19] MEDS: LEVOTHYROXINE 125 MCG TAB PO SCH (05:46)
[2017-12-19] MEDS: LIOTHYRONINE SODIUM 5 MCG TAB PO SCH (05:46)
[2017-12-19] MEDS: ENOXAPARIN 100 MG/ML SYR SC SCH ×2 (08:21→21:22)
--- NOTE | 2017-12-19 09:29 | SOAPPROG ---
SOAP Progress Note Assessment/Plan: Assessment: 1. Recurrent rhabdomyosarcoma 2. MSSA sepsis 3. R IJ septic thrombophlebitis Persistent +BCx despite antibiotic therapy. Last positive culture 17 DECEMBER 2017. Plan: - continue abx; appreciate ID recs - continue lovenox to help resolve thrombophlebitis - no further chemo until this is resolved. She is followed at [facility]. - she is being evaluated for thrombectomy Subjective: Feels better. No rigors. C/O a few loose stools. No nausea/vomiting. No cough. She feels like her energy level is improving. Objective: Vital Signs Temp Pulse Resp BP Pulse Ox 36.9 C 75 12 112/69 96 12/19/17 08:00 12/19/17 08:00 12/19/17 08:00 12/19/17 08:00 12/19/17 08:00 Microbiology 12/13/17 09:50 Blood Culture - Final Blood Staphylococcus Aureus 12/13/17 09:55 Blood Culture - Final Blood Staphylococcus Aureus Laboratory Results 12/18/17 04:14 12/18/17 04:14 12/17/17 12/18/17 12/19/17 23:59 23:59 23:59 Intake Total 067 051 5001 Balance 332 694 2209 PT 15.9 SEC (12.0-15.0) H 12/11/17 22:25 INR 1.25 (0.83-1.16) H 12/11/17 22:25 Physical Exam - Physical Exam General Appearance: alert, no apparent distress Neck: other (minimal R neck tenderness) Respiratory: lungs clear Cardiac/Chest: regular rate, rhythm Abdomen: normal bowel sounds, non-tender, soft Skin: warm/dry, pallor Extremities: other (minimal tenderness at LUE PICC site. No erythema noted.) Neuro/Psych: alert, normal mood/affect, oriented x 3 ICD10 Worksheet Patient Problems: Problems Problem Status Onset Dehydration Acute Fever Acute Tachycardia Acute Neutropenic fever Acute
--- NOTE | 2017-12-19 14:15 | ASMTCMCOM ---
CM Note CM Note Notes: Spoke with [facility] regarding massage for patient. They have her scheduled for 4:00 PM today. CM will follow. Date Signed: 12/19/2017 02:14 PM Electronically Signed By:Mireille Carrero LCSW
--- NOTE | 2017-12-19 14:30 | PCMIDPN ---
Assessment/Plan: Assessment/Plan: * Fever with recurrent MSSA bacteremia: Persistent high-grade bacteremia despite ongoing therapy with nafcillin. MITCH does not show evidence of endocarditis and CT scan of chest, abdomen, and pelvis without focus of residual infection. Given these findings, concern that persistence of bacteremia due to septic thrombophlebitis of right IJ/ brachiocephalic vein. CT surgery consultation planned to assess for thrombectomy. Have also reviewed with interventional Radiology with plans to review images with possible thrombectomy via IR rather than surgical approach if feasible. Initial cultures also show growth of Prevotella which suspect is related to presence of IJ clot; no repeat culture showing growth of same organism so will not modify antibiotic therapy from nafcillin given this is preferred drug for persistent MSSA; if additional culture show growth of Prevotella, then would consider change to Unasyn which would have activity against both pathogens. * Diarrhea: Resolved. Clinical findings and plan discussed with patient and mother, as well as with Dr. Owens and Interventional Radiology. 12/19/17 14:26 12/19/17 14:31 Subjective: Patient without specific complaints. No significant right anterior neck or chest pain. No back pain. Objective: Vital Signs Temp Pulse Resp BP Pulse Ox 36.9 C 75 12 112/69 96 12/19/17 08:00 12/19/17 08:00 12/19/17 08:00 12/19/17 08:00 12/19/17 08:00 Microbiology 12/13/17 09:50 Blood Culture - Final Blood Staphylococcus Aureus 12/13/17 09:55 Blood Culture - Final Blood Staphylococcus Aureus Laboratory Results 12/18/17 04:14 12/18/17 04:14 12/18/17 12/19/17 12/20/17 05:59 05:59 05:59 Intake Total 460 1040 Balance 460 1040 Nafcillin # 7 Blood cultures x2 12/17/2017 1/2 sets Staph aureus - Physical Exam General Appearance: alert, no apparent distress EENT: No scleral icterus, No thrush, No conjunctival petechiae Respiratory: lungs clear, No respiratory distress Cardiac/Chest: regular rate, rhythm, other ( right anterior chest without erythema, tenderness or fluctuance; no tenderness in right anterior neck), No systolic murmur Extremities: No inflammation Abdomen: non-tender, No distended Back: No spine tenderness Skin: No embolic lesions - Time Spent With Patient Time Spent with Patient: greater than 35 minutes Time Spent with Patient: Greater than 35 minutes spent on this patients care, greater than 50% of time spent counseling, educating, and coordinating care regarding the above mentioned plan. ICD10 Worksheet Patient Problems: Problems Problem Status Onset Dehydration Acute Fever Acute Tachycardia Acute Neutropenic fever Acute
--- NOTE | 2017-12-19 15:31 | WOCRNPDOC ---
WOCRN Advanced Assessment Note - Skin Integrity Problem, Advanced Assess Right Chest Surgical Wound/Incision Dressing Type: Allevyn Life, Packing (cutimed ) Dressing Description: Clean/Dry, Intact Exudate Amount: Scant Exudate Characteristic(s): Sanguinous (on dressing ) Integumentary Issue Intervention: Dressing Changed, Dressing Initialed & Dated Wound Bed Constitution: Granulation Tissue (70%), Red/[place] - Non Granular Tissue (30%), Undermining (11-2 oclock 0.7 cm) Wound Edges: Attached, Not Attached Site Measurement - Head-to-Toe Length X Width X Depth (cm): 1x2.3x0.4 Skin Integrity Problem Comment: Less than 2 cm of packing removed from wound bed. Tunnel at 2 oclock has closed down and now measures 0.7. Flushed wound with ns. Wound gel applied to wound bed and a small amount of cutimed sorbact was placed in wound bed and small area of remaining underming to fill space. Dr. Owens updated. MINH Peters in room for all care. All patient questions answered. Wound care will round again later this week/early next week.
--- NOTE | 2017-12-19 16:34 | HOSPPROG ---
Hospitalist Progress Note Assessment/Plan: Assessment: 27-year-old female presents with recurrent MSSA bacteremia secondary to suspected septic thrombophlebitis Plan: * Recurrent MSSA bacteremia. 12/17 BCx remain positive, suspect 2/2 septic thrombophlebitis RIJ and brachiocephalic -d/w Dr. Kohli, he recommends IR lysis vs. thrombectomy depending on age of clot, IR to consult and potentially intervene tomorrow -d/w wound care, the prior port abscess pocket has closed down, now tracking only 1cm, but if IR accessing through this entry, then wound care will close it down from inside out and make sure there are no residual pockets -cont IV Nafcillin -MITCH negative * Septic thrombophlebitis. Suspected, at site of recent infected port removal, repeat US demonstrating interval improvement in R innominate v. w/ partial occlusion, no change in distal R IJ, other veins clear of clot -cont therapeutic Lovenox -d/w Dr. 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 Counseled patient regarding basal rate adjustments, agreed on 25% increase, but holding in AM if NPO for procedure Diet. Regular PPx. High risk, therapeutic lovenox Code. Full Dispo. ADD uncertain, pending clearance of bacteremia Subjective: patient w/o pain in R chest Objective: Vital Signs Temp Pulse Resp BP Pulse Ox 36.9 C 75 12 112/69 96 12/19/17 08:00 12/19/17 08:00 12/19/17 08:00 12/19/17 08:00 12/19/17 08:00 Microbiology 12/13/17 09:50 Blood Culture - Final Blood Staphylococcus Aureus 12/13/17 09:55 Blood Culture - Final Blood Staphylococcus Aureus Laboratory Results 12/18/17 04:14 12/18/17 04:14 12/18/17 12/19/17 12/20/17 05:59 05:59 05:59 Intake Total 460 1040 Balance 460 1040 PT 15.9 SEC (12.0-15.0) H 12/11/17 22:25 INR 1.25 (0.83-1.16) H 12/11/17 22:25 - Time Spent With Patient Time Spent with Patient: greater than 35 minutes Time Spent with Patient: Greater than 35 minutes spent on this patients care, greater than 50% of time spent counseling, educating, and coordinating care regarding the above mentioned plan. - Physical Exam Constitutional: no apparent distress, not in pain, obese, No uncomfortable Skin: other (R chest wound covered) Neurologic: AAOx3 Psychiatric: interacting appropriately, not anxious, not encephalopathic, thought process linear ICD10 Worksheet Patient Problems: Problems Problem Status Onset Fever Acute Tachycardia Acute Dehydration Acute Neutropenic fever Acute
[2017-12-19] MEDS: MELATONIN 3 MG TAB PO SCH (21:23)
[2017-12-19] MEDS: CITALOPRAM 20 MG TAB PO SCH (21:23)
[2017-12-19] MEDS: Norgestrel-Ethinyl Estradiol [Low-Ogestrel-28 Tablet] 1 EACH PO SCH (21:26)
[2017-12-20] MEDS: NAFCILLIN SODIUM 2 GM in D5W 100 ML IV SCH ×6 (02:43→21:13)
[2017-12-20] MEDS: LEVOTHYROXINE 125 MCG TAB PO SCH (05:24)
[2017-12-20] MEDS: LIOTHYRONINE SODIUM 5 MCG TAB PO SCH (05:25)
--- NOTE | 2017-12-20 09:41 | PCMIDPN ---
Assessment/Plan: Assessment/Plan: * Fever with recurrent MSSA bacteremia: Persistent high-grade bacteremia despite ongoing therapy with nafcillin. MITCH does not show evidence of endocarditis and CT scan of chest, abdomen, and pelvis without focus of residual infection. Primary concern for persistence is septic thrombophlebitis of right IJ/brachiocephalic associated with prior port infection. Reviewed blood cultures from 12/11/2017 with microbiology with current findings suggesting Prevotella in both sets (subsequent cultures have not grown Prevotella). Unclear if this is contributing to her ongoing persistent bacteremia with MSSA but given potential for persistent inflammation related to infection will add metronidazole as would like to continue nafcillin for her MSSA. Side effects of metronidazole including metallic taste in mouth, potential for neuropathy, and GI symptomatology discussed with patient. Interventional Radiology discussed potential IR thrombectomy with patient this a.m. and she feels she has clear understanding of procedure. She notes her parents favor her being transferred to [place] for ongoing care given her cancer care has been there. I have discussed her ongoing care with her oncologist at the [place] this a.m.. He has reviewed her findings with [facility] IR and vascular surgery noting that surgical approach felt to be difficult. Patient is going to review plans for transfer versus staying here for her ongoing care with her parents later today. Clinical findings and plan discussed with patient and treating oncologist at [facility]. 12/20/17 10:41 Subjective: Patient complains of mild right sided lateral neck pain. Objective: Vital Signs Temp Pulse Resp BP Pulse Ox 36.7 C 85 16 125/94 H 97 12/20/17 08:00 12/20/17 08:00 12/20/17 08:00 12/20/17 08:00 12/20/17 08:00 Microbiology 12/15/17 05:09 Blood Culture - Final Blood Staphylococcus Aureus 12/15/17 05:15 Blood Culture - Final Blood Staphylococcus Aureus 12/13/17 09:50 Blood Culture - Final Blood Staphylococcus Aureus 12/13/17 09:55 Blood Culture - Final Blood Staphylococcus Aureus Laboratory Results 12/18/17 04:14 12/18/17 04:14 12/19/17 12/20/17 12/21/17 05:59 05:59 05:59 Intake Total 1040 1596 Balance 1040 1596 Nafcillin # 8 Blood cultures 12/17/2017 1/2 sets MSSA Blood cultures 12/20/2017 pending - Physical Exam General Appearance: alert, no apparent distress EENT: No scleral icterus, No thrush, No conjunctival petechiae Respiratory: lungs clear, No respiratory distress Neck: other (Mild tenderness over lateral neck on right; no tenderness over cervical spine) Cardiac/Chest: regular rate, rhythm, other (No tenderness or erythema over chest wall were prior port was in place; mild induration superior to incision site) Extremities: No inflammation Abdomen: non-tender, No distended Skin: No embolic lesions - Time Spent With Patient Time Spent with Patient: greater than 35 minutes Time Spent with Patient: Greater than 35 minutes spent on this patients care, greater than 50% of time spent counseling, educating, and coordinating care regarding the above mentioned plan. ICD10 Worksheet Patient Problems: Problems Problem Status Onset Dehydration Acute Fever Acute Tachycardia Acute Neutropenic fever Acute
[2017-12-20] MEDS: metroNIDAZOLE 500 MG TAB PO SCH ×3 (09:56→21:10)
[2017-12-20] MEDS: ENOXAPARIN 100 MG/ML SYR SC SCH ×2 (09:56→23:54)
[2017-12-20] MEDS ORDERED: PROMETHAZINE HCL 25 MG TAB PO PRN (12:41)
[2017-12-20] MEDS ORDERED: LORazepam 2 MG/ML INJ IVP ONE (12:42)
--- NOTE | 2017-12-20 12:42 | SOAPPROG ---
SOAP Progress Note Assessment/Plan: Assessment: 1. Recurrent rhabdomyosarcoma 2. MSSA sepsis 3. R IJ septic thrombophlebitis Patient has blood cultures pending from today. She will be getting a thrombectomy in IR today about 1PM. She is not neutropenic. Plt count is normal. Plan: - continue abx; appreciate ID recs - no further chemo until this is resolved. She is followed at [facility]. - she is scheduled for thrombectomy today. Subjective: Looking forward to thrombectomy today. Objective: Vital Signs Temp Pulse Resp BP Pulse Ox 36.9 C 74 16 134/102 H 100 12/20/17 12:24 12/20/17 12:24 12/20/17 12:24 12/20/17 12:24 12/20/17 12:24 Microbiology 12/15/17 05:09 Blood Culture - Final Blood Staphylococcus Aureus 12/15/17 05:15 Blood Culture - Final Blood Staphylococcus Aureus 12/13/17 09:50 Blood Culture - Final Blood Staphylococcus Aureus 12/13/17 09:55 Blood Culture - Final Blood Staphylococcus Aureus Laboratory Results 12/18/17 04:14 12/18/17 04:14 12/18/17 12/19/17 12/20/17 23:59 23:59 23:59 Intake Total 355 1540 1096 Balance 355 1540 1096 PT 15.9 SEC (12.0-15.0) H 12/11/17 22:25 INR 1.25 (0.83-1.16) H 12/11/17 22:25 Physical Exam - Physical Exam General Appearance: alert, no apparent distress Respiratory: lungs clear Cardiac/Chest: regular rate, rhythm Abdomen: normal bowel sounds Skin: pallor Neuro/Psych: alert, normal mood/affect, oriented x 3 ICD10 Worksheet Patient Problems: Problems Problem Status Onset Dehydration Acute Fever Acute Tachycardia Acute Neutropenic fever Acute
[2017-12-20] MEDS ORDERED: NALOXONE HCL 0.4 MG/ML INJ IVP PRN (13:16)
[2017-12-20] MEDS ORDERED: fentaNYL 100 MCG/2 ML INJ IVP PRN (13:16)
[2017-12-20] MEDS ORDERED: MEPERIDINE 25 MG/ML SYR IVP PRN (13:16)
[2017-12-20] MEDS ORDERED: NALOXONE HCL 0.4 MG/ML INJ ONE (13:21)
--- NOTE | 2017-12-20 13:21 | PDHPUP ---
History & Physical Update H&P update statement: This history and physical update is based on an assessment of the patient which was completed after admission or registration (within 24 hours), but prior to the surgery/procedure. Persistent positive blood cultures and risk of sepsis from infected thombus right IJ/brachiocephalic vein despite conservative management. H&P update: H&P reviewed & patient examined, no change in patient's condition since H&P completed
[2017-12-20] MEDS ORDERED: fentaNYL 100 MCG/2 ML INJ ONE (13:22)
[2017-12-20] MEDS ORDERED: NS 1,000 ML IV SCH (13:30)
--- NOTE | 2017-12-20 13:43 | ASMTCMCOM ---
CM Note CM Note Notes: Patient to IR today for thrombectomy. Discharge plan remains home with [facility] and [facility] for infusion services. Case Management will follow. Date Signed: 12/20/2017 01:42 PM Electronically Signed By:Tressa Ulloa RN
[2017-12-20] MEDS ORDERED: IOPAMIDOL (ISOVUE-300) 100 ML BTL ONE (14:39)
--- NOTE | 2017-12-20 14:39 | PDRADPN ---
Radiology Procedure Note Date of Procedure: 12/20/17 Radiologist: Ludin River Anesthesia: Local (Specify) Pre-op Diagnosis: Infected IJ thrombus Post-op Diagnosis: Infected IJ thrombus Indication: Persistent + blood cultures at risk for sepsis Procedure: Thrombectomy Finding(s): Chronic clot adherent to vessel wall difficult for thrombectomy device to aspirate. Small amount of clot retreived and sent to micro for analysis. 300 mL total thrombectomy volume. Inf/Abcess present in the surg proc area at time of surgery?: Yes Depth: Organ Space (+ blood cultures)
[2017-12-20] MEDS ORDERED: PROMETHAZINE HCL 25 MG/ML INJ ONE (14:59)
[2017-12-20] MEDS: PROMETHAZINE HCL 25 MG/ML INJ IVP PRN (14:59)
--- NOTE | 2017-12-20 15:37 | HOSPPROG ---
Hospitalist Progress Note Assessment/Plan: Assessment: 27-year-old female presents with recurrent MSSA bacteremia secondary to suspected septic thrombophlebitis Plan: * Recurrent MSSA bacteremia. 12/17 BCx remain positive, suspect 2/2 septic thrombophlebitis RIJ and brachiocephalic -d/w Dr. Kohli, he reports patient considering [facility] vs. Dr. River IR here -d/w patient/mother, she has elected to proceed w/ IR thrombectomy, and we will provide IV ativan prior to procedure -cont IV Nafcillin -MITCH negative * Septic thrombophlebitis. Suspected, at site of recent infected port removal, repeat US demonstrating interval improvement in R innominate v. 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 Counseled patient regarding basal rate adjustments, agreed on 25% increase -FG 120 Diet. Regular PPx. High risk, therapeutic lovenox Code. Full Dispo. ADD uncertain, pending clearance of bacteremia High level of medical complexity, high risk for worsening morbidity 2/2 issues outlined above. Subjective: mild swelling LUE distally Objective: Vital Signs Temp Pulse Resp BP Pulse Ox 36.9 C 72 14 117/71 100 12/20/17 15:03 12/20/17 15:03 12/20/17 15:03 12/20/17 15:03 12/20/17 15:03 Microbiology 12/15/17 05:09 Blood Culture - Final Blood Staphylococcus Aureus 12/15/17 05:15 Blood Culture - Final Blood Staphylococcus Aureus Laboratory Results 12/18/17 04:14 12/18/17 04:14 12/19/17 12/20/17 12/21/17 05:59 05:59 05:59 Intake Total 1040 1596 300 Output Total 300 Balance 1040 1596 0 PT 15.9 SEC (12.0-15.0) H 12/11/17 22:25 INR 1.25 (0.83-1.16) H 12/11/17 22:25 - Physical Exam Constitutional: no apparent distress, not in pain, chronically ill appearing, obese, No uncomfortable Cardiovascular: regular rate and rhythym, no murmur, rub, or gallop, edema ( mild soft tissue LUE dorsum of hand at prior IV site) Respiratory: no respiratory distress, no rales or rhonchi, clear to auscultation Gastrointestinal: normoactive bowel sounds, soft, non-tender abdomen, no palpable masses, No distension Skin: other (no erythema around prior port site) Neurologic: AAOx3 Psychiatric: interacting appropriately, not anxious, not encephalopathic, thought process linear ICD10 Worksheet Patient Problems: Problems Problem Status Onset Fever Acute Tachycardia Acute Dehydration Acute Neutropenic fever Acute
[2017-12-20] MEDS: CITALOPRAM 20 MG TAB PO SCH (21:10)
[2017-12-20] MEDS: MELATONIN 3 MG TAB PO SCH (21:10)
[2017-12-20] MEDS: Norgestrel-Ethinyl Estradiol [Low-Ogestrel-28 Tablet] 1 EACH PO SCH (21:11)
[2017-12-21] MEDS: NAFCILLIN SODIUM 2 GM in D5W 100 ML IV SCH ×6 (02:10→21:41)
[2017-12-21] MEDS: LEVOTHYROXINE 125 MCG TAB PO SCH (05:50)
[2017-12-21] MEDS: LIOTHYRONINE SODIUM 5 MCG TAB PO SCH (05:50)
[2017-12-21 06:05] LABS: PLATELET COUNT 316 10^3/uL (150-400)
--- NOTE | 2017-12-21 09:36 | PCMIDPN ---
Assessment/Plan: Assessment/Plan: * Fever with recurrent MSSA bacteremia: Patient status post thrombectomy yesterday with only partial clot removal due to portion of clot being adherent to vessel wall. Interventional findings reviewed with Dr. River yesterday. Repeat blood cultures from 12/20/2017 are no growth to date. Plan additional repeat blood cultures tomorrow as the blood cultures from 12/20/2017 are prior to thrombectomy. Continue nafcillin and metronidazole which was added for activity against Prevotella - blood cultures from 12/11/2017 2nd set with gram- positive kyle which has not been further identified in lab and not clear that this also represents Prevotella. She is tolerating metronidazole well to date. 12/21/17 09:32 12/21/17 09:39 Subjective: Patient without specific complaints. Neck pain that was present laterally yesterday has resolved. IR findings from yesterday noted. Objective: Vital Signs Temp Pulse Resp BP Pulse Ox 36.3 C 83 16 126/88 H 98 12/21/17 08:48 12/21/17 08:48 12/21/17 08:48 12/21/17 08:48 12/21/17 08:48 Microbiology 12/20/17 14:39 Gram Stain - Final Other - Aspirate 12/15/17 05:09 Blood Culture - Final Blood Staphylococcus Aureus 12/15/17 05:15 Blood Culture - Final Blood Staphylococcus Aureus Laboratory Results 12/21/17 06:00 12/21/17 06:00 12/20/17 12/21/17 12/22/17 05:59 05:59 05:59 Intake Total 1596 1600 Output Total 1050 Balance 1596 550 Nafcillin # 9 Metronidazole # 1 Blood cultures 12/20/2017 no growth to date Thrombus Gram stain no organisms, culture pending Venogram findings reviewed - Physical Exam General Appearance: alert, no apparent distress EENT: No scleral icterus, No conjunctival petechiae Respiratory: lungs clear, No respiratory distress Neck: other (No tenderness palpation over lateral neck or anterior neck) Cardiac/Chest: regular rate, rhythm, other (Chest wall nontender without erythema; some superficial desquamation of skin consistent with resolving skin soft tissue infection), No systolic murmur Abdomen: non-tender, No distended Skin: No rash, No embolic lesions ICD10 Worksheet Patient Problems: Problems Problem Status Onset Dehydration Acute Fever Acute Tachycardia Acute Neutropenic fever Acute
[2017-12-21] MEDS: metroNIDAZOLE 500 MG TAB PO SCH ×3 (10:01→21:42)
[2017-12-21] MEDS: ENOXAPARIN 100 MG/ML SYR SC SCH ×2 (10:01→21:42)
--- NOTE | 2017-12-21 10:51 | SOAPPROG ---
SOAP Progress Note Assessment/Plan: Assessment: 1. Recurrent rhabdomyosarcoma 2. MSSA sepsis 3. R IJ septic thrombophlebitis Cultures negative from 20 DECEMBER so far. S/P partial thrombectomy yesterday. Gram stain negative for organisms but lots fo PMNs Plan: - continue abx; appreciate ID recs - no further chemo until this is resolved. She is followed at [facility]. - will continue to follow with you Objective: Vital Signs Temp Pulse Resp BP Pulse Ox 36.3 C 83 16 126/88 H 98 12/21/17 08:48 12/21/17 08:48 12/21/17 08:48 12/21/17 08:48 12/21/17 08:48 Microbiology 12/20/17 14:39 Gram Stain - Final Other - Aspirate 12/15/17 05:09 Blood Culture - Final Blood Staphylococcus Aureus 12/15/17 05:15 Blood Culture - Final Blood Staphylococcus Aureus Laboratory Results 12/21/17 06:00 12/21/17 06:00 12/19/17 12/20/17 12/21/17 23:59 23:59 23:59 Intake Total 1540 1696 1000 Output Total 300 750 Balance 1540 1396 250 PT 15.9 SEC (12.0-15.0) H 12/11/17 22:25 INR 1.25 (0.83-1.16) H 12/11/17 22:25 Physical Exam - Physical Exam General Appearance: alert, no apparent distress Respiratory: lungs clear Cardiac/Chest: regular rate, rhythm Abdomen: normal bowel sounds Skin: pallor Neuro/Psych: alert, normal mood/affect, oriented x 3 ICD10 Worksheet Patient Problems: Problems Problem Status Onset Dehydration Acute Fever Acute Tachycardia Acute Neutropenic fever Acute
--- NOTE | 2017-12-21 16:25 | HOSPPROG ---
Hospitalist Progress Note Assessment/Plan: Assessment: 27-year-old female presents with recurrent MSSA bacteremia secondary to suspected septic thrombophlebitis Plan: * Recurrent MSSA bacteremia. 12/20 BCx remain negative (pre-procedure), suspect 2/2 septic thrombophlebitis RIJ and brachiocephalic -s/p thrombectomy by Dr. River IR w/ partial removal -repeat BCx in AM -cont IV Nafcillin -MITCH negative * Septic thrombophlebitis. Suspected, at site of recent infected port removal -cont therapeutic Lovenox * Recurrent rhabdomyosarcoma -tx at [facility], patient and mother anticipating restarting tx once infxn cleared -patient reports tumor is in the umbilicus area, seen on CT * Recent port infection with abscess s/p removal/I&D -wound care -US negative for residual abscess * DM 1 w/ hyperglycemia. FBG 75, peak 230, cont on 25% higher rate Diet. Regular PPx. High risk, therapeutic lovenox Code. Full Dispo. ADD uncertain, pending clearance of bacteremia Subjective: denies pain post-procedure Objective: Vital Signs Temp Pulse Resp BP Pulse Ox 36.6 C 91 16 140/92 H 98 12/21/17 15:46 12/21/17 15:46 12/21/17 15:46 12/21/17 15:46 12/21/17 15:46 Microbiology 12/20/17 14:39 Gram Stain - Final Other - Aspirate Laboratory Results 12/21/17 06:00 12/21/17 06:00 12/20/17 12/21/17 12/22/17 05:59 05:59 05:59 Intake Total 1596 1600 Output Total 1050 Balance 1596 550 PT 15.9 SEC (12.0-15.0) H 12/11/17 22:25 INR 1.25 (0.83-1.16) H 12/11/17 22:25 - Physical Exam Constitutional: no apparent distress, not in pain, chronically ill appearing, obese, No uncomfortable Cardiovascular: regular rate and rhythym, no murmur, rub, or gallop, edema ( trace bilat LE) Respiratory: no respiratory distress, no rales or rhonchi, clear to auscultation Gastrointestinal: normoactive bowel sounds, soft, non-tender abdomen, No guarding, No distension Skin: other (less firmness R IJ site, minimal erythema R suture site, no extension beyond bandage site, no soft tissue tenderness) Neurologic: AAOx3 Psychiatric: interacting appropriately, not anxious, not encephalopathic, thought process linear ICD10 Worksheet Patient Problems: Problems Problem Status Onset Fever Acute Tachycardia Acute Dehydration Acute Neutropenic fever Acute
[2017-12-21] MEDS: CITALOPRAM 20 MG TAB PO SCH (21:42)
[2017-12-21] MEDS: Norgestrel-Ethinyl Estradiol [Low-Ogestrel-28 Tablet] 1 EACH PO SCH (21:42)
[2017-12-21] MEDS: MELATONIN 3 MG TAB PO SCH (21:42)
[2017-12-22] MEDS: NAFCILLIN SODIUM 2 GM in D5W 100 ML IV SCH ×6 (02:40→22:14)
[2017-12-22] MEDS: PROMETHAZINE HCL 25 MG/ML INJ IVP PRN (03:27)
[2017-12-22] MEDS: LIOTHYRONINE SODIUM 5 MCG TAB PO SCH (05:42)
[2017-12-22] MEDS: LEVOTHYROXINE 125 MCG TAB PO SCH (05:42)
[2017-12-22] MEDS: ENOXAPARIN 100 MG/ML SYR SC SCH ×2 (09:27→22:13)
[2017-12-22] MEDS: metroNIDAZOLE 500 MG TAB PO SCH ×3 (09:27→22:14)
--- NOTE | 2017-12-22 11:05 | PDIAF ---
- Diagnosis Diagnosis: Sepsis Code Status: Full Code - Medication Management Discharge Medications: Medications to Continue on Transfer Citalopram [CeleXA 20 MG] 20 mg PO HS 11/28/17 [Last Taken 12/11/17] Insulin Pump, [facility] 11/28/17 [Last Taken 11/28/17] Levothyroxine [Synthroid 125 mcg (*)] 125 mcg PO DAILY06 11/28/17 [Last Taken ] Liothyronine Sodium [Cytomel 5 mcg (*)] 5 mcg PO DAILY 11/28/17 [Last Taken ] Melatonin [Melatonin 3 MG (*)] 3 mg PO HS 11/28/17 [Last Taken 12/11/17] Norgestrel-Ethinyl Estradiol [Bgc-Jdacsavy-15 Tablet] 1 each PO DAILY 11/28/17 [ Last Taken 12/11/17] Calcium Carbonate [Tums 500MG (*)] 500 mg PO Q4H PRN tab.chew 12/05/17 [Last Taken Unknown] ceFAZolin 2 GM/DEXTROSE [Ancef 2 gm] 2 gm IV Q8HRS bag 12/05/17 [Last Taken ] oxyCODONE/APAP 5/325 [Percocet 5/325 (*)] 1 - 2 tab PO Q4HRS PRN #15 tab [Last Taken Unknown] LORazepam [Ativan (*)] 1 mg PO DAILY PRN 12/12/17 [Last Taken Unknown] Prochlorperazine Maleate [Compazine 10mg (*)] 10 mg PO TID PRN 12/12/17 [Last Taken Unknown] Half-Way Antibiotics: Nafcillin 12 g per 24 hr Half-Way Antibiotic Stop Date: 01/31/18 Discharge Medications: Refer to the Discharge Home Medication list for PRN reason. PICC Care - Routine: Yes - Orders Isolation Type: None Additional Instructions: Wound care orders Change dressings to right chest wound every 3 days and prn. 1. Clean with ns and gauze 2. tear off a piece of Colactive Plus Ag (may be substituted with teo ag ) and apply a piece just large enough to cover the wound bed. There shouldnt be much extra, but if there is you may overlap it onto itself. 3. Apply 2-3 drops of NS to collagen so that it is wet 4. Cut Durafiber and place it to fill in the remaining space of the wound. 5. Cover with small allevyn life or other foam border dressing. Ivelisse Gloria CWON - Labs/Radiology CBC w/diff Date: 12/26/17 (please fax results to Dr. Kohli [phone]. needs weekly CBC with diff) CMP Date: 12/26/17 (as above. needs weekly CMP) - Follow Up Care Current Providers and Referrals: Titus Kohli MD [Medical Doctor] - (Patient has appointment with Sushma Bunch NP Tuesday, December 28 at 1:15 p.m.) Nayan Jo MD [Primary Care Provider] - As per Instructions
--- NOTE | 2017-12-22 11:16 | PCMIDPN ---
Assessment/Plan: 1. History of fever with recurrent MSSA bacteremia status post partial thrombectomy: Repeat blood cultures prior to thrombectomy are negative. Will repeat a set of cultures today, as previous blood cultures done prior to thrombectomy. Patient is by report of the nurse refusing a PICC line, as she was told by her oncologist at [place] that she should never have a PICC line moving forward. My colleague, Dr. Kohli has spoken with this oncologist. Will ask that they touch base again today to discuss this issue, as the patient needs access for continuous infusion nafcillin. Will also discuss with Dr. Kohli duration of oral metronidazole for Prevotella isolated in blood cultures December 11, as I am not sure with right answer is here. Blood cultures subsequently have not grown this organism. 12/22/17 11:18 Subjective: Patient is status post partial thrombectomy; the entire clock could not be removed as it was adherent to the vessel wall. Patient is anxious to go home. Threw up last night, but states this was unrelated to oral metronidazole. Objective: Nafcillin 2 g IV q.4 hours day 10 Metronidazole 500 mg p.o. Three times daily day 2 No fevers Vital Signs Temp Pulse Resp BP Pulse Ox 36.8 C 75 15 122/75 H 98 12/22/17 08:15 12/22/17 08:15 12/22/17 08:15 12/22/17 08:15 12/22/17 08:15 Microbiology 12/20/17 14:39 Gram Stain - Final Other - Aspirate Laboratory Results 12/21/17 06:00 12/21/17 06:00 12/21/17 12/22/17 12/23/17 05:59 05:59 05:59 Intake Total 1600 2200 Output Total 1050 Balance 550 2200 Blood culture 724 x 2 no growth Clot culture no growth, Gram stain 3+ polys no organisms Blood culture 721 x 2 1/4 bottles MSSA Blood cultures from 715 1 set with a Gram-positive kyle, not yet identified. I did call the microbiology lab. They are not convinced that this is even a gram- positive kyle and are going to Gram stain it again. They state that it is very slow growing. The other set grew prevotella. - Physical Exam General Appearance: no apparent distress, obese EENT: pharynx normal Respiratory: lungs clear Skin: No rash ICD10 Worksheet Patient Problems: Problems Problem Status Onset Dehydration Acute Fever Acute Tachycardia Acute Neutropenic fever Acute
--- NOTE | 2017-12-22 12:02 | SOAPPROG ---
SOAP Progress Note Assessment/Plan: Assessment: 1. Recurrent rhabdomyosarcoma 2. MSSA sepsis 3. R IJ septic thrombophlebitis I discussed with the patient and her father the various types of IV access options as an outpatient. We discussed: Ports PICC mid-length lines peripheral IV We talked about the pros and cons of each. A this time the patient wishes to use the peripheral IV option. She understands that she will eventually need a PICC or Port for chemo, but wishes to make this decision (type and timing) with her primary oncologist at [facility]. Plan: - IV antibiotics until 31 JAN 2018 per ID - no further chemo until this is resolved. She is followed at [facility]. I'll sign off for now. Please call with questions. Subjective: Very clear that she does not want a PICC replaced at this time Objective: Vital Signs Temp Pulse Resp BP Pulse Ox 36.8 C 75 15 122/75 H 98 12/22/17 08:15 12/22/17 08:15 12/22/17 08:15 12/22/17 08:15 12/22/17 08:15 Microbiology 12/20/17 14:39 Gram Stain - Final Other - Aspirate Laboratory Results 12/21/17 06:00 12/21/17 06:00 12/20/17 12/21/17 12/22/17 23:59 23:59 23:59 Intake Total 1696 2300 900 Output Total 300 750 Balance 1396 1550 900 PT 15.9 SEC (12.0-15.0) H 12/11/17 22:25 INR 1.25 (0.83-1.16) H 12/11/17 22:25 Physical Exam - Physical Exam General Appearance: alert, no apparent distress Skin: pallor Neuro/Psych: alert, normal mood/affect, oriented x 3 ICD10 Worksheet Patient Problems: Problems Problem Status Onset Dehydration Acute Fever Acute Tachycardia Acute Neutropenic fever Acute
--- NOTE | 2017-12-22 15:36 | HOSPPROG ---
Hospitalist Progress Note Assessment/Plan: Assessment: 27-year-old female presents with recurrent MSSA bacteremia secondary to suspected septic thrombophlebitis Plan: * Recurrent MSSA bacteremia. POA, 12/20 BCx remain negative (pre-procedure), suspect 2/2 septic thrombophlebitis RIJ and brachiocephalic -repeat BCx now -cont IV Nafcillin, d/w Dr. Kohli, he recommends continuous home infusion via PICC, but patient does not want PICC b/c she feels like she is high-risk for reoccurrence of bacteremia -counseled patient/family extensively that, now that her BCx are sterilized, placing a PICC for ongoing Abx is the recommended modality, and the risk of reoccurrence of bacteremia is low (Dr. Kohli will reinforce our impression that her original reoccurrence of bacteremia was felt to be 2/2 clot from original port, NOT from her indwelling PICC) -Dr. Kohli will genetic counsellor patient this PM that peripheral IV risk of infiltration and inadequate Abx > risk of reoccurrence of bacteremia from PICC, and we will proceed once patient has made a decision * Septic thrombophlebitis. POA, suspected, at site of recent infected port removal, suspect this was the cause of persistent bacteremia -s/p thrombectomy by Dr. 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 Kohli, he is more concerned about neutropenic infxn when they re-start chemo than delay in chemo which has been caused by her current MSSA infxn * Recent port infection with abscess s/p removal/I&D, pocket has closed down to < 1 cm -ongoing wound care -US negative for residual abscess * DM 1 w/ hyperglycemia. FBG 109, peak 186, cont on 25% higher rate Diet. Regular PPx. High risk, therapeutic lovenox Code. Full Dispo. ADD 12/22 vs. 12/23, pending patient decision about home IV Abx infusion. Subjective: no pain in chest, patient would like to DC home Objective: Vital Signs Temp Pulse Resp BP Pulse Ox 36.6 C 80 17 127/91 H 99 12/22/17 15:25 12/22/17 15:25 12/22/17 15:25 12/22/17 15:25 12/22/17 15:25 Microbiology 12/20/17 14:39 Gram Stain - Final Other - Aspirate Laboratory Results 12/21/17 06:00 12/21/17 06:00 12/21/17 12/22/17 12/23/17 05:59 05:59 05:59 Intake Total 1600 2200 Output Total 1050 Balance 550 2200 PT 15.9 SEC (12.0-15.0) H 12/11/17 22:25 INR 1.25 (0.83-1.16) H 12/11/17 22:25 - Time Spent With Patient Time Spent with Patient: greater than 35 minutes Time Spent with Patient: Greater than 35 minutes spent on this patients care, greater than 50% of time spent counseling, educating, and coordinating care regarding the above mentioned plan. - Physical Exam Constitutional: no apparent distress, not in pain, chronically ill appearing, obese, No uncomfortable Neurologic: AAOx3 Psychiatric: interacting appropriately, not anxious, not encephalopathic, thought process linear ICD10 Worksheet Patient Problems: Problems Problem Status Onset Fever Acute Tachycardia Acute Dehydration Acute Neutropenic fever Acute
[2017-12-22] MEDS: Norgestrel-Ethinyl Estradiol [Low-Ogestrel-28 Tablet] 1 EACH PO SCH (22:13)
[2017-12-22] MEDS: MELATONIN 3 MG TAB PO SCH (22:14)
[2017-12-22] MEDS: CITALOPRAM 20 MG TAB PO SCH (22:14)
[2017-12-23] MEDS: NAFCILLIN SODIUM 2 GM in D5W 100 ML IV SCH ×4 (02:27→13:52)
[2017-12-23] MEDS: LIOTHYRONINE SODIUM 5 MCG TAB PO SCH (05:50)
[2017-12-23] MEDS: LEVOTHYROXINE 125 MCG TAB PO SCH (05:50)
--- NOTE | 2017-12-23 08:11 | HOSPPROG ---
Hospitalist Progress Note Assessment/Plan: #Recurrent MSSA bacteremia: IV Nafcillin, Flagyl. FU ID #Septic thrombophlebitis: s/p partial thrombectomy #Recurrent rhabdomyosarcoma: followed at [facility] #Recent port infection/abscess: s/p I&D and removal #Type1 DM: insulin pump #Disp: DC today with mom, home maker for abx Subjective: ready to go. No N/V/D Objective: Vital Signs Temp Pulse Resp BP Pulse Ox 36.8 C 72 15 109/69 98 12/22/17 23:23 12/22/17 23:23 12/22/17 23:23 12/22/17 23:23 12/22/17 23:23 Microbiology 12/17/17 16:21 Blood Culture - Final Blood 12/17/17 16:30 Blood Culture - Final Blood Staphylococcus Aureus 12/20/17 14:39 Gram Stain - Final Other - Aspirate Laboratory Results 12/21/17 06:00 12/21/17 06:00 12/22/17 12/23/17 12/24/17 05:59 05:59 05:59 Intake Total 2200 1607 Balance 2200 1607 PT 15.9 SEC (12.0-15.0) H 12/11/17 22:25 INR 1.25 (0.83-1.16) H 12/11/17 22:25 - Physical Exam Constitutional: no apparent distress Eyes: PERRL Ears, Nose, Mouth, Throat: moist mucous membranes Cardiovascular: regular rate and rhythym Respiratory: no respiratory distress Gastrointestinal: normoactive bowel sounds Genitourinary: no bladder fullness Skin: warm, other (TIA chest port side dressed, no surrounding redness) Musculoskeletal: full muscle strength Neurologic: AAOx3, CN II-XII Intact Psychiatric: interacting appropriately ICD10 Worksheet Patient Problems: Problems Problem Status Onset Dehydration Acute Fever Acute Tachycardia Acute Neutropenic fever Acute
[2017-12-23 08:26] VITALS: BP 132/98
--- NOTE | 2017-12-23 09:40 | PCMIDPN ---
Assessment/Plan: 1. History of fever with recurrent MSSA bacteremia status post partial thrombectomy: As per the above discussion, patient is now willing to get a PICC line. This needs to be in the left arm, given clots in the right. Just spoke to Dr. Huynh, who will come see patient this morning to discuss. Hopefully this will be without issue, and she can go home this afternoon. Under agency transfer form completed. She will need 11 more days of metronidazole orally, stop date January 03. I have asked Dr. Bennett to please write her a prescription for metronidazole 500 mg p.o. Three times daily times 11 more days. Patient has an appointment in our clinic as outlined yesterday. Subjective: My colleague, Dr. Kohli came up yesterday afternoon to talk with the patient and her parents after he called the patient's oncologist. The patient's oncologist at [facility] agrees with a PICC line, and understands that nafcillin cannot be given through a peripheral line. Spoke with patient today without parents in the room. She states that she is willing to get a PICC line, but needs to be in the left arm. Dr. Kohli spoke with Dr. Huynh, who feels that she can do this in the left arm. Please see impression and plan. Patient denies any other complaints. Eager to get out of the hospital. Understands that if she wanted a peripheral IV, would need to go to a custodial facility, which she adamantly does not want to do. Objective: Nafcillin 2 g IV q.4 hours day 11 Metronidazole 500 mg p.o. Three times daily day 3 Afebrile Vital Signs Temp Pulse Resp BP Pulse Ox 36.8 C 68 16 132/98 H 98 12/23/17 08:24 12/23/17 08:24 12/23/17 08:24 12/23/17 08:24 12/23/17 08:24 Microbiology 12/20/17 14:39 Gram Stain - Final Other - Aspirate 12/17/17 16:21 Blood Culture - Final Blood 12/17/17 16:30 Blood Culture - Final Blood Staphylococcus Aureus Laboratory Results 12/21/17 06:00 12/21/17 06:00 12/22/17 12/23/17 12/24/17 05:59 05:59 05:59 Intake Total 2200 1607 Balance 2200 1607 Blood culture 7/24 remain no growth Clot culture remains no growth Blood cultures x2 yesterday no growth so far ICD10 Worksheet Patient Problems: Problems Problem Status Onset Dehydration Acute Fever Acute Tachycardia Acute Neutropenic fever Acute
[2017-12-23] MEDS: metroNIDAZOLE 500 MG TAB PO SCH (10:00)
[2017-12-23] MEDS: ENOXAPARIN 100 MG/ML SYR SC SCH (10:00)
[2017-12-23] MEDS ORDERED: ALTEPLASE 2 MG VIAL IVP PRN (10:09)
--- NOTE | 2017-12-23 11:25 | PDIAF ---
- Diagnosis Diagnosis: Sepsis Code Status: Full Code - Medication Management Discharge Medications: Medications to Continue on Transfer Citalopram [CeleXA 20 MG] 20 mg PO HS 11/28/17 [Last Taken 12/11/17] Insulin Pump, Patient Own 1 ea MISC AD 11/28/17 [Last Taken 11/28/17] Levothyroxine [Synthroid 125 mcg (*)] 125 mcg PO DAILY06 11/28/17 [Last Taken ] Liothyronine Sodium [Cytomel 5 mcg (*)] 5 mcg PO DAILY 11/28/17 [Last Taken ] Melatonin [Melatonin 3 MG (*)] 3 mg PO HS 11/28/17 [Last Taken 12/11/17] Norgestrel-Ethinyl Estradiol [Ufp-Xjpvtvic-60 Tablet] 1 each PO DAILY 11/28/17 [ Last Taken 12/11/17] Calcium Carbonate [Tums 500MG (*)] 500 mg PO Q4H PRN tab.chew 12/05/17 [Last Taken Unknown] oxyCODONE/APAP 5/325 [Percocet 5/325 (*)] 1 - 2 tab PO Q4HRS PRN #15 tab [Last Taken Unknown] LORazepam [Ativan (*)] 1 mg PO DAILY PRN 12/12/17 [Last Taken Unknown] Prochlorperazine Maleate [Compazine 10mg (*)] 10 mg PO TID PRN 12/12/17 [Last Taken Unknown] Enoxaparin [Lovenox 100 MG (*)] 100 mg SC BID #60 syr 12/23/17 [Last Taken Unknown] metroNIDAZOLE [Flagyl 500 mg (*)] 500 mg PO TID #32 tab 12/23/17 [Last Taken Unknown] Half-Way Antibiotics: Nafcillin 12 g per 24 hr Flight Hostess Antibiotic Stop Date: 01/31/18 Discharge Medications: Refer to the Discharge Home Medication list for PRN reason. PICC Care - Routine: Yes - Orders Services needed: Home Care, Registered Nurse Home Care Face to Face: I certify that this patient was under my care and that I had the required [id number] encounter meeting the encounter requirements on the discharge day. My findings support the fact that the patient is homebound as defined in Home Care Face to Face Continued: CMS Chapter 7 Medicare Benefits Manual 30.1.1 , The condition of the patient is such that there exists a normal inability to leave home and consequently, leaving home would require a considerable and taxing effort. Isolation Type: None Diet Recommendation: no restrictions on diet Diet Texture: Regular Texture Diet Additional Instructions: Wound care orders Change dressings to right chest wound every 3 days and prn. 1. Clean with ns and gauze 2. tear off a piece of Colactive Plus Ag (may be substituted with teo ag ) and apply a piece just large enough to cover the wound bed. There shouldnt be much extra, but if there is you may overlap it onto itself. 3. Apply 2-3 drops of NS to collagen so that it is wet 4. Cut Durafiber and place it to fill in the remaining space of the wound. 5. Cover with small allevyn life or other foam border dressing. Ivelisse Gloria CWON - Labs/Radiology CBC w/diff Date: 12/26/17 (please fax results to Dr. Kohli [phone]. needs weekly CBC with diff) CMP Date: 12/26/17 (as above. needs weekly CMP) - Follow Up Care Current Providers and Referrals: Titus Kohli MD [Medical Doctor] - (Patient has appointment with Sushma Bunch NP December 28 at 1:15 p.m.) Nayan Jo MD [Primary Care Provider] - As per Instructions
[2017-12-23] MEDS ORDERED: IOPAMIDOL (ISOVUE-300) 100 ML BTL ONE (11:34)
--- NOTE | 2017-12-23 12:11 | ASMTCMCOM ---
CM Note CM Note Notes: Pt had PICC inserted today and will DC home with [facility] and [facility]. Final orders faxed. Plan is for [facility] to deliver ABX at 4:30 and [facility] RN to arrive ~5:00 to set pt up with continuous ABX. Pt and mother aware of plan. Date Signed: 12/23/2017 12:10 PM Electronically Signed By:Toshia Sommer LCSW
--- NOTE | 2017-12-23 12:59 | GDS ---
[f rep st] DISCHARGE SUMMARY DISCHARGE DIAGNOSES: 1. Recurrent MSSA bacteremia due to septic thrombophlebitis, right internal jugular. 2. Recurrent rhabdomyosarcoma, type 1 diabetes, recent admission for neutropenic fever for methicillin-susceptible Staphylococcus aureus bacteremia. 3. Recent port infection/abscess, status post incision and drainage by Dr. Chowdary, 12/04. 4. Hypothyroidism. 5. Septic thrombophlebitis, status post thrombectomy with partial removal. HISTORY OF PRESENT ILLNESS: A pleasant 27-year-old female with recurrent rhabdomyosarcoma, recently admitted for neutropenic fever secondary to MSSA bacteremia. She was discharged from the hospital, 12/05, with nafcillin treatment for port infection. Port was removed, and small abscess I and D'd by Dr. Chowdary on 12/04. She has been having chills since she left the hospital. Also complained of foul-smelling urine. PROCEDURES: 12/20/2017: Thrombectomy. Chronic clot adherent to the vessel wall, difficult for thrombectomy. Small amount of clot retrieved. HOSPITAL COURSE BY PROBLEM: 1. Recurrent MSSA bacteremia: thrombophlebitis right innominate/IJ; status post partial thrombectomy by IR. PICC line was placed for continuous nafcillin and will complete 11 more days of Flagyl. Follow up with Infectious Disease. IV antibiotics through January 31. 2. Septic thrombophlebitis: Continue Lovenox per Oncology. She will follow up with her primary oncologist at [facility] and can consider changing to a novel agent. 3. Recent port infection, status post I and D of the abscess and removal. 4. Type 1 diabetes, insulin pump. 5. Hypothyroidism, leave on levothyroxine. 6. Recurrent rhabdomyosarcoma. She has a followup appointment next week with her primary oncologist at [facility]. DISPOSITION: Patient is stable for discharge home with her mother in [place] with a home care nurse. MEDICATIONS: 1. Flagyl 500 mg t.i.d. for 11 more days. 2. Nafcillin. FOLLOWUP: 1. Primary oncologist. 2. Infectious Disease. Time spent on discharge: Greater than 30 minutes counseling patient and her mother on medication and followup plan. /[id number]/MODL MTDD
[2017-12-23] MEDS: ACETAMINOPHEN 325 MG TAB PO PRN (13:23)
--- NOTE | 2017-12-24 09:41 | ASDISCHSUM ---
Discharge Information Plan Status: Medically Cleared to Leave: Discharge Date:12/23/2017 03:28 PM D/C Disposition: ADT D/C Disposition:Home, Routine, Self-Care Projected Discharge Date:12/15/2017 11:00 AM Transportation at D/C: Discharge Delay Reason: Follow-Up Date:12/15/2017 11:00 AM Discharge Slot: Final Diagnosis: Placement Information Referral Type:*Home Health Care Services Referral ID:[id number] Provider Name:[facility] Care Address [address] Address 2: City:[place] Selection Factors: State:[place] Referral Type:Home Infusion Referral ID:[id number] Provider Name:[facility] Address 1:[address] Address 2: City:[place] Selection Factors: State:[place] Patient Contact Information Contact Name:JOSE MARIA Relationship:Mother Address:[address] Work Phone: City:[facility] Phone: [facility]/Zip Code:[place] [address] Email: Financial Information Financial Class:[employer] Primary Plan Desc:[facility] Primary Plan Number:[id number] Secondary Plan Desc: Secondary Plan Number: Assessment Information [facility] CM Progress Note CM Note CM Note Notes: Chart reviewed. Patient admitted for ongoing chills and symptoms of UTI and diarrhea, Sje is s/p mediport removal. Ultrasound of right arm pending. Mom at bedside. Current with [facility]. Plan TBD. Plan: Home with [facility] when medically cleared for discharge. Date Signed: 12/12/2017 05:11 PM Electronically Signed By:Virginia Rich RN [facility] CM Progress Note CM Note CM Note Notes: CM reviewed chart for D/C planning. Pt continues with her treatment; a cardiology intervention assessed for thrombus and/or vegetation. CM will follow. D/C Plan: Anticipate home with home care. Date Signed: 12/15/2017 01:59 PM Electronically Signed By:Cary Rowley [facility] CM Progress Note CM Note CM Note Notes: Pt is current with [facility] for IV ABX as well as [facility] for RN. Pt's PICC removed due to infection. It will be replaced once bacteremia clears. [facility] will need the new PICC line report. CM to follow. Date Signed: 12/16/2017 10:47 AM Electronically Signed By:Toshia Sommer LCSW [facility] CM Progress Note CM Note CM Note Notes: Spoke with [facility] regarding massage for patient. They have her scheduled for 4:00 PM today. CM will follow. Date Signed: 12/19/2017 02:14 PM Electronically Signed By:Mireille Carrero LCSW [facility] CM Progress Note CM Note CM Note Notes: Patient to IR today for thrombectomy. Discharge plan remains home with [facility] and [facility] for infusion services. Case Management will follow. Date Signed: 12/20/2017 01:42 PM Electronically Signed By:Tressa Ulloa RN [facility] CM Progress Note CM Note CM Note Notes: Pt had PICC inserted today and will DC home with [facility] and [facility]. Final orders faxed. Plan is for [facility] to deliver ABX at 4:30 and [facility] RN to arrive ~5:00 to set pt up with continuous ABX. Pt and mother aware of plan. Date Signed: 12/23/2017 12:10 PM Electronically Signed By:Tosiha Sommer LCSW Intervention Information
--- NOTE | 2018-01-16 15:19 | ECHO ---
[email or web address] [address] [address] Main: [phone] Fax: Transesophageal Echocardiography Name: JOHN BYRD MR#: [id number] Study Date: 12/15/2017 Study Time: 08:42 AM Date of : 1990 Age: 27 year(s) Height: ( ) Weight: ( ) BSA: Gender: Female Examination: MITCH Indication: Eval for Valve Vegetation Image Quality: Contrast: Requested by: Willie Sloan Heart Rate: Rhythm: BP: / Procedure Staff Data Conversion Operator: Tc Victoria RDCS Reading Physician: Willie Sloan MD Requesting Provider: MITCH Exam Details Patient Consent: Risks, alternatives of procedure explained to patient, informed consent obtained. Conclusions: Normal size left ventricle. No LV hypertrophy. Normal global systolic LV function. No regional wall motion abnormality. Normal diastolic LV function. The left atrium is normal in size. An agitated saline study was performed and was negative for intracardiac shunting. Good color flow doppler in the left atrial appendage. Normal PW-Doppler flow pattern. No thrombus in left appendage. The mitral valve is normal in appearance and function. The aortic valve is normal in appearance and function. The tricuspid valve is normal in appearance and function. The pulmonic valve is normal in appearance and function. No pericardial effusion. There is no obvious valve vegetation noted. . Measurements: Chambers Valvular Assessment AV/MV Valvular Assessment TV/PV Normal Normal Normal Name Value Range Name Value Range Name Value Range Additional Measurements: Patient: JOHN BYRD Study Date: 12/15/2017 Page 1 of 2 08:42 AM Findings: Left Ventricle: Normal size left ventricle. No LV hypertrophy. Normal global systolic LV function. No regional wall motion abnormality. Normal diastolic LV function. Right Ventricle: Normal size right ventricle. Left Atrium: The left atrium is normal in size. An agitated saline study was performed and was negative for intracardiac shunting. Left Atrial Appendage: Good color flow doppler in the left atrial appendage. Normal PW-Doppler flow pattern. No thrombus in left appendage. Right Atrium: The right atrium is normal in size. Mitral Valve: The mitral valve is normal in appearance and function. Aortic Valve: The aortic valve is normal in appearance and function. Tricuspid Valve: The tricuspid valve is normal in appearance and function. Pulmonic Valve: The pulmonic valve is normal in appearance and function. Aorta: The aorta is normal. Pericardium: No pericardial effusion. Exam Comments: There is no obvious valve vegetation noted. . l1n (No Signature Object) Patient: JOHN BYRD Study Date: 12/15/2017 Page 2 of 2 08:42 AM [id number]
== END 2017-12-23 15:28 | disposition home or self-care (01) | DRG 253 ==
LOC: CED 19:58 → CEDHOLD 21:34 → F1N 12-12 00:49
PROVIDERS: ADMIT Internal Medicine; ATTEND Internal Medicine Infectious Disease
PROC: B246ZZ4 Ultrasonography of Right and Left Heart, Transesophageal (ICD-10-PCS; 2017-12-15)
PROC: 05CM3ZZ Extirpation of Matter from Right Internal Jugular Vein, Percutaneous Approach (ICD-10-PCS; principal; 2017-12-20 14:47)
PROC: 02HV33Z Insertion of Infusion Device into Superior Vena Cava, Percutaneous Approach (ICD-10-PCS; 2017-12-23)
DX: T82.868A Thrombosis due to vascular prosthetic devices, implants and grafts, initial encounter (principal); R78.81 Bacteremia; B95.61 Methicillin susceptible Staphylococcus aureus infection as the cause of diseases classified elsewhere; R19.7 Diarrhea, unspecified; E10.65 Type 1 diabetes mellitus with hyperglycemia; C49.4 Malignant neoplasm of connective and soft tissue of abdomen; Z96.41 Presence of insulin pump (external) (internal); Z79.4 Long term (current) use of insulin; E03.9 Hypothyroidism, unspecified; Z92.3 Personal history of irradiation
CPT/HCPCS: 71046-PO; 80048-PO; 82947-QW; 83605-PO; 96365; C1751; C1757; C1769; C1887; C1892; C1894; J1335; J1644; J1650; J2060; J2185; J2250; J2310; J2550; J3010; J3370; Q9967